=== PATIENT | female | born 1960 | race Caucasian/White ===

== ENCOUNTER 2018-11-14 20:18 | Inpatient (IN) | payer MEDICAID ==
--- NOTE | 2018-11-14 21:06 | ED Physician Chart ---
ED Chief Complaint/HPI - Patient Information Date Seen:: 11/14/18 Time Seen:: 20:45 Chief Complaint:: shortness of breath History of Present Illness:: Patient called paramedics for shortness of breath of one hour duration. She also complains of diffuse myalgias and generalized weakness. She has chest pain along the left inferior sternal border. Patient stated she last had dialysis 1 week ago. Paramedics said she last had dialysis 11 days ago and patient agreed it could have been 11 days. 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) Review:: Nurse's Note Reviewed, Transfer documents Reviewed ED Review of Systems - Review of Systems General/Constitutional: No fever, No chills, Weakness Skin: No skin lesions Head: No headache Eyes: No loss of vision ENT: No earache Neck: No neck pain, No swelling Cardio Vascular: Chest pain Pulmonary: SOB GI: No nausea, No vomiting, No diarrhea G/U: No dysuria Musculoskeletal: Bone or joint pain, Back pain, Muscle pain Hematopoietic: No bruising Allergic/Immuno: No urticaria Neurological: No syncope ED Past Medical History - Past Medical History Past Medical History: HTN, CHF, Asthma/COPD Family History: Diabetes Melitus, HTN Social History: No Alcohol, Care Facility, Other (quit smoking about one year ago) Psychiatricy History: None Family Medical History - Family Member Mother History Unknown: Yes ED Physical Exam - Physical Examination General/Constitutional: Alert Other Gen/Cons comments:: Mildly chronically ill-appearing; mild respiratory distress Head: Atraumatic Eyes: Lids, conjuctiva normal, PERRL Skin: Nl inspection, No rash, No skin lesions, No ecchymosis, Well hydrated, No lymphadenopathy ENMT: External ears, nose nl, TM canals nl, Nasal exam nl Other ENMT comments:: 2.5 out of 4 periodontal disease Neck: No nuchal rigidity Respiratory: Nl effort/Exclusion, Clear to Auscultation, No Wheeze/Rhonchi/Rales Cardio Vascular: RRR, No murmur, gallop, rubs GI: No tenderness/rebounding/guarding, No organomegaly, No hernia, Normal BS's Extremities: Normal digits & nails Neuro/Psych: No focal deficits ED Labs/Radiology/EKG Results - Lab Results Results: Laboratory Results WBC 5.4 Th/cmm (4.8-10.8) 11/14/18 21:10 RBC 3.32 Mil/cmm (3.80-5.10) L 11/14/18 21:10 Hgb 9.6 gm/dL (12-16) L 11/14/18 21:10 Hct 29.2 % (41.0-60) L 11/14/18 21:10 MCV 87.8 fl (81-100) 11/14/18 21:10 MCH 28.9 pg (27.0-31.0) 11/14/18 21:10 MCHC Differential 33.0 pg (28.0-36.0) 11/14/18 21:10 RDW 15.2 % (11.5-20.0) 11/14/18 21:10 Plt Count 213 Th/cmm (150-400) 11/14/18 21:10 MPV 8.6 fl 11/14/18 21:10 Neutrophils % 70.9 % (40.0-80.0) 11/14/18 21:10 Lymphocytes % 14.1 % (20.0-50.0) L 11/14/18 21:10 Monocytes % 11.0 % (2.0-10.0) H 11/14/18 21:10 Eosinophils % 3.6 % (0.0-5.0) 11/14/18 21:10 Basophils % 0.4 % (0.0-2.0) 11/14/18 21:10 PT 11.0 SECONDS (9.5-11.5) 11/14/18 21:10 INR 1.06 (0.5-1.4) 11/14/18 21:10 PTT (Actin FS) 32.2 SECONDS (26.0-38.0) 11/14/18 21:10 Sodium 135 mEq/L (136-145) L 11/14/18 21:10 Potassium 3.3 mEq/L (3.5-5.1) L 11/14/18 21:10 Chloride 96 mEq/L (98-107) L 11/14/18 21:10 Carbon Dioxide 28.9 mEq/L (21.0-31.0) 11/14/18 21:10 Anion Gap 13.4 (7.0-16.0) 11/14/18 21:10 BUN 135 mg/dL (7-25) H* 11/14/18 21:10 Creatinine 1.5 mg/dL (0.6-1.2) H 11/14/18 21:10 Est GFR ( Amer) 45.9 ml/min (>90) 11/14/18 21:10 Est GFR (Non-Af Amer) 37.9 ml/min 11/14/18 21:10 BUN/Creatinine Ratio 90.0 11/14/18 21:10 Glucose 164 mg/dL (70-105) H 11/14/18 21:10 Calcium 8.9 mg/dL (8.6-10.3) 11/14/18 21:10 Magnesium 1.8 mg/dL (1.9-2.7) L 11/14/18 21:10 B-Natriuretic Peptide 76.2 pg/mL (5.0-100.0) 11/14/18 21:10 - EKG Interpretations Rate & Rhythm: normal sinus rhythm with a rate of 59 [place]: normal Comments:: Q waves in V1 and V2 suggesting old septal myocardial infarction ED Assessment - Assessment General Assessment: She has a urinary tract infection and is extremely dehydrated. Patient be admitted to telemetry. I spoke to Vicki. Patient cannot have a CAT scan of her abdomen/pelvis because she is too wide for the table ED Septic Shock - . Is Septic Shock (SBP<90, OR Lactate>4 mmol\L) present?: No - <6hrs of presentation: Vital Signs: Vital Signs - 8 hr 11/14/18 20:20 Temp 97.1 F HR 66 RR 14 BP 96/45 O2 Sat % 96 ED Reassessment (Disposition) - Reassessment Reassessment Condition:: Unchanged - Diagnosis Diagnosis:: Urinary tract infection; severe dehydration; hypokalemia; hyperglycemia - Patient Disposition Admitted to:: Telemetry Admitting Medical Physician:: Norberto Manuel Condition at Disposition:: Stable, Unchanged
[2018-11-14 21:16] LABS: % BASOPHILS 0.4 % (0.0-2.0); % EOSINOPHILS 3.6 % (0.0-5.0); % LYMPHOCYTES 14.1 % (20.0-50.0); % NEUTROPHILS 70.9 % (40.0-80.0); EOSINOPHILE ABSOLUTE 0.2 Th/cmm (0.1-0.4); HEMATOCRIT 29.2 % (41.0-60); HEMOGLOBIN 9.6 gm/dL (12-16); LYMPHOCYTE ABSOLUTE 0.8 Th/cmm (1.5-3.0); MEAN CELL VOLUME 87.8 fl (81-100); MEAN CORPUSCULAR HEMOGLOBIN 28.9 pg (27.0-31.0); MEAN PLATELET VOLUME 8.6 fl; MONOCYTE ABSOLUTE 0.6 Th/cmm (0.3-1.0); NEUTROPHILE ABSOLUTE 3.8 Th/cmm (1.8-8.0); PLATELET COUNT 213 Th/cmm (150-400); RED BLOOD COUNT 3.32 Mil/cmm (3.80-5.10); RED CELL DISTRIBUTION WIDTH 15.2 % (11.5-20.0); WHITE BLOOD COUNT 5.4 Th/cmm (4.8-10.8)
[2018-11-14 21:34] LABS: ANION GAP 13.4 (7.0-16.0); CALCIUM SERUM 8.9 mg/dL (8.6-10.3); CARBON DIOXIDE 28.9 mEq/L (21.0-31.0); CREATININE - SERUM 1.5 mg/dL (0.6-1.2); GFR AFRICAN-AMERICAN 45.9 ml/min (>90); GFR NON AFRICAN-AMERICAN 37.9 ml/min; MAGNESIUM 1.8 mg/dL (1.9-2.7); POTASSIUM SERUM 3.3 mEq/L (3.5-5.1)
[2018-11-14 21:37] LABS: INR 1.06 (0.5-1.4)
[2018-11-14 21:45] LABS: URINE SOURCE FOLEY PORT
[2018-11-14 21:58] LABS: URINE BILIRUBIN NEGATIVE (NEGATIVE); URINE BLOOD LARGE (NEGATIVE); URINE GLUCOSE (UA) NEGATIVE (NEGATIVE); URINE KETONE NEGATIVE (NEGATIVE); URINE LEUKOCYTE ESTERASE MODERATE (NEGATIVE); URINE MICROSCOPIC INDICATED? YES; URINE NITRATE NEGATIVE (NEGATIVE); URINE PROTEIN 100 mg/dL (NEGATIVE); URINE UROBILINOGEN 0.2 E.U./dL (0.2 - 1.0)
[2018-11-14 22:05] LABS: URINE CLARITY CLOUDY (CLEAR); URINE COLOR YELLOW
[2018-11-14 22:08] LABS: URINE BACTERIA MANY /hpf (NONE SEEN); URINE EPITHELIAL CELLS FEW /lpf (FEW); URINE WBC 25-50 /hpf (0-5)
[2018-11-14] MEDS ORDERED: Sodium Chloride 0.9% 1,000 ML IV ONE (22:16)
[2018-11-14] MEDS ORDERED: cefTRIAXone 1 GM in Sodium Chloride 0.9% 50 ML IV ONE (22:16)
[2018-11-15] MEDS ORDERED: Potassium Chloride 20 mEq ER Tab PO ONE ×2 (00:15→00:18)
[2018-11-15] MEDS ORDERED: Sodium Chloride 0.9% 1,000 ML IV ONE (00:15)
[2018-11-15] MEDS ORDERED: Albuterol Nebulizer 2.5mg/3mL HHN PRN ×2 (01:41→02:32)
[2018-11-15] MEDS ORDERED: Ipratropium Neb 0.5 mg/2.5 mL UD HHN PRN (01:41)
[2018-11-15] MEDS ORDERED: Sodium Chloride 0.9% 1,000 ML IV SCH ×2 (01:41→01:58)
[2018-11-15] MEDS ORDERED: Hydrocodone/APAP 5mg/325mg Tab PO PRN (02:11)
[2018-11-15 04:06] VITALS: BP 102/60
[2018-11-15] MEDS ORDERED: INSULIN HUMAN REGULAR 100 UNITS/ML UNIT SUBQ SCH (07:30)
[2018-11-15] MEDS ORDERED: Insulin Glargine 100 units/ml 10ml Vial SUBQ SCH ×3 (07:30→21:00)
[2018-11-15] MEDS: Insulin Glargine 100 units/ml 10ml Vial SUBQ SCH ×3 (08:33→20:25)
[2018-11-15] MEDS: Vitamin B Complex w/Vitamin C Tab PO SCH (08:35)
[2018-11-15] MEDS: Ferrous Sulfate 325 MG TAB PO SCH ×2 (08:38→16:25)
[2018-11-15] MEDS: Diltiazem CD 120 mg 24H PO SCH (08:39)
[2018-11-15] MEDS: buPROPion XL 150 mg T 24 H PO SCH (08:41)
[2018-11-15] MEDS ORDERED: Non-Formulary Item 1 EA (Zinc Sulfate [Zinc Sulfate] 220 MG) PO SCH (09:00)
[2018-11-15] MEDS ORDERED: Non-Formulary Item 1 EA (Gabapentin [Neurontin] 600 MG) PO SCH (09:00)
[2018-11-15] MEDS ORDERED: buPROPion XL 150 mg T 24 H PO SCH (09:00)
[2018-11-15] MEDS ORDERED: Diltiazem CD 120 mg 24H PO SCH (09:00)
[2018-11-15] MEDS ORDERED: Ferrous Sulfate 325 MG TAB PO SCH (09:00)
[2018-11-15] MEDS ORDERED: Vitamin B Complex w/Vitamin C Tab PO SCH (09:00)
[2018-11-15] MEDS ORDERED: Non-Formulary Item 1 EA (Ascorbate Calcium [Vitamin C] 500 MG) PO SCH (09:00)
[2018-11-15] MEDS ORDERED: Non-Formulary Item 1 EA (Losartan Potassium [Cozaar] 100 MG) PO SCH (09:00)
[2018-11-15] MEDS ORDERED: Non-Formulary Item 1 EA (Vitamin B Complex [Vitamin B Complex] 1 TAB) PO SCH (09:00)
[2018-11-15] MEDS ORDERED: DILTIAZEM HCL 120 MG PO SCH (09:00)
--- NOTE | 2018-11-15 09:12 | Diagnostic Imaging Report ---
Portable chest x-ray Time: 2208 History: Congestive fat failure Allowing for portable technique the heart size is normal. No focal pulmonary parenchymal processes. No hilar or mediastinal abnormalities. Impression: No acute abnormalities.
--- NOTE | 2018-11-15 10:27 | History & Physical ---
ADMIT DATE: 11/15/2018 CHIEF COMPLAINT: Shortness of breath and increasing weakness. HISTORY OF PRESENT ILLNESS: This is a 58-year-old female who is a [place] [facility] resident of [facility], who has a 1-day history of shortness of breath, associated with increased generalized weakness. The patient also complained of having pain upon urination, no reports of any fevers at the [place] [facility]. The patient also stated that the last time she had dialysis was a week ago. For further management, the patient is admitted. PAST MEDICAL HISTORY: Hypertension, CHF, COPD, acute renal failure and type 2 diabetes. FAMILY HISTORY: Noncontributory. SOCIAL HISTORY: The patient is a [place] [facility] resident, requiring 24-hour nursing care. The patient recently quit smoking. FAMILY HISTORY: Noncontributory. ALLERGIES: FLUOXETINE. MEDICATIONS: Please see medication list. REVIEW OF SYSTEMS: GENERAL: Complains of weakness. CARDIOVASCULAR: Denies any chest pain. RESPIRATORY: Denies any shortness of breath. GASTROINTESTINAL: Denies nausea, vomiting, abdominal pain. GENITOURINARY: Complains of dysuria and hematuria. MUSCULOSKELETAL: Denies any bone or joint pain. All other systems are reviewed. PHYSICAL EXAMINATION: GENERAL: The patient is morbidly obese, awake, alert, in no apparent distress. VITAL SIGNS: Temperature 97.1, heart rate 61, blood pressure 97/44, respirations of 19, O2 at 95%. HEENT: Head is normocephalic, atraumatic. NECK: Supple. No mass. LUNGS: Clear bilaterally. HEART: Regular rhythm. ABDOMEN: Soft, nontender, nondistended. EXTREMITIES: +1 pitting edema bilateral lower extremity. LABORATORY DATA: WBC 5.4, H and H 9.6 and 29.2, platelet of 213. Sodium 135, potassium 3.3, chloride of 96, BUN 136, creatinine of 1.5, glucose of 164, magnesium of 1.8. DIAGNOSTICS: The patient had a chest x-ray done and impression is no acute abnormalities. ASSESSMENT: Acute urinary tract infection, acute renal failure, morbidly obese, anemia, hypomagnesemia, morbid obesity, hypertension, congestive heart failure, asthma, chronic obstructive pulmonary disease, type 2 diabetes. PLAN: The patient to be admitted to the telemetry unit. We will get Nephrology consultation. We will treat the patient with gentle IV fluids for hydration, IV antibiotics of Rocephin. We will get PT evaluation. We will send urine for culture. We will also get wound care consult as well. We will hold the patient's blood pressure medications for now due to patient's systolic pressure in the 90s. We will get followup labs for tomorrow morning. Accu-Chek a.c. and at bedtime with sliding scale. I will continue to monitor this patient. JOB# [id number]
[2018-11-15] MEDS: cefTRIAXone 1 GM in Sodium Chloride 0.9% 50 ML IV SCH (11:49)
[2018-11-15] MEDS: INSULIN LISPRO SLIDING SCALE 100 UNITS/ML UNIT SUBQ SCH ×3 (12:03→20:25)
[2018-11-15] MEDS ORDERED: Mag Sulfate 2gm/50mL Premix 2 GM/50 ML BAG IV ONE (15:37)
[2018-11-15] MEDS: Sodium Chloride 0.9% 1,000 ML IV SCH (16:19)
[2018-11-15] MEDS: Atorvastatin Calcium 10 MG TAB PO SCH (20:24)
[2018-11-15] MEDS ORDERED: Atorvastatin Calcium 10 MG TAB PO SCH (21:00)
[2018-11-15] MEDS: Hydrocodone/APAP 5mg/325mg Tab PO PRN (21:57)
[2018-11-15 23:40] LABS: EOSINOPHIL SMEAR SOURCE URINE
[2018-11-15 23:41] LABS: EOSINOPHILS SMEAR COUNT NONE SEEN (NONE SEEN)
--- NOTE | 2018-11-16 05:11 | Consultation ---
DATE OF CONSULTATION: 11/15/2018 REASON FOR CONSULTATION: Worsening kidney function, electrolyte imbalance, and fluid management. HISTORY OF PRESENT ILLNESS: This is a 58-year-old female with past medical history of chronic kidney disease, who came in because of lower abdominal pain. Two years prior to admission, the patient was diagnosed to have uterine cancer and had a total abdominal hysterectomy. She was also scheduled at that time to have radiation treatment, but developed arrhythmia. Thus, she never had a radiation treatment. However, since then, she has had intermittent abdominal discomfort. Three days prior to admission, she developed lower abdominal pain, worse than usual. She stated that she had not had any bowel movement for several days. She noted that she had dark stools (on oral iron). She also noted gross hematuria. She has been on Xarelto, which was discontinued. A few hours prior to admission, she had labs done, which were abnormal. Since she also has ongoing lower abdominal pain, she was brought to the Emergency Room. Her chest x-ray revealed no acute disease; however, her BUN/creatinine were 136/1.5. She denied any nausea and vomiting, no diarrhea. She is currently on Lasix and metolazone. PAST MEDICAL HISTORY: 1. Chronic kidney disease. 2. Type 2 diabetes mellitus. 3. Essential hypertension. 4. Right lower extremity cellulitis. 5. Chronic atrial fibrillation. 6. Coronary artery disease. 7. Morbid obesity. 8. Recurrent UTI. 9. Iron deficiency anemia. 10. Dyslipidemia. 11. Depression. 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 13. History of uterine cancer. PAST SURGICAL HISTORY: 1. Status post total abdominal hysterectomy. 2. Status post repair of horseshoe shaped kidney. CURRENT MEDICATIONS: Currently on albuterol, ascorbic acid, atorvastatin, buspirone, carvedilol, ceftriaxone, clonidine, diltiazem, duloxetine, ferrous sulfate, gabapentin, glargine, ipratropium, losartan, pantoprazole, pioglitazone, trazodone, and zinc sulfate. ALLERGIES: Allergic to FLUOXETINE. SOCIAL HISTORY: She did have a history of smoking, but quit several years ago. She drinks alcoholic beverages on special events. 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 FAMILY HISTORY: Noncontributory to present illness. REVIEW OF SYSTEMS: CONSTITUTIONAL: She did complain of intermittent weakness. No fever or chills. Appetite had been fair. HEENT: No headaches, no dizziness. CARDIORESPIRATORY: No chest pain, palpitations, diaphoresis. She has occasional dyspnea on exertion, as well as cough. GASTROINTESTINAL: No nausea and vomiting and has a chronic lower abdominal discomfort. No nausea, vomiting, hematochezia, melena, nor diarrhea. She has constipation and also reported some dark stools. MUSCULOSKELETAL: Multiple joint arthralgias. GENITOURINARY: History of kidney failure. No dysuria, no hematuria. HEMATOLOGIC: Anemia of chronic disease. NEUROPSYCHIATRIC: No syncopal episode nor seizure activity. PHYSICAL EXAMINATION: GENERAL: The patient is morbidly obese, in some distress due to her lower abdominal pain. VITAL SIGNS: Blood pressure is 107/37, pulse 64, and temperature 97.4 degrees. SKIN: Poor turgor, warm, no rash, no jaundice appreciated. HEENT: Head normocephalic, atraumatic. Eyes: Extraocular muscles intact. Pupils equal, round, reactive to light and accommodates. Anicteric sclerae. Pale conjunctivae. Nose, midline nasal septum. Mouth: Dry mucosa. Poor dentition. NECK: Supple, no adenopathy, no thyromegaly, no bruits. Trachea palpated in the midline. CHEST AND CARDIOVASCULAR: S1, S2, distant heart sounds, but no rub nor murmur appreciated. LUNGS: Equal expansion. No use of accessory muscles. No supraclavicular retractions. Decreased breath sounds, few rhonchi, but no rales nor wheezes appreciated. BREASTS: Pendulous symmetrical, without any discharge. ABDOMEN: Obese, soft, positive for bowel sounds. No bruits either diastolic or systolic. RECTAL: The patient refused. GENITOURINARY: Normal appearing female genitalia. MUSCULOSKELETAL: No effusions present in her joints, but unable to assess her range of motion. EXTREMITIES: No evidence of any edema, cyanosis, nor clubbing with a dressing on her left lower leg. She has a palpable femoral, but unable to fully appreciate popliteal and dorsalis pedis pulses. NEUROLOGIC: The patient is alert, verbal, motor is 5/5. Cranial nerves III through XII intact. Sensory intact. LABORATORY DATA: Did reveal white count 5.4, hemoglobin 9.6, hematocrit 29.2, and platelets is 213. Sodium 135, potassium 3.3, chloride 96, CO2 28, BUN 136, creatinine 1.5, glucose 164, magnesium is 1.8. BNP is 76.2. IMPRESSION: 1. Acute kidney injury on chronic kidney disease, MDRD GFR 37.9 mL per minute, stage III. Chronic kidney disease is secondary to longstanding history of diabetes, giving rise to diabetic nephropathy with some underlying hypertensive nephrosclerosis. Acute kidney injury is initially from prerenal azotemia. The patient currently on 2 diuretics. Physical exam revealed poor skin turgor with dry oral mucosa. She is also taking high dose of angiotensin receptor keo. These medications can eventually give rise to a decrease in effective circulating volume and prerenal azotemia could have progressed to acute tubular injury. She also has recurring urinary tract infection, which may also lead to development of acute interstitial nephritis. A markedly elevated BUN to creatinine ratio should also cause us to take the possibility of a gastrointestinal bleed. 2. Lower abdominal pain secondary to constipation, possible colitis. 3. Dark stools secondary to iron tablets, possible lower as well as upper gastrointestinal bleed. 4. Recurrent urinary tract infection. 5. Type 2 diabetes mellitus with chronic kidney disease. 6. Essential hypertension with chronic kidney disease. 7. Right lower extremity cellulitis. 8. Chronic atrial fibrillation. 9. Coronary artery disease. 10. Morbid obesity. 11. Iron-deficiency anemia. 12. Dyslipidemia. 13. Depression. 14. Congenital horseshoe shaped kidney, status post surgical repair. 15. History of uterine carcinoma, status post total abdominal hysterectomy. PLAN: 1. IV fluids. 2. CT scan of the abdomen and pelvis. 3. Urine C and S. 4. Urine sodium, eosinophils, and creatinine. 5. Urine microalbumin to creatinine ratio. 6. Stool for occult blood. 7. Follow up electrolytes, hemoglobin A1c, TSH, and CBC. 8. Replace magnesium. 9. Start Epogen. Thank you, Dr. Manuel, for this consult. We will follow the patient closely with you. JOB# [id number]
[2018-11-16] MEDS: Hydrocodone/APAP 5mg/325mg Tab PO PRN ×2 (06:36→23:53)
[2018-11-16] MEDS: Sodium Chloride 0.9% 1,000 ML IV SCH ×2 (06:37→17:21)
[2018-11-16 06:44] LABS: % BASOPHILS 0.6 % (0.0-2.0); % EOSINOPHILS 3.9 % (0.0-5.0); % LYMPHOCYTES 17.8 % (20.0-50.0); % MONOCYTES 12.9 % (2.0-10.0); % NEUTROPHILS 64.8 % (40.0-80.0); EOSINOPHILE ABSOLUTE 0.2 Th/cmm (0.1-0.4); HEMATOCRIT 29.4 % (41.0-60); HEMOGLOBIN 9.8 gm/dL (12-16); MEAN CELL VOLUME 88.2 fl (81-100); MEAN CORPUSCULAR HEMOGLOBIN 29.4 pg (27.0-31.0); MEAN CORPUSCULAR HGB CONC 33.4 pg (28.0-36.0); MONOCYTE ABSOLUTE 0.7 Th/cmm (0.3-1.0); NEUTROPHILE ABSOLUTE 3.5 Th/cmm (1.8-8.0); PLATELET COUNT 217 Th/cmm (150-400); RED BLOOD COUNT 3.33 Mil/cmm (3.80-5.10); WHITE BLOOD COUNT 5.4 Th/cmm (4.8-10.8)
[2018-11-16 06:58] LABS: MAGNESIUM 2.2 mg/dL (1.9-2.7); PHOSPHOROUS 2.9 mg/dL (2.5-5.0)
[2018-11-16 06:59] LABS: ANION GAP 12.4 (7.0-16.0); CALCIUM SERUM 8.9 mg/dL (8.6-10.3); CREATININE - SERUM 1.2 mg/dL (0.6-1.2); GFR AFRICAN-AMERICAN 59.3 ml/min (>90); POTASSIUM SERUM 3.4 mEq/L (3.5-5.1); URIC ACID 8.8 mg/dL (2.3-6.6)
[2018-11-16] MEDS: INSULIN LISPRO SLIDING SCALE 100 UNITS/ML UNIT SUBQ SCH ×4 (08:30→20:56)
[2018-11-16] MEDS ORDERED: Potassium Chloride 20 mEq ER Tab PO SCH (09:00)
[2018-11-16] MEDS: Ferrous Sulfate 325 MG TAB PO SCH ×2 (09:52→17:29)
[2018-11-16] MEDS: Vitamin B Complex w/Vitamin C Tab PO SCH (09:52)
[2018-11-16] MEDS: Diltiazem CD 120 mg 24H PO SCH (09:53)
[2018-11-16] MEDS: buPROPion XL 150 mg T 24 H PO SCH (09:54)
[2018-11-16] MEDS: Epoetin Alfa 20000 Units/mL Vial SUBQ SCH (10:03)
[2018-11-16] MEDS: cefTRIAXone 1 GM in Sodium Chloride 0.9% 50 ML IV SCH (12:51)
--- NOTE | 2018-11-16 16:07 | Internal Medicine Prog Note ---
Internal Medicine Subjective - Subjective Service Date: 11/16/18 Patient seen and examined:: with staff Patient is:: awake, verbal Per staff patient has:: tolerating meds Internal Medicine Objective - Results Result Diagrams: 11/16/18 06:20 11/16/18 06:20 Recent Labs: Laboratory Last Values WBC 5.4 Th/cmm (4.8-10.8) 11/16/18 06:20 RBC 3.33 Mil/cmm (3.80-5.10) L 11/16/18 06:20 Hgb 9.8 gm/dL (12-16) L 11/16/18 06:20 Hct 29.4 % (41.0-60) L 11/16/18 06:20 MCV 88.2 fl (81-100) 11/16/18 06:20 MCH 29.4 pg (27.0-31.0) 11/16/18 06:20 MCHC Differential 33.4 pg (28.0-36.0) 11/16/18 06:20 RDW 15.0 % (11.5-20.0) 11/16/18 06:20 Plt Count 217 Th/cmm (150-400) 11/16/18 06:20 MPV 9.0 fl 11/16/18 06:20 Neutrophils % 64.8 % (40.0-80.0) 11/16/18 06:20 Lymphocytes % 17.8 % (20.0-50.0) L 11/16/18 06:20 Monocytes % 12.9 % (2.0-10.0) H 11/16/18 06:20 Eosinophils % 3.9 % (0.0-5.0) 11/16/18 06:20 Basophils % 0.6 % (0.0-2.0) 11/16/18 06:20 Eos Smear Source URINE 11/15/18 21:30 Eos Smear Total Cells NONE SEEN (NONE SEEN) 11/15/18 21:30 PT 11.0 SECONDS (9.5-11.5) 11/14/18 21:10 INR 1.06 (0.5-1.4) 11/14/18 21:10 PTT (Actin FS) 32.2 SECONDS (26.0-38.0) 11/14/18 21:10 Sodium 139 mEq/L (136-145) 11/16/18 06:20 Potassium 3.4 mEq/L (3.5-5.1) L 11/16/18 06:20 Chloride 102 mEq/L (98-107) 11/16/18 06:20 Carbon Dioxide 28.0 mEq/L (21.0-31.0) 11/16/18 06:20 Anion Gap 12.4 (7.0-16.0) 11/16/18 06:20 BUN 107 mg/dL (7-25) H* 11/16/18 06:20 Creatinine 1.2 mg/dL (0.6-1.2) 11/16/18 06:20 Est GFR ( Amer) 59.3 ml/min (>90) 11/16/18 06:20 Est GFR (Non-Af Amer) 49.0 ml/min 11/16/18 06:20 BUN/Creatinine Ratio 89.2 11/16/18 06:20 Glucose 177 mg/dL (70-105) H 11/16/18 06:20 POC Glucose 191 MG/DL (70 - 105) H 11/16/18 11:55 Uric Acid 8.8 mg/dL (2.3-6.6) H 11/16/18 06:20 Calcium 8.9 mg/dL (8.6-10.3) 11/16/18 06:20 Phosphorus 2.9 mg/dL (2.5-5.0) 11/16/18 06:20 Magnesium 2.2 mg/dL (1.9-2.7) 11/16/18 06:20 B-Natriuretic Peptide 76.2 pg/mL (5.0-100.0) 11/14/18 21:10 TSH 2.40 uIU/ml (0.34-5.60) 11/14/18 21:10 Urine Source [place] 11/14/18 21:40 Urine Color YELLOW 11/14/18 21:40 Urine Clarity CLOUDY (CLEAR) H 11/14/18 21:40 Urine pH 6.0 (4.6 - 8.0) 11/14/18 21:40 Ur Specific [place] 1.015 (1.005-1.030) 11/14/18 21:40 Urine Protein 100 mg/dL (NEGATIVE) H 11/14/18 21:40 Urine Glucose (UA) NEGATIVE mg/dL (NEGATIVE) 11/14/18 21:40 Urine Ketones NEGATIVE mg/dL (NEGATIVE) 11/14/18 21:40 Urine Blood LARGE (NEGATIVE) H 11/14/18 21:40 Urine Nitrate NEGATIVE (NEGATIVE) 11/14/18 21:40 Urine Bilirubin NEGATIVE (NEGATIVE) 11/14/18 21:40 Urine Urobilinogen 0.2 E.U./dL (0.2 - 1.0) 11/14/18 21:40 Ur Leukocyte Esterase MODERATE (NEGATIVE) H 11/14/18 21:40 Urine RBC 5-10 /hpf (0-5) H 11/14/18 21:40 Urine WBC 25-50 /hpf (0-5) H 11/14/18 21:40 Ur Epithelial Cells FEW /lpf (FEW) 11/14/18 21:40 Urine Bacteria MANY /hpf (NONE SEEN) H 11/14/18 21:40 Urine Creatinine 35.0 mg/dl (28.0-217.0) 11/15/18 21:30 Stool Occult Blood POSITIVE (NEGATIVE) H 11/15/18 21:25 - Physical Exam Vitals and I&O: Vital Signs Temp 97.7 F 11/16/18 09:02 Pulse 63 11/16/18 09:53 Resp 19 11/16/18 09:02 BP 112/37 11/16/18 09:02 Pulse Ox 95 11/16/18 09:02 Intake & Output 11/15/18 11/16/18 11/16/18 18:59 06:59 18:59 Intake Total 790 1360 240 Balance 790 1360 240 Weight (lbs) 362 lb 362 lb 362 lb Intake: Intake, IV Amount 50 1000 Sodium Chloride 0.9% 1, 1000 000 ml @ 100 mls/hr IV . Q10H [facility] Rx#:[id number] cefTRIAXone 1 gm In 50 Sodium Chloride 0.9% 50 ml @ 100 mls/hr IV Q24HR [facility] Rx#:[id number] Oral 740 360 240 Other: # Voids 3 1 # Bowel Movements 1 1 Stool Characteristics Soft Soft Soft Weight Source Bedscale Bedscale Bedscale Active Medications: Current Medications Acetaminophen/Hydrocodone Bitart ([place] 5mg/325mg) 1 tab PO Q8H PRN PRN Reason: Pain (Severe) Stop: 01/14/19 21:40 Last Admin: 11/16/18 06:36 Dose: 1 tab Albuterol Sulfate (Albuterol 2.5mg/3ml Neb Ud) 2.5 mg HHN Q2H PRN PRN Reason: Shortness of Breath or Wheeze Stop: 01/14/19 01:40 Ascorbic Acid (Vitamin C) 500 mg PO BID [facility] Stop: 01/14/19 08:59 Last Admin: 11/16/18 09:53 Dose: 500 mg Atorvastatin Calcium (Lipitor) 10 mg PO HS [facility]; Protocol Stop: 01/14/19 20:59 Last Admin: 11/15/18 20:24 Dose: 10 mg Bupropion HCl (Wellbutrin Xl) 150 mg PO DAILY [facility]; Protocol Stop: 01/14/19 08:59 Last Admin: 11/16/18 09:54 Dose: 150 mg Buspirone HCl (Buspar) 20 mg PO BID [facility]; Protocol Stop: 01/14/19 08:59 Last Admin: 11/16/18 09:52 Dose: 20 mg Carvedilol (Coreg) 12.5 mg PO BIDWM [facility] Stop: 01/14/19 08:59 Last Admin: 11/16/18 08:00 Dose: Not Given Diltiazem HCl (Cardizem Cd) 120 mg PO DAILY [facility] Stop: 01/14/19 08:59 Last Admin: 11/16/18 09:53 Dose: 120 mg Duloxetine HCl (Cymbalta) 30 mg PO DAILY [facility]; Protocol Stop: 01/14/19 08:59 Last Admin: 11/16/18 09:52 Dose: 30 mg Epoetin Amaury (Epogen) 10,000 units SUBQ TuThSa [facility] Stop: 01/14/19 15:44 Last Admin: 11/16/18 10:03 Dose: 10,000 units Ferrous Sulfate (Iron) 325 mg PO BID [facility] Stop: 01/14/19 08:59 Last Admin: 11/16/18 09:52 Dose: 325 mg Gabapentin (Neurontin) 600 mg PO BID [facility] Stop: 01/14/19 08:59 Last Admin: 11/16/18 09:52 Dose: 600 mg Ceftriaxone Sodium 1 gm/ (Sodium Chloride) 50 mls @ 100 mls/hr IV Q24HR [facility] Stop: 01/14/19 10:14 Last Admin: 11/16/18 12:51 Dose: 100 mls/hr Sodium Chloride (Nacl 0.9%) 1,000 mls @ 100 mls/hr IV .Q10H [facility] Stop: 01/14/19 15:14 Last Admin: 11/16/18 06:37 Dose: 100 mls/hr Insulin Glargine (Lantus Insulin) 54 units SUBQ HS [facility] Stop: 01/14/19 20:59 Last Admin: 11/15/18 20:25 Dose: 54 units Insulin Human Lispro (Humalog Insulin Sliding Scale) 0 units SUBQ ACHS [facility]; Protocol Stop: 01/14/19 07:29 Last Admin: 11/16/18 12:50 Dose: 3 units Ipratropium [place] (Atrovent Neb 0.5mg/2.5ml) 0.5 mg HHN Q2HR PRN PRN Reason: Shortness of Breath or Wheeze Stop: 01/14/19 01:40 Lorazepam (Ativan) 1 mg PO Q6HR PRN; Protocol PRN Reason: Agitation Stop: 01/14/19 21:42 Last Admin: 11/16/18 13:33 Dose: 1 mg Pantoprazole Sodium (Protonix) 40 mg IVP DAILY [facility] Stop: 01/14/19 08:59 Last Admin: 11/16/18 09:54 Dose: 40 mg Pioglitazone HCl (Actos) 30 mg PO QDAC [facility] Stop: 01/14/19 07:29 Last Admin: 11/16/18 06:36 Dose: 30 mg Trazodone HCl (Desyrel) 50 mg PO HS [facility]; Protocol Stop: 01/14/19 20:59 Last Admin: 11/15/18 20:24 Dose: 50 mg Vitamin B Complex/Vit C/Folic Acid (Vitamin B Complex W/Vitamin C) 1 tab PO DAILY [facility] Stop: 01/14/19 08:59 Last Admin: 11/16/18 09:52 Dose: 1 tab Zinc Sulfate (Zinc Sulfate) 220 mg PO DAILY [facility] Stop: 01/14/19 08:59 Last Admin: 11/16/18 09:52 Dose: 220 mg General: weak, alert HEENT: NC/AT, PERRLA Neck: Supple Lungs: CTAB Cardiovascular: RRR, Normal S1, Normal S2 Abdomen: soft, non-tender, non-distended Extremities: excoriation Neurological: alert, unable to follow command Internal Medicine Assmt/Plan - Assessment Assessment: Acute urinary tract infection, acute renal failure, morbidly obese, anemia, hypomagnesemia, morbid obesity, hypertension, congestive heart failure, asthma, chronic obstructive pulmonary disease, type 2 diabetes. - Plan Plan: continue iv rocephin am labs urine culture pending continue current plan of care Nutritional Asmnt/Malnutr-PDOC - Dietary Evaluation Malnutrition Findings (Please click <Entered> for more info): Nutritional Asmnt/Malnutrition Start: 11/15/18 12: 21 Text: Status: Complete Freq: Protocol: Document 11/15/18 12:21 MERCEDES (Rec: 11/15/18 12:35 MERCEDES BRUSH- [id number]) Nutritional Asmnt/Malnutrition Patient General Information Nutritional Screening High Risk Diagnosis UTI & Dehydration Pertinent Medical Hx/Surgical Hx HTN, CHF, COPD, acute renal failure, type 2 diabetes Subjective Information Patient was admitted from [facility]; on dialysis at time of visit. Patient crying. Current Diet Order/ Nutrition Support Cardiac Patient / S.O Not Indicated Pertinent Medications vitmain C, Lipitor, Iron, Lantus, Humalog, protonix, Vitamin B complex with C, zinc sulfate Pertinent Labs (11/14) Na 135, K 3.3, BUN 136, Cr 1.5, Mg 1.8, glucose 141- 200 Nutritional Hx/Data Height 5 ft 7 in Height (Calculated Centimeters) 170.2 Current Weight (lbs) 362 lb Weight (Calculated Kilograms) 164.2 Weight (Calculated Grams) 439800.4 [place] Body Weight 148 % [place] Body Weight 244 Body Mass Index (BMI) 56.7 Recent Weight Change No Weight Status Morbidly Obese GI Symptoms GI Symptoms None Last BM none noted since admission Difficult in: None Food Allergies No Cultural/Ethnic/Voodoo Belief none indicated Usual diet at home unknown Skin Integrity/Comment: [place] 14, skin tear Current %PO Good (75-100%) Estimated Nutritional Goals BEE in Kcals: Adj wt of IBW Calories/Kcals/Kg using Adj BW 91.5kg Kcals Calculated ~5674-2220 kcal/day Protein: Adj wt of IBW Protein g/k-1.2 gm/kg Protein Calculated 90-110 gm/day Fluid: ml ~2332-5231 ml/day (1 ml/kcal) Nutritional Problem 1. Problem Problem Altered nutrition related lab values related to Etiology electrolyte imbalance and hyperglycemia aeb Signs/Symptoms: Na 135, K 3.3, mg 1.8, glucose 141-200 Intervention/Recommendation Comments 1. Consider modifying diet to 60 gm CCHO. No need for renal diet at this time due to hypokalemia, no need for low potassium diet. Check phosphorus level to determine need for dietary phosphorus restriction. Current diet is low in sodium. Expected Outcomes/Goals Expected Outcomes/Goals Oral itnake >75% of meals, weight stable, nutrition related labs WNL F/U MR 11/18-
--- NOTE | 2018-11-16 17:37 | General Progress Note ---
Subjective - Review of Systems Service Date: 11/16/18 Subjective: alert, still w/ lower abd pain Objective - Results Result Diagrams: 11/16/18 06:20 11/16/18 06:20 Recent Labs: Laboratory Last Values WBC 5.4 Th/cmm (4.8-10.8) 11/16/18 06:20 RBC 3.33 Mil/cmm (3.80-5.10) L 11/16/18 06:20 Hgb 9.8 gm/dL (12-16) L 11/16/18 06:20 Hct 29.4 % (41.0-60) L 11/16/18 06:20 MCV 88.2 fl (81-100) 11/16/18 06:20 MCH 29.4 pg (27.0-31.0) 11/16/18 06:20 MCHC Differential 33.4 pg (28.0-36.0) 11/16/18 06:20 RDW 15.0 % (11.5-20.0) 11/16/18 06:20 Plt Count 217 Th/cmm (150-400) 11/16/18 06:20 MPV 9.0 fl 11/16/18 06:20 Neutrophils % 64.8 % (40.0-80.0) 11/16/18 06:20 Lymphocytes % 17.8 % (20.0-50.0) L 11/16/18 06:20 Monocytes % 12.9 % (2.0-10.0) H 11/16/18 06:20 Eosinophils % 3.9 % (0.0-5.0) 11/16/18 06:20 Basophils % 0.6 % (0.0-2.0) 11/16/18 06:20 Eos Smear Source URINE 11/15/18 21:30 Eos Smear Total Cells NONE SEEN (NONE SEEN) 11/15/18 21:30 PT 11.0 SECONDS (9.5-11.5) 11/14/18 21:10 INR 1.06 (0.5-1.4) 11/14/18 21:10 PTT (Actin FS) 32.2 SECONDS (26.0-38.0) 11/14/18 21:10 Sodium 139 mEq/L (136-145) 11/16/18 06:20 Potassium 3.4 mEq/L (3.5-5.1) L 11/16/18 06:20 Chloride 102 mEq/L (98-107) 11/16/18 06:20 Carbon Dioxide 28.0 mEq/L (21.0-31.0) 11/16/18 06:20 Anion Gap 12.4 (7.0-16.0) 11/16/18 06:20 BUN 107 mg/dL (7-25) H* 11/16/18 06:20 Creatinine 1.2 mg/dL (0.6-1.2) 11/16/18 06:20 Est GFR ( Amer) 59.3 ml/min (>90) 11/16/18 06:20 Est GFR (Non-Af Amer) 49.0 ml/min 11/16/18 06:20 BUN/Creatinine Ratio 89.2 11/16/18 06:20 Glucose 177 mg/dL (70-105) H 11/16/18 06:20 POC Glucose 191 MG/DL (70 - 105) H 11/16/18 11:55 Uric Acid 8.8 mg/dL (2.3-6.6) H 11/16/18 06:20 Calcium 8.9 mg/dL (8.6-10.3) 11/16/18 06:20 Phosphorus 2.9 mg/dL (2.5-5.0) 11/16/18 06:20 Magnesium 2.2 mg/dL (1.9-2.7) 11/16/18 06:20 B-Natriuretic Peptide 76.2 pg/mL (5.0-100.0) 11/14/18 21:10 TSH 2.40 uIU/ml (0.34-5.60) 11/14/18 21:10 Urine Source [place] 11/14/18 21:40 Urine Color YELLOW 11/14/18 21:40 Urine Clarity CLOUDY (CLEAR) H 11/14/18 21:40 Urine pH 6.0 (4.6 - 8.0) 11/14/18 21:40 Ur Specific [place] 1.015 (1.005-1.030) 11/14/18 21:40 Urine Protein 100 mg/dL (NEGATIVE) H 11/14/18 21:40 Urine Glucose (UA) NEGATIVE mg/dL (NEGATIVE) 11/14/18 21:40 Urine Ketones NEGATIVE mg/dL (NEGATIVE) 11/14/18 21:40 Urine Blood LARGE (NEGATIVE) H 11/14/18 21:40 Urine Nitrate NEGATIVE (NEGATIVE) 11/14/18 21:40 Urine Bilirubin NEGATIVE (NEGATIVE) 11/14/18 21:40 Urine Urobilinogen 0.2 E.U./dL (0.2 - 1.0) 11/14/18 21:40 Ur Leukocyte Esterase MODERATE (NEGATIVE) H 11/14/18 21:40 Urine RBC 5-10 /hpf (0-5) H 11/14/18 21:40 Urine WBC 25-50 /hpf (0-5) H 11/14/18 21:40 Ur Epithelial Cells FEW /lpf (FEW) 11/14/18 21:40 Urine Bacteria MANY /hpf (NONE SEEN) H 11/14/18 21:40 Urine Creatinine 35.0 mg/dl (28.0-217.0) 11/15/18 21:30 Stool Occult Blood POSITIVE (NEGATIVE) H 11/15/18 21:25 - Physical Exam Vitals and I&O: Vital Signs Temp 97.7 F 11/16/18 09:02 Pulse 63 11/16/18 09:53 Resp 19 11/16/18 09:02 BP 112/37 11/16/18 09:02 Pulse Ox 95 11/16/18 09:02 Intake & Output 11/15/18 11/16/18 11/16/18 18:59 06:59 18:59 Intake Total 790 1360 1240 Balance 790 1360 1240 Weight (lbs) 164.2 kg 164.2 kg 164.2 kg Intake: Intake, IV Amount 50 1000 1000 Sodium Chloride 0.9% 1, 1000 1000 000 ml @ 100 mls/hr IV . Q10H [facility] Rx#:[id number] cefTRIAXone 1 gm In 50 Sodium Chloride 0.9% 50 ml @ 100 mls/hr IV Q24HR [facility] Rx#:[id number] Oral 740 360 240 Other: # Voids 3 1 # Bowel Movements 1 1 Stool Characteristics Soft Soft Soft Weight Source Bedscale Bedscale Bedscale Active Medications: Current Medications Acetaminophen/Hydrocodone Bitart ([place] 5mg/325mg) 1 tab PO Q8H PRN PRN Reason: Pain (Severe) Stop: 01/14/19 21:40 Last Admin: 11/16/18 06:36 Dose: 1 tab Albuterol Sulfate (Albuterol 2.5mg/3ml Neb Ud) 2.5 mg HHN Q2H PRN PRN Reason: Shortness of Breath or Wheeze Stop: 01/14/19 01:40 Ascorbic Acid (Vitamin C) 500 mg PO BID [facility] Stop: 01/14/19 08:59 Last Admin: 11/16/18 17:29 Dose: 500 mg Atorvastatin Calcium (Lipitor) 10 mg PO HS [facility]; Protocol Stop: 01/14/19 20:59 Last Admin: 11/15/18 20:24 Dose: 10 mg Bupropion HCl (Wellbutrin Xl) 150 mg PO DAILY [facility]; Protocol Stop: 01/14/19 08:59 Last Admin: 11/16/18 09:54 Dose: 150 mg Buspirone HCl (Buspar) 20 mg PO BID [facility]; Protocol Stop: 01/14/19 08:59 Last Admin: 11/16/18 17:29 Dose: 20 mg Carvedilol (Coreg) 12.5 mg PO BIDWM [facility] Stop: 01/14/19 08:59 Last Admin: 11/16/18 08:00 Dose: Not Given Diltiazem HCl (Cardizem Cd) 120 mg PO DAILY [facility] Stop: 01/14/19 08:59 Last Admin: 11/16/18 09:53 Dose: 120 mg Duloxetine HCl (Cymbalta) 30 mg PO DAILY [facility]; Protocol Stop: 01/14/19 08:59 Last Admin: 11/16/18 09:52 Dose: 30 mg Epoetin Amaury (Epogen) 10,000 units SUBQ TuThSa [facility] Stop: 01/14/19 15:44 Last Admin: 11/16/18 10:03 Dose: 10,000 units Ferrous Sulfate (Iron) 325 mg PO BID [facility] Stop: 01/14/19 08:59 Last Admin: 11/16/18 17:29 Dose: 325 mg Gabapentin (Neurontin) 600 mg PO BID [facility] Stop: 01/14/19 08:59 Last Admin: 11/16/18 17:29 Dose: 600 mg Ceftriaxone Sodium 1 gm/ (Sodium Chloride) 50 mls @ 100 mls/hr IV Q24HR [facility] Stop: 01/14/19 10:14 Last Admin: 11/16/18 12:51 Dose: 100 mls/hr Sodium Chloride (Nacl 0.9%) 1,000 mls @ 100 mls/hr IV .Q10H [facility] Stop: 01/14/19 15:14 Last Admin: 11/16/18 17:21 Dose: 100 mls/hr Insulin Glargine (Lantus Insulin) 54 units SUBQ HS [facility] Stop: 01/14/19 20:59 Last Admin: 11/15/18 20:25 Dose: 54 units Insulin Human Lispro (Humalog Insulin Sliding Scale) 0 units SUBQ ACHS [facility]; Protocol Stop: 01/14/19 07:29 Last Admin: 11/16/18 17:28 Dose: 6 units Ipratropium [place] (Atrovent Neb 0.5mg/2.5ml) 0.5 mg HHN Q2HR PRN PRN Reason: Shortness of Breath or Wheeze Stop: 01/14/19 01:40 Lorazepam (Ativan) 1 mg PO Q6HR PRN; Protocol PRN Reason: Agitation Stop: 01/14/19 21:42 Last Admin: 11/16/18 13:33 Dose: 1 mg Pantoprazole Sodium (Protonix) 40 mg IVP DAILY [facility] Stop: 01/14/19 08:59 Last Admin: 11/16/18 09:54 Dose: 40 mg Pioglitazone HCl (Actos) 30 mg PO QDAC [facility] Stop: 01/14/19 07:29 Last Admin: 11/16/18 06:36 Dose: 30 mg Trazodone HCl (Desyrel) 50 mg PO HS [facility]; Protocol Stop: 01/14/19 20:59 Last Admin: 11/15/18 20:24 Dose: 50 mg Vitamin B Complex/Vit C/Folic Acid (Vitamin B Complex W/Vitamin C) 1 tab PO DAILY [facility] Stop: 01/14/19 08:59 Last Admin: 11/16/18 09:52 Dose: 1 tab Zinc Sulfate (Zinc Sulfate) 220 mg PO DAILY [facility] Stop: 01/14/19 08:59 Last Admin: 11/16/18 09:52 Dose: 220 mg General: Alert, Moderate distress HEENT: Atraumatic, Mucous membr. moist/pink Neck: Supple, +2 carotid pulse wo bruit Cardiovascular: Regular rate, Normal S1, Normal S2 Lungs: Clear to auscultation Abdomen: Bowel sounds, Soft Extremities: no Edema Neurological: Sensation intact Skin: no Rash Psych/Mental Status: Mood NL Assessment/Plan - Assessment Assessment: BARRY on CKD Lower abd pain Stool OB (+) Recurrent UTI T2DM w/ CKD Ess Htn W/ CKD Right LE Cellulitis Hx Uterinne CA S/P SABIHA Morbid Obese - Plan Plan: Lab - Result Diagrams 11/16/18 06:20 11/16/18 06:20 Current Medications Acetaminophen/Hydrocodone Bitart ([place] 5mg/325mg) 1 tab PO Q8H PRN PRN Reason: Pain (Severe) Stop: 01/14/19 21:40 Last Admin: 11/16/18 06:36 Dose: 1 tab Albuterol Sulfate (Albuterol 2.5mg/3ml Neb Ud) 2.5 mg HHN Q2H PRN PRN Reason: Shortness of Breath or Wheeze Stop: 01/14/19 01:40 Ascorbic Acid (Vitamin C) 500 mg PO BID [facility] Stop: 01/14/19 08:59 Last Admin: 11/16/18 17:29 Dose: 500 mg Atorvastatin Calcium (Lipitor) 10 mg PO HS [facility]; Protocol Stop: 01/14/19 20:59 Last Admin: 11/15/18 20:24 Dose: 10 mg Bupropion HCl (Wellbutrin Xl) 150 mg PO DAILY [facility]; Protocol Stop: 01/14/19 08:59 Last Admin: 11/16/18 09:54 Dose: 150 mg Buspirone HCl (Buspar) 20 mg PO BID [facility]; Protocol Stop: 01/14/19 08:59 Last Admin: 11/16/18 17:29 Dose: 20 mg Carvedilol (Coreg) 12.5 mg PO BIDWM [facility] Stop: 01/14/19 08:59 Last Admin: 11/16/18 08:00 Dose: Not Given Diltiazem HCl (Cardizem Cd) 120 mg PO DAILY [facility] Stop: 01/14/19 08:59 Last Admin: 11/16/18 09:53 Dose: 120 mg Duloxetine HCl (Cymbalta) 30 mg PO DAILY [facility]; Protocol Stop: 01/14/19 08:59 Last Admin: 11/16/18 09:52 Dose: 30 mg Epoetin Amaury (Epogen) 10,000 units SUBQ TuThSa [facility] Stop: 01/14/19 15:44 Last Admin: 11/16/18 10:03 Dose: 10,000 units Ferrous Sulfate (Iron) 325 mg PO BID [facility] Stop: 01/14/19 08:59 Last Admin: 11/16/18 17:29 Dose: 325 mg Gabapentin (Neurontin) 600 mg PO BID [facility] Stop: 01/14/19 08:59 Last Admin: 11/16/18 17:29 Dose: 600 mg Ceftriaxone Sodium 1 gm/ (Sodium Chloride) 50 mls @ 100 mls/hr IV Q24HR [facility] Stop: 01/14/19 10:14 Last Admin: 11/16/18 12:51 Dose: 100 mls/hr Sodium Chloride (Nacl 0.9%) 1,000 mls @ 100 mls/hr IV .Q10H [facility] Stop: 01/14/19 15:14 Last Admin: 11/16/18 17:21 Dose: 100 mls/hr Insulin Glargine (Lantus Insulin) 54 units SUBQ HS [facility] Stop: 01/14/19 20:59 Last Admin: 11/15/18 20:25 Dose: 54 units Insulin Human Lispro (Humalog Insulin Sliding Scale) 0 units SUBQ ACHS [facility]; Protocol Stop: 01/14/19 07:29 Last Admin: 11/16/18 17:28 Dose: 6 units Ipratropium [place] (Atrovent Neb 0.5mg/2.5ml) 0.5 mg HHN Q2HR PRN PRN Reason: Shortness of Breath or Wheeze Stop: 01/14/19 01:40 Lorazepam (Ativan) 1 mg PO Q6HR PRN; Protocol PRN Reason: Agitation Stop: 01/14/19 21:42 Last Admin: 11/16/18 13:33 Dose: 1 mg Pantoprazole Sodium (Protonix) 40 mg IVP DAILY [facility] Stop: 01/14/19 08:59 Last Admin: 11/16/18 09:54 Dose: 40 mg Pioglitazone HCl (Actos) 30 mg PO QDAC [facility] Stop: 01/14/19 07:29 Last Admin: 11/16/18 06:36 Dose: 30 mg Trazodone HCl (Desyrel) 50 mg PO HS [facility]; Protocol Stop: 01/14/19 20:59 Last Admin: 11/15/18 20:24 Dose: 50 mg Vitamin B Complex/Vit C/Folic Acid (Vitamin B Complex W/Vitamin C) 1 tab PO DAILY [facility] Stop: 01/14/19 08:59 Last Admin: 11/16/18 09:52 Dose: 1 tab Zinc Sulfate (Zinc Sulfate) 220 mg PO DAILY [facility] Stop: 01/14/19 08:59 Last Admin: 11/16/18 09:52 Dose: 220 mg Lab - Result Diagrams 11/16/18 06:20 11/16/18 06:20 Kidney fnc better w/ BUN/CR 107/1.2 replace K Stool for OB (+) f/u electrolytes, cbc Nutritional Asmnt/Malnutr-PDOC - Dietary Evaluation Malnutrition Findings (Please click <Entered> for more info): Nutritional Asmnt/Malnutrition Start: 11/15/18 12: 21 Text: Status: Complete Freq: Protocol: Document 11/15/18 12:21 MERCEDES (Rec: 11/15/18 12:35 MERCEDES BRUSH- [email or web address]) Nutritional Asmnt/Malnutrition Patient General Information Nutritional Screening High Risk Diagnosis UTI & Dehydration Pertinent Medical Hx/Surgical Hx HTN, CHF, COPD, acute renal failure, type 2 diabetes Subjective Information Patient was admitted from care home; on dialysis at time of visit. Patient crying. Current Diet Order/ Nutrition Support Cardiac Patient / S.O Not Indicated Pertinent Medications vitmain C, Lipitor, Iron, Lantus, Humalog, protonix, Vitamin B complex with C, zinc sulfate Pertinent Labs (11/14) Na 135, K 3.3, BUN 136, Cr 1.5, Mg 1.8, glucose 141- 200 Nutritional Hx/Data Height 1.7 m Height (Calculated Centimeters) 170.2 Current Weight (lbs) 164.2 kg Weight (Calculated Kilograms) 164.2 Weight (Calculated Grams) 473839.4 [place] Body Weight 148 % [place] Body Weight 244 Body Mass Index (BMI) 56.7 Recent Weight Change No Weight Status Morbidly Obese GI Symptoms GI Symptoms None Last BM none noted since admission Difficult in: None Food Allergies No Cultural/Ethnic/Faith Belief none indicated Usual diet at home unknown Skin Integrity/Comment: Harshal 14, skin tear Current %PO Good (75-100%) Estimated Nutritional Goals BEE in Kcals: Adj wt of IBW Calories/Kcals/Kg using Adj BW 91.5kg Kcals Calculated ~2401-7840 kcal/day Protein: Adj wt of IBW Protein g/k-1.2 gm/kg Protein Calculated 90-110 gm/day Fluid: ml ~1023-9439 ml/day (1 ml/kcal) Nutritional Problem 1. Problem Problem Altered nutrition related lab values related to Etiology electrolyte imbalance and hyperglycemia aeb Signs/Symptoms: Na 135, K 3.3, mg 1.8, glucose 141-200 Intervention/Recommendation Comments 1. Consider modifying diet to 60 gm CCHO. No need for renal diet at this time due to hypokalemia, no need for low potassium diet. Check phosphorus level to determine need for dietary phosphorus restriction. Current diet is low in sodium. Expected Outcomes/Goals Expected Outcomes/Goals Oral itnake >75% of meals, weight stable, nutrition related labs WNL F/U MR
[2018-11-16] MEDS: Potassium Chloride 20 mEq ER Tab PO SCH (18:38)
[2018-11-16] MEDS: Atorvastatin Calcium 10 MG TAB PO SCH (20:55)
[2018-11-16] MEDS: Insulin Glargine 100 units/ml 10ml Vial SUBQ SCH (21:05)
--- NOTE | 2018-11-17 01:36 | Consultation ---
DATE OF CONSULTATION: 11/16/[address] Manuel. HISTORY AND PHYSICAL: This is a 58-year-old female patient, who was brought to the hospital with abdominal pain. The patient had recent hysterectomy for uterine cancer. The patient also have radiation and chemotherapy, which the patient has not received yet. The patient has elevated BUN and hence the patient was brought to the hospital. PAST MEDICAL HISTORY: Uterine cancer, CKD stage 3 secondary to diabetes, diabetic mellitus type 2, hypertension, right leg cellulitis, angina, obesity, iron deficiency anemia, major depression, congenital horseshoe kidney. FAMILY HISTORY: Unremarkable. SOCIAL HISTORY: No history of smoking or alcohol abuse. ALLERGIES: None. PHYSICAL EXAMINATION: VITAL SIGNS: Blood pressure 120/80; pulse 80, regular; respirations 28. HEAD: Normocephalic. No lumps or bumps. EYES: Pupils equal, reactive to light. Fundi show AV nicking, sclerae white, conjunctivae pink. NECK: Carotid 2+. Normal upstroke. JVD flat. Thyroid not palpable. Lymph nodes not palpable. CHEST: Shows increased AP diameter. No kyphosis or scoliosis. LUNGS: Bilateral bronchovesicular breath sounds. HEART: PMI fifth intercostal space with lateral to midclavicular line. S1, S2, S3, S4, soft systolic murmur. ABDOMEN: Soft. There is mild tenderness. No rebound tenderness. Bowel sounds active. NEUROLOGIC: No focal neurological deficit. EXTREMITIES: Peripheral pulses 2+. No pedal edema. CLINICAL IMPRESSION: Right leg cellulitis, uterine cancer, diabetes mellitus type 2, diabetic chronic kidney disease stage 3, hypertension, angina, obesity, iron deficiency anemia, major depression, congenital horseshoe kidney bilateral, gastrointestinal bleed with stool for occult blood positive, iron deficiency anemia. PLAN: The patient to continue present care. Have renal consult. Monitor the patient closely. JOB# [id number]
[2018-11-17 06:36] LABS: % BASOPHILS 0.7 % (0.0-2.0); % EOSINOPHILS 3.8 % (0.0-5.0); % LYMPHOCYTES 18.1 % (20.0-50.0); % NEUTROPHILS 66.4 % (40.0-80.0); EOSINOPHILE ABSOLUTE 0.2 Th/cmm (0.1-0.4); HEMATOCRIT 28.8 % (41.0-60); HEMOGLOBIN 9.7 gm/dL (12-16); LYMPHOCYTE ABSOLUTE 0.9 Th/cmm (1.5-3.0); MEAN CELL VOLUME 88.2 fl (81-100); MEAN CORPUSCULAR HEMOGLOBIN 29.6 pg (27.0-31.0); MEAN CORPUSCULAR HGB CONC 33.6 pg (28.0-36.0); MEAN PLATELET VOLUME 8.8 fl; MONOCYTE ABSOLUTE 0.5 Th/cmm (0.3-1.0); NEUTROPHILE ABSOLUTE 3.2 Th/cmm (1.8-8.0); PLATELET COUNT 234 Th/cmm (150-400); RED BLOOD COUNT 3.26 Mil/cmm (3.80-5.10); RED CELL DISTRIBUTION WIDTH 15.2 % (11.5-20.0); WHITE BLOOD COUNT 4.8 Th/cmm (4.8-10.8)
[2018-11-17 06:48] LABS: ANION GAP 10.2 (7.0-16.0); CALCIUM SERUM 8.8 mg/dL (8.6-10.3); CARBON DIOXIDE 28.3 mEq/L (21.0-31.0); CHLORIDE 101 mEq/L (98-107); GFR AFRICAN-AMERICAN > 60.0 ml/min (>90); GFR NON AFRICAN-AMERICAN > 60.0 ml/min; GLUCOSE 196 mg/dL (70-105); POTASSIUM SERUM 3.5 mEq/L (3.5-5.1); SODIUM SERUM 136 mEq/L (136-145)
[2018-11-17 07:06] LABS: BUN - UREA NITROGEN 82 mg/dL (7-25)
[2018-11-17] MEDS: INSULIN LISPRO SLIDING SCALE 100 UNITS/ML UNIT SUBQ SCH ×4 (07:32→20:14)
--- NOTE | 2018-11-17 08:59 | Diagnostic Imaging Report ---
KUB single view HISTORY: Constipation COMPARISON: None FINDINGS: Exam is in the body habitus. Moderate stool is seen with mild distal fecal impaction. General gas-filled bowel are noted. 3 mm metallic density seen projecting along the rectal region. An IVC filter is seen at the L1/L2 level. No gross free air. IMPRESSION: Moderate generalized stool with mild distal fecal impaction. 3 mm metallic density projecting along the rectal region, nonspecific. IVC filter.
--- NOTE | 2018-11-17 09:05 | Diagnostic Imaging Report ---
Ultrasound pelvis, limited History: Acute renal failure. Provided history of complete hysterectomy. Technique: Sonography of the pelvis is performed in multiple planes. The uterus and ovaries are not visualized compatible with previous total hysterectomy. The urinary bladder is underdistended measuring 92 mL's. The urinary bladder wall measures 5 mm. IMPRESSION: Underdistended urinary bladder measuring 92 mL, correlate clinically. Mild prominence of the urinary bladder wall which may be accentuated by underdistention. Please correlate clinically. The uterus and ovaries are not visualized compatible with provided history of total hysterectomy.
[2018-11-17] MEDS: buPROPion XL 150 mg T 24 H PO SCH (09:38)
[2018-11-17] MEDS: cefTRIAXone 1 GM in Sodium Chloride 0.9% 50 ML IV SCH (09:38)
[2018-11-17] MEDS: Ferrous Sulfate 325 MG TAB PO SCH ×2 (09:39→17:44)
[2018-11-17] MEDS: Diltiazem CD 120 mg 24H PO SCH (09:39)
[2018-11-17] MEDS: Vitamin B Complex w/Vitamin C Tab PO SCH (09:40)
[2018-11-17] MEDS: Potassium Chloride 20 mEq ER Tab PO SCH (09:40)
--- NOTE | 2018-11-17 09:59 | Diagnostic Imaging Report ---
Ultrasound abdomen HISTORY: Abdominal pain COMPARISON: None Technique: Sonography of the abdomen was performed in multiple planes. FINDINGS: Exam is markedly limited due to bowel gas and body habitus. The liver demonstrates normal echogenicity. The liver margins are not well visualized limiting assessment for focal lesions. The liver measures 21.5 cm. The IVC measures 2.8 cm. There is suboptimal assessment of the gallbladder. No patient refused left lateral decubitus views. The common bile duct measures 3 mm. Evaluation of the pancreas is limited due to bowel gas. The right kidney measures 9.4 x 4.9 cm.The left kidney measures 12.0 x 6.7 cm. No evidence of hydronephrosis. Note assessment for focal lesions is limited due to body habitus. The spleen 10.6 cm. The visualized portions of the abdominal aorta within normal limits in size. IMPRESSION: Limited exam due to bowel gas and body habitus. Hepatomegaly. Mild prominence of the IVC measuring 2.8 cm. The significance of this finding should be correlated clinically. Suboptimal assessment of the gallbladder. No patient refused left lateral decubitus views. No gross gallstones however, consider additional short-term follow-up assessment if indicated No hydronephrosis.
[2018-11-17] MEDS: Hydrocodone/APAP 5mg/325mg Tab PO PRN ×2 (10:01→18:39)
--- NOTE | 2018-11-17 13:05 | General Progress Note ---
Subjective - Review of Systems Service Date: 11/17/18 Subjective: Patient has no complaint of chest pain shortness of breath abdominal pain Objective - Results Result Diagrams: 11/17/18 05:50 11/17/18 05:50 Recent Labs: Laboratory Last Values WBC 4.8 Th/cmm (4.8-10.8) 11/17/18 05:50 RBC 3.26 Mil/cmm (3.80-5.10) L 11/17/18 05:50 Hgb 9.7 gm/dL (12-16) L 11/17/18 05:50 Hct 28.8 % (41.0-60) L 11/17/18 05:50 MCV 88.2 fl (81-100) 11/17/18 05:50 MCH 29.6 pg (27.0-31.0) 11/17/18 05:50 MCHC Differential 33.6 pg (28.0-36.0) 11/17/18 05:50 RDW 15.2 % (11.5-20.0) 11/17/18 05:50 Plt Count 234 Th/cmm (150-400) 11/17/18 05:50 MPV 8.8 fl 11/17/18 05:50 Neutrophils % 66.4 % (40.0-80.0) 11/17/18 05:50 Lymphocytes % 18.1 % (20.0-50.0) L 11/17/18 05:50 Monocytes % 11.0 % (2.0-10.0) H 11/17/18 05:50 Eosinophils % 3.8 % (0.0-5.0) 11/17/18 05:50 Basophils % 0.7 % (0.0-2.0) 11/17/18 05:50 Eos Smear Source URINE 11/15/18 21:30 Eos Smear Total Cells NONE SEEN (NONE SEEN) 11/15/18 21:30 PT 11.0 SECONDS (9.5-11.5) 11/14/18 21:10 INR 1.06 (0.5-1.4) 11/14/18 21:10 PTT (Actin FS) 32.2 SECONDS (26.0-38.0) 11/14/18 21:10 Sodium 136 mEq/L (136-145) 11/17/18 05:50 Potassium 3.5 mEq/L (3.5-5.1) 11/17/18 05:50 Chloride 101 mEq/L (98-107) 11/17/18 05:50 Carbon Dioxide 28.3 mEq/L (21.0-31.0) 11/17/18 05:50 Anion Gap 10.2 (7.0-16.0) 11/17/18 05:50 BUN 82 mg/dL (7-25) H* 11/17/18 05:50 Creatinine 1.0 mg/dL (0.6-1.2) 11/17/18 05:50 Est GFR ( Amer) > 60.0 ml/min (>90) 11/17/18 05:50 Est GFR (Non-Af Amer) > 60.0 ml/min 11/17/18 05:50 BUN/Creatinine Ratio 82.0 11/17/18 05:50 Glucose 196 mg/dL (70-105) H 11/17/18 05:50 POC Glucose 199 MG/DL (70 - 105) H 11/17/18 12:44 Uric Acid 8.8 mg/dL (2.3-6.6) H 11/16/18 06:20 Calcium 8.8 mg/dL (8.6-10.3) 11/17/18 05:50 Phosphorus 2.9 mg/dL (2.5-5.0) 11/16/18 06:20 Magnesium 2.2 mg/dL (1.9-2.7) 11/16/18 06:20 B-Natriuretic Peptide 76.2 pg/mL (5.0-100.0) 11/14/18 21:10 TSH 2.40 uIU/ml (0.34-5.60) 11/14/18 21:10 Urine Source [place] 11/14/18 21:40 Urine Color YELLOW 11/14/18 21:40 Urine Clarity CLOUDY (CLEAR) H 11/14/18 21:40 Urine pH 6.0 (4.6 - 8.0) 11/14/18 21:40 Ur Specific [place] 1.015 (1.005-1.030) 11/14/18 21:40 Urine Protein 100 mg/dL (NEGATIVE) H 11/14/18 21:40 Urine Glucose (UA) NEGATIVE mg/dL (NEGATIVE) 11/14/18 21:40 Urine Ketones NEGATIVE mg/dL (NEGATIVE) 11/14/18 21:40 Urine Blood LARGE (NEGATIVE) H 11/14/18 21:40 Urine Nitrate NEGATIVE (NEGATIVE) 11/14/18 21:40 Urine Bilirubin NEGATIVE (NEGATIVE) 11/14/18 21:40 Urine Urobilinogen 0.2 E.U./dL (0.2 - 1.0) 11/14/18 21:40 Ur Leukocyte Esterase MODERATE (NEGATIVE) H 11/14/18 21:40 Urine RBC 5-10 /hpf (0-5) H 11/14/18 21:40 Urine WBC 25-50 /hpf (0-5) H 11/14/18 21:40 Ur Epithelial Cells FEW /lpf (FEW) 11/14/18 21:40 Urine Bacteria MANY /hpf (NONE SEEN) H 11/14/18 21:40 Urine Creatinine 35.0 mg/dl (28.0-217.0) 11/15/18 21:30 Microalb/Creat Ratio 305.9 mg/g creat (0.0-30.0) H 11/15/18 21:30 Stool Occult Blood POSITIVE (NEGATIVE) H 11/16/18 19:00 - Physical Exam Vitals and I&O: Vital Signs Temp 97.9 F 11/17/18 11:25 Pulse 66 11/17/18 11:25 Resp 18 11/17/18 11:25 BP 124/48 11/17/18 11:25 Pulse Ox 96 11/17/18 11:25 Intake & Output 11/16/18 11/17/18 11/17/18 18:59 06:59 18:59 Intake Total 1290 Balance 1290 Weight (lbs) 164.2 kg Intake: Intake, IV Amount 1050 Sodium Chloride 0.9% 1, 1000 000 ml @ 100 mls/hr IV . Q10H [facility] Rx#:[id number] cefTRIAXone 1 gm In 50 Sodium Chloride 0.9% 50 ml @ 100 mls/hr IV Q24HR [facility] Rx#:[id number] Oral 240 Other: Stool Characteristics Soft Soft Weight Source Bedscale Active Medications: Current Medications Acetaminophen/Hydrocodone Bitart ([place] 5mg/325mg) 1 tab PO Q8H PRN PRN Reason: Pain (Severe) Stop: 01/14/19 21:40 Last Admin: 11/17/18 10:01 Dose: 1 tab Albuterol Sulfate (Albuterol 2.5mg/3ml Neb Ud) 2.5 mg HHN Q2H PRN PRN Reason: Shortness of Breath or Wheeze Stop: 01/14/19 01:40 Ascorbic Acid (Vitamin C) 500 mg PO BID COUNTS INCLUDE 234 BEDS AT THE [facility] Stop: 01/14/19 08:59 Last Admin: 11/17/18 09:39 Dose: 500 mg Atorvastatin Calcium (Lipitor) 10 mg PO HS COUNTS INCLUDE 234 BEDS AT THE [facility]; Protocol Stop: 01/14/19 20:59 Last Admin: 11/16/18 20:55 Dose: 10 mg Bupropion HCl (Wellbutrin Xl) 150 mg PO DAILY COUNTS INCLUDE 234 BEDS AT THE [facility]; Protocol Stop: 01/14/19 08:59 Last Admin: 11/17/18 09:38 Dose: 150 mg Buspirone HCl (Buspar) 20 mg PO BID COUNTS INCLUDE 234 BEDS AT THE [facility]; Protocol Stop: 01/14/19 08:59 Last Admin: 11/17/18 09:39 Dose: 20 mg Carvedilol (Coreg) 12.5 mg PO BIDWM COUNTS INCLUDE 234 BEDS AT THE [facility] Stop: 01/14/19 08:59 Last Admin: 11/17/18 08:09 Dose: Not Given Diltiazem HCl (Cardizem Cd) 120 mg PO DAILY COUNTS INCLUDE 234 BEDS AT THE [facility] Stop: 01/14/19 08:59 Last Admin: 11/17/18 09:39 Dose: 120 mg Duloxetine HCl (Cymbalta) 30 mg PO DAILY COUNTS INCLUDE 234 BEDS AT THE [facility]; Protocol Stop: 01/14/19 08:59 Last Admin: 11/17/18 09:39 Dose: 30 mg Epoetin Amaury (Epogen) 10,000 units SUBQ TuThSa COUNTS INCLUDE 234 BEDS AT THE [facility] Stop: 01/14/19 15:44 Last Admin: 11/16/18 10:03 Dose: 10,000 units Ferrous Sulfate (Iron) 325 mg PO BID COUNTS INCLUDE 234 BEDS AT THE [facility] Stop: 01/14/19 08:59 Last Admin: 11/17/18 09:39 Dose: 325 mg Gabapentin (Neurontin) 600 mg PO BID COUNTS INCLUDE 234 BEDS AT THE [facility] Stop: 01/14/19 08:59 Last Admin: 11/17/18 09:39 Dose: 600 mg Ceftriaxone Sodium 1 gm/ (Sodium Chloride) 50 mls @ 100 mls/hr IV Q24HR COUNTS INCLUDE 234 BEDS AT THE [facility] Stop: 01/14/19 10:14 Last Admin: 11/17/18 09:38 Dose: 100 mls/hr Sodium Chloride (Nacl 0.9%) 1,000 mls @ 100 mls/hr IV .Q10H COUNTS INCLUDE 234 BEDS AT THE [facility] Stop: 01/14/19 15:14 Last Admin: 11/16/18 17:21 Dose: 100 mls/hr Insulin Glargine (Lantus Insulin) 54 units SUBQ HS [facility] Stop: 01/14/19 20:59 Last Admin: 11/16/18 21:05 Dose: Not Given Insulin Human Lispro (Humalog Insulin Sliding Scale) 0 units SUBQ ACHS COUNTS INCLUDE 234 BEDS AT THE [facility]; Protocol Stop: 01/14/19 07:29 Last Admin: 11/17/18 12:47 Dose: 3 units Ipratropium [place] (Atrovent Neb 0.5mg/2.5ml) 0.5 mg HHN Q2HR PRN PRN Reason: Shortness of Breath or Wheeze Stop: 01/14/19 01:40 Lorazepam (Ativan) 1 mg PO Q6HR PRN; Protocol PRN Reason: Agitation Stop: 01/14/19 21:42 Last Admin: 11/17/18 10:00 Dose: 1 mg Pantoprazole Sodium (Protonix) 40 mg IVP DAILY [facility] Stop: 01/14/19 08:59 Last Admin: 11/17/18 09:39 Dose: 40 mg Pioglitazone HCl (Actos) 30 mg PO QDAC COUNTS INCLUDE 234 BEDS AT THE [facility] Stop: 01/14/19 07:29 Last Admin: 11/17/18 06:35 Dose: Not Given Potassium Chloride (Klor-Con) 20 meq PO DAILY COUNTS INCLUDE 234 BEDS AT THE [facility] Stop: 01/15/19 17:59 Last Admin: 11/17/18 09:40 Dose: 20 meq Trazodone HCl (Desyrel) 50 mg PO HS COUNTS INCLUDE 234 BEDS AT THE [facility]; Protocol Stop: 01/14/19 20:59 Last Admin: 11/16/18 20:55 Dose: 50 mg Vitamin B Complex/Vit C/Folic Acid (Vitamin B Complex W/Vitamin C) 1 tab PO DAILY COUNTS INCLUDE 234 BEDS AT THE [facility] Stop: 01/14/19 08:59 Last Admin: 11/17/18 09:40 Dose: 1 tab Zinc Sulfate (Zinc Sulfate) 220 mg PO DAILY [facility] Stop: 01/14/19 08:59 Last Admin: 11/17/18 09:40 Dose: 220 mg General: Alert, Moderate distress HEENT: Atraumatic, Mucous membr. moist/pink Neck: Supple, +2 carotid pulse wo bruit Cardiovascular: Regular rate, Normal S1, Normal S2 Lungs: Clear to auscultation Abdomen: Bowel sounds, Soft Extremities: no Edema Neurological: Sensation intact Skin: no Rash Psych/Mental Status: Mood NL Assessment/Plan - Assessment Assessment: Uterine cancer Right leg cellulitis Diabetes mellitus type 2 Diabetic security stage III Major depression GI bleed with anemia stool for occult blood positive Angina stable Obesity iron deficiency anemia Congenital horseshoe kidney bilateral - Plan Plan: Patient to continue present management and awaiting GI evaluation Nutritional Asmnt/Malnutr-PDOC - Dietary Evaluation Malnutrition Findings (Please click <Entered> for more info): Nutritional Asmnt/Malnutrition Start: 11/15/18 12: 21 Text: Status: Complete Freq: Protocol: Document 11/15/18 12:21 [email or web address] (Rec: 11/15/18 12:35 [email or web address] TRUDI- [id number]) Nutritional Asmnt/Malnutrition Patient General Information Nutritional Screening High Risk Diagnosis UTI & Dehydration Pertinent Medical Hx/Surgical Hx HTN, CHF, COPD, acute renal failure, type 2 diabetes Subjective Information Patient was admitted from group home; on dialysis at time of visit. Patient crying. Current Diet Order/ Nutrition Support Cardiac Patient / S.O Not Indicated Pertinent Medications vitmain C, Lipitor, Iron, Lantus, Humalog, protonix, Vitamin B complex with C, zinc sulfate Pertinent Labs (11/14) Na 135, K 3.3, BUN 136, Cr 1.5, Mg 1.8, glucose 141- 200 Nutritional Hx/Data Height 1.7 m Height (Calculated Centimeters) 170.2 Current Weight (lbs) 164.2 kg Weight (Calculated Kilograms) 164.2 Weight (Calculated Grams) 211706.4 [place] Body Weight 148 % [place] Body Weight 244 Body Mass Index (BMI) 56.7 Recent Weight Change No Weight Status Morbidly Obese GI Symptoms GI Symptoms None Last BM none noted since admission Difficult in: None Food Allergies No Cultural/Ethnic/Jain Belief none indicated Usual diet at home unknown Skin Integrity/Comment: [place] 14, skin tear Current %PO Good (75-100%) Estimated Nutritional Goals BEE in Kcals: Adj wt of IBW Calories/Kcals/Kg using Adj BW 91.5kg Kcals Calculated ~8725-9803 kcal/day Protein: Adj wt of IBW Protein g/k-1.2 gm/kg Protein Calculated 90-110 gm/day Fluid: ml ~5408-4149 ml/day (1 ml/kcal) Nutritional Problem 1. Problem Problem Altered nutrition related lab values related to Etiology electrolyte imbalance and hyperglycemia aeb Signs/Symptoms: Na 135, K 3.3, mg 1.8, glucose 141-200 Intervention/Recommendation Comments 1. Consider modifying diet to 60 gm CCHO. No need for renal diet at this time due to hypokalemia, no need for low potassium diet. Check phosphorus level to determine need for dietary phosphorus restriction. Current diet is low in sodium. Expected Outcomes/Goals Expected Outcomes/Goals Oral itnake >75% of meals, weight stable, nutrition related labs WNL F/U MR 11/18-
--- NOTE | 2018-11-17 14:18 | General Progress Note ---
Subjective - Review of Systems Service Date: 11/17/18 Subjective: alert, less lower abd pain Objective - Results Result Diagrams: 11/17/18 05:50 11/17/18 05:50 Recent Labs: Laboratory Last Values WBC 4.8 Th/cmm (4.8-10.8) 11/17/18 05:50 RBC 3.26 Mil/cmm (3.80-5.10) L 11/17/18 05:50 Hgb 9.7 gm/dL (12-16) L 11/17/18 05:50 Hct 28.8 % (41.0-60) L 11/17/18 05:50 MCV 88.2 fl (81-100) 11/17/18 05:50 MCH 29.6 pg (27.0-31.0) 11/17/18 05:50 MCHC Differential 33.6 pg (28.0-36.0) 11/17/18 05:50 RDW 15.2 % (11.5-20.0) 11/17/18 05:50 Plt Count 234 Th/cmm (150-400) 11/17/18 05:50 MPV 8.8 fl 11/17/18 05:50 Neutrophils % 66.4 % (40.0-80.0) 11/17/18 05:50 Lymphocytes % 18.1 % (20.0-50.0) L 11/17/18 05:50 Monocytes % 11.0 % (2.0-10.0) H 11/17/18 05:50 Eosinophils % 3.8 % (0.0-5.0) 11/17/18 05:50 Basophils % 0.7 % (0.0-2.0) 11/17/18 05:50 Eos Smear Source URINE 11/15/18 21:30 Eos Smear Total Cells NONE SEEN (NONE SEEN) 11/15/18 21:30 PT 11.0 SECONDS (9.5-11.5) 11/14/18 21:10 INR 1.06 (0.5-1.4) 11/14/18 21:10 PTT (Actin FS) 32.2 SECONDS (26.0-38.0) 11/14/18 21:10 Sodium 136 mEq/L (136-145) 11/17/18 05:50 Potassium 3.5 mEq/L (3.5-5.1) 11/17/18 05:50 Chloride 101 mEq/L (98-107) 11/17/18 05:50 Carbon Dioxide 28.3 mEq/L (21.0-31.0) 11/17/18 05:50 Anion Gap 10.2 (7.0-16.0) 11/17/18 05:50 BUN 82 mg/dL (7-25) H* 11/17/18 05:50 Creatinine 1.0 mg/dL (0.6-1.2) 11/17/18 05:50 Est GFR ( Amer) > 60.0 ml/min (>90) 11/17/18 05:50 Est GFR (Non-Af Amer) > 60.0 ml/min 11/17/18 05:50 BUN/Creatinine Ratio 82.0 11/17/18 05:50 Glucose 196 mg/dL (70-105) H 11/17/18 05:50 POC Glucose 199 MG/DL (70 - 105) H 11/17/18 12:44 Uric Acid 8.8 mg/dL (2.3-6.6) H 11/16/18 06:20 Calcium 8.8 mg/dL (8.6-10.3) 11/17/18 05:50 Phosphorus 2.9 mg/dL (2.5-5.0) 11/16/18 06:20 Magnesium 2.2 mg/dL (1.9-2.7) 11/16/18 06:20 B-Natriuretic Peptide 76.2 pg/mL (5.0-100.0) 11/14/18 21:10 TSH 2.40 uIU/ml (0.34-5.60) 11/14/18 21:10 Urine Source [place] 11/14/18 21:40 Urine Color YELLOW 11/14/18 21:40 Urine Clarity CLOUDY (CLEAR) H 11/14/18 21:40 Urine pH 6.0 (4.6 - 8.0) 11/14/18 21:40 Ur Specific [place] 1.015 (1.005-1.030) 11/14/18 21:40 Urine Protein 100 mg/dL (NEGATIVE) H 11/14/18 21:40 Urine Glucose (UA) NEGATIVE mg/dL (NEGATIVE) 11/14/18 21:40 Urine Ketones NEGATIVE mg/dL (NEGATIVE) 11/14/18 21:40 Urine Blood LARGE (NEGATIVE) H 11/14/18 21:40 Urine Nitrate NEGATIVE (NEGATIVE) 11/14/18 21:40 Urine Bilirubin NEGATIVE (NEGATIVE) 11/14/18 21:40 Urine Urobilinogen 0.2 E.U./dL (0.2 - 1.0) 11/14/18 21:40 Ur Leukocyte Esterase MODERATE (NEGATIVE) H 11/14/18 21:40 Urine RBC 5-10 /hpf (0-5) H 11/14/18 21:40 Urine WBC 25-50 /hpf (0-5) H 11/14/18 21:40 Ur Epithelial Cells FEW /lpf (FEW) 11/14/18 21:40 Urine Bacteria MANY /hpf (NONE SEEN) H 11/14/18 21:40 Urine Creatinine 35.0 mg/dl (28.0-217.0) 11/15/18 21:30 Microalb/Creat Ratio 305.9 mg/g creat (0.0-30.0) H 11/15/18 21:30 Stool Occult Blood POSITIVE (NEGATIVE) H 11/16/18 19:00 - Physical Exam Vitals and I&O: Vital Signs Temp 97.9 F 11/17/18 11:25 Pulse 66 11/17/18 11:25 Resp 18 11/17/18 11:25 BP 124/48 11/17/18 11:25 Pulse Ox 96 11/17/18 11:25 Intake & Output 11/16/18 11/17/18 11/17/18 18:59 06:59 18:59 Intake Total 1290 Balance 1290 Weight (lbs) 164.2 kg Intake: Intake, IV Amount 1050 Sodium Chloride 0.9% 1, 1000 000 ml @ 100 mls/hr IV . Q10H [facility] Rx#:[id number] cefTRIAXone 1 gm In 50 Sodium Chloride 0.9% 50 ml @ 100 mls/hr IV Q24HR [facility] Rx#:[id number] Oral 240 Other: Stool Characteristics Soft Soft Soft Weight Source Bedscale Active Medications: Current Medications Acetaminophen/Hydrocodone Bitart ([place] 5mg/325mg) 1 tab PO Q8H PRN PRN Reason: Pain (Severe) Stop: 01/14/19 21:40 Last Admin: 04/22/19 10:01 Dose: 1 tab Albuterol Sulfate (Albuterol 2.5mg/3ml Neb Ud) 2.5 mg HHN Q2H PRN PRN Reason: Shortness of Breath or Wheeze Stop: 01/14/19 01:40 Ascorbic Acid (Vitamin C) 500 mg PO BID [facility] Stop: 01/14/19 08:59 Last Admin: 11/17/18 09:39 Dose: 500 mg Atorvastatin Calcium (Lipitor) 10 mg PO HS [facility]; Protocol Stop: 01/14/19 20:59 Last Admin: 11/16/18 20:55 Dose: 10 mg Bupropion HCl (Wellbutrin Xl) 150 mg PO DAILY [facility]; Protocol Stop: 01/14/19 08:59 Last Admin: 11/17/18 09:38 Dose: 150 mg Buspirone HCl (Buspar) 20 mg PO BID [facility]; Protocol Stop: 01/14/19 08:59 Last Admin: 11/17/18 09:39 Dose: 20 mg Carvedilol (Coreg) 12.5 mg PO BIDWM [facility] Stop: 01/14/19 08:59 Last Admin: 11/17/18 08:09 Dose: Not Given Diltiazem HCl (Cardizem Cd) 120 mg PO DAILY [facility] Stop: 01/14/19 08:59 Last Admin: 11/17/18 09:39 Dose: 120 mg Duloxetine HCl (Cymbalta) 30 mg PO DAILY [facility]; Protocol Stop: 01/14/19 08:59 Last Admin: 11/17/18 09:39 Dose: 30 mg Epoetin Amaury (Epogen) 10,000 units SUBQ TuThSa [facility] Stop: 01/14/19 15:44 Last Admin: 11/16/18 10:03 Dose: 10,000 units Ferrous Sulfate (Iron) 325 mg PO BID [facility] Stop: 01/14/19 08:59 Last Admin: 11/17/18 09:39 Dose: 325 mg Gabapentin (Neurontin) 600 mg PO BID [facility] Stop: 01/14/19 08:59 Last Admin: 11/17/18 09:39 Dose: 600 mg Ceftriaxone Sodium 1 gm/ (Sodium Chloride) 50 mls @ 100 mls/hr IV Q24HR [facility] Stop: 01/14/19 10:14 Last Admin: 11/17/18 09:38 Dose: 100 mls/hr Sodium Chloride (Nacl 0.9%) 1,000 mls @ 100 mls/hr IV .Q10H [facility] Stop: 01/14/19 15:14 Last Admin: 11/16/18 17:21 Dose: 100 mls/hr Insulin Glargine (Lantus Insulin) 54 units SUBQ HS [facility] Stop: 01/14/19 20:59 Last Admin: 11/16/18 21:05 Dose: Not Given Insulin Human Lispro (Humalog Insulin Sliding Scale) 0 units SUBQ ACHS [facility]; Protocol Stop: 01/14/19 07:29 Last Admin: 11/17/18 12:47 Dose: 3 units Ipratropium [place] (Atrovent Neb 0.5mg/2.5ml) 0.5 mg HHN Q2HR PRN PRN Reason: Shortness of Breath or Wheeze Stop: 01/14/19 01:40 Lorazepam (Ativan) 1 mg PO Q6HR PRN; Protocol PRN Reason: Agitation Stop: 01/14/19 21:42 Last Admin: 11/17/18 10:00 Dose: 1 mg Pantoprazole Sodium (Protonix) 40 mg IVP DAILY [facility] Stop: 01/14/19 08:59 Last Admin: 11/17/18 09:39 Dose: 40 mg Pioglitazone HCl (Actos) 30 mg PO QDAC [facility] Stop: 01/14/19 07:29 Last Admin: 11/17/18 06:35 Dose: Not Given Potassium Chloride (Klor-Con) 20 meq PO DAILY [facility] Stop: 01/15/19 17:59 Last Admin: 11/17/18 09:40 Dose: 20 meq Trazodone HCl (Desyrel) 50 mg PO HS [facility]; Protocol Stop: 01/14/19 20:59 Last Admin: 11/16/18 20:55 Dose: 50 mg Vitamin B Complex/Vit C/Folic Acid (Vitamin B Complex W/Vitamin C) 1 tab PO DAILY [facility] Stop: 01/14/19 08:59 Last Admin: 11/17/18 09:40 Dose: 1 tab Zinc Sulfate (Zinc Sulfate) 220 mg PO DAILY [facility] Stop: 01/14/19 08:59 Last Admin: 11/17/18 09:40 Dose: 220 mg General: Alert, Moderate distress HEENT: Atraumatic, Mucous membr. moist/pink Neck: Supple, +2 carotid pulse wo bruit Cardiovascular: Regular rate, Normal S1, Normal S2 Lungs: Clear to auscultation Abdomen: Bowel sounds, Soft Extremities: no Edema Neurological: Sensation intact Skin: no Rash Psych/Mental Status: Mood NL Assessment/Plan - Assessment Assessment: BARRY on CKD Lower abd pain Stool OB (+) Recurrent UTI T2DM w/ CKD Ess Htn W/ CKD Right LE Cellulitis Hx Uterinne CA S/P SABIHA Morbid Obese Fecal Impaction - Plan Plan: Lab - Result Diagrams 11/16/18 06:20 11/16/18 06:20 Current Medications Acetaminophen/Hydrocodone Bitart ([place] 5mg/325mg) 1 tab PO Q8H PRN PRN Reason: Pain (Severe) Stop: 01/14/19 21:40 Last Admin: 11/16/18 06:36 Dose: 1 tab Albuterol Sulfate (Albuterol 2.5mg/3ml Neb Ud) 2.5 mg HHN Q2H PRN PRN Reason: Shortness of Breath or Wheeze Stop: 01/14/19 01:40 Ascorbic Acid (Vitamin C) 500 mg PO BID [facility] Stop: 01/14/19 08:59 Last Admin: 11/16/18 17:29 Dose: 500 mg Atorvastatin Calcium (Lipitor) 10 mg PO HS [facility]; Protocol Stop: 01/14/19 20:59 Last Admin: 11/15/18 20:24 Dose: 10 mg Bupropion HCl (Wellbutrin Xl) 150 mg PO DAILY [facility]; Protocol Stop: 01/14/19 08:59 Last Admin: 11/16/18 09:54 Dose: 150 mg Buspirone HCl (Buspar) 20 mg PO BID [facility]; Protocol Stop: 01/14/19 08:59 Last Admin: 11/16/18 17:29 Dose: 20 mg Carvedilol (Coreg) 12.5 mg PO BIDWM [facility] Stop: 01/14/19 08:59 Last Admin: 11/16/18 08:00 Dose: Not Given Diltiazem HCl (Cardizem Cd) 120 mg PO DAILY [facility] Stop: 01/14/19 08:59 Last Admin: 11/16/18 09:53 Dose: 120 mg Duloxetine HCl (Cymbalta) 30 mg PO DAILY [facility]; Protocol Stop: 01/14/19 08:59 Last Admin: 11/16/18 09:52 Dose: 30 mg Epoetin Amaury (Epogen) 10,000 units SUBQ TuThSa [facility] Stop: 01/14/19 15:44 Last Admin: 11/16/18 10:03 Dose: 10,000 units Ferrous Sulfate (Iron) 325 mg PO BID [facility] Stop: 01/14/19 08:59 Last Admin: 11/16/18 17:29 Dose: 325 mg Gabapentin (Neurontin) 600 mg PO BID [facility] Stop: 01/14/19 08:59 Last Admin: 11/16/18 17:29 Dose: 600 mg Ceftriaxone Sodium 1 gm/ (Sodium Chloride) 50 mls @ 100 mls/hr IV Q24HR [facility] Stop: 01/14/19 10:14 Last Admin: 11/16/18 12:51 Dose: 100 mls/hr Sodium Chloride (Nacl 0.9%) 1,000 mls @ 100 mls/hr IV .Q10H [facility] Stop: 01/14/19 15:14 Last Admin: 11/16/18 17:21 Dose: 100 mls/hr Insulin Glargine (Lantus Insulin) 54 units SUBQ HS [facility] Stop: 01/14/19 20:59 Last Admin: 11/15/18 20:25 Dose: 54 units Insulin Human Lispro (Humalog Insulin Sliding Scale) 0 units SUBQ ACHS [facility]; Protocol Stop: 01/14/19 07:29 Last Admin: 11/16/18 17:28 Dose: 6 units Ipratropium [place] (Atrovent Neb 0.5mg/2.5ml) 0.5 mg HHN Q2HR PRN PRN Reason: Shortness of Breath or Wheeze Stop: 01/14/19 01:40 Lorazepam (Ativan) 1 mg PO Q6HR PRN; Protocol PRN Reason: Agitation Stop: 01/14/19 21:42 Last Admin: 11/16/18 13:33 Dose: 1 mg Pantoprazole Sodium (Protonix) 40 mg IVP DAILY [facility] Stop: 01/14/19 08:59 Last Admin: 11/16/18 09:54 Dose: 40 mg Pioglitazone HCl (Actos) 30 mg PO QDAC [facility] Stop: 01/14/19 07:29 Last Admin: 11/16/18 06:36 Dose: 30 mg Trazodone HCl (Desyrel) 50 mg PO HS [facility]; Protocol Stop: 01/14/19 20:59 Last Admin: 11/15/18 20:24 Dose: 50 mg Vitamin B Complex/Vit C/Folic Acid (Vitamin B Complex W/Vitamin C) 1 tab PO DAILY [facility] Stop: 01/14/19 08:59 Last Admin: 11/16/18 09:52 Dose: 1 tab Zinc Sulfate (Zinc Sulfate) 220 mg PO DAILY [facility] Stop: 01/14/19 08:59 Last Admin: 11/16/18 09:52 Dose: 220 mg Lab - Result Diagrams 11/17/18 05:50 11/17/18 05:50 Kidney fnc better w/ BUN/CR 82/1 replace K Stool for OB (+) f/u electrolytes Nutritional Asmnt/Malnutr-PDOC - Dietary Evaluation Malnutrition Findings (Please click <Entered> for more info): Nutritional Asmnt/Malnutrition Start: 11/15/18 12: 21 Text: Status: Complete Freq: Protocol: Document 11/15/18 12:21 MERCEDES (Rec: 11/15/18 12:35 [id number] [id number]) Nutritional Asmnt/Malnutrition Patient General Information Nutritional Screening High Risk Diagnosis UTI & Dehydration Pertinent Medical Hx/Surgical Hx HTN, CHF, COPD, acute renal failure, type 2 diabetes Subjective Information Patient was admitted from residential; on dialysis at time of visit. Patient crying. Current Diet Order/ Nutrition Support Cardiac Patient / S.O Not Indicated Pertinent Medications vitmain C, Lipitor, Iron, Lantus, Humalog, protonix, Vitamin B complex with C, zinc sulfate Pertinent Labs (11/14) Na 135, K 3.3, BUN 136, Cr 1.5, Mg 1.8, glucose 141- 200 Nutritional Hx/Data Height 1.7 m Height (Calculated Centimeters) 170.2 Current Weight (lbs) 164.2 kg Weight (Calculated Kilograms) 164.2 Weight (Calculated Grams) 659432.4 [place] Body Weight 148 % [place] Body Weight 244 Body Mass Index (BMI) 56.7 Recent Weight Change No Weight Status Morbidly Obese GI Symptoms GI Symptoms None Last BM none noted since admission Difficult in: None Food Allergies No Cultural/Ethnic/Mandaeism Belief none indicated Usual diet at home unknown Skin Integrity/Comment: [place] 14, skin tear Current %PO Good (75-100%) Estimated Nutritional Goals BEE in Kcals: Adj wt of IBW Calories/Kcals/Kg using Adj BW 91.5kg Kcals Calculated ~3711-2825 kcal/day Protein: Adj wt of IBW Protein g/k-1.2 gm/kg Protein Calculated 90-110 gm/day Fluid: ml ~4401-3211 ml/day (1 ml/kcal) Nutritional Problem 1. Problem Problem Altered nutrition related lab values related to Etiology electrolyte imbalance and hyperglycemia aeb Signs/Symptoms: Na 135, K 3.3, mg 1.8, glucose 141-200 Intervention/Recommendation Comments 1. Consider modifying diet to 60 gm CCHO. No need for renal diet at this time due to hypokalemia, no need for low potassium diet. Check phosphorus level to determine need for dietary phosphorus restriction. Current diet is low in sodium. Expected Outcomes/Goals Expected Outcomes/Goals Oral itnake >75% of meals, weight stable, nutrition related labs WNL F/U MR
--- NOTE | 2018-11-17 16:50 | Internal Medicine Prog Note ---
Internal Medicine Subjective - Subjective Service Date: 11/17/18 Patient is:: awake, verbal Per staff patient has:: tolerating meds Internal Medicine Objective - Results Result Diagrams: 11/17/18 05:50 11/17/18 05:50 Recent Labs: Laboratory Last Values WBC 4.8 Th/cmm (4.8-10.8) 11/17/18 05:50 RBC 3.26 Mil/cmm (3.80-5.10) L 11/17/18 05:50 Hgb 9.7 gm/dL (12-16) L 11/17/18 05:50 Hct 28.8 % (41.0-60) L 11/17/18 05:50 MCV 88.2 fl (81-100) 11/17/18 05:50 MCH 29.6 pg (27.0-31.0) 11/17/18 05:50 MCHC Differential 33.6 pg (28.0-36.0) 11/17/18 05:50 RDW 15.2 % (11.5-20.0) 11/17/18 05:50 Plt Count 234 Th/cmm (150-400) 11/17/18 05:50 MPV 8.8 fl 11/17/18 05:50 Neutrophils % 66.4 % (40.0-80.0) 11/17/18 05:50 Lymphocytes % 18.1 % (20.0-50.0) L 11/17/18 05:50 Monocytes % 11.0 % (2.0-10.0) H 11/17/18 05:50 Eosinophils % 3.8 % (0.0-5.0) 11/17/18 05:50 Basophils % 0.7 % (0.0-2.0) 11/17/18 05:50 Eos Smear Source URINE 11/15/18 21:30 Eos Smear Total Cells NONE SEEN (NONE SEEN) 11/15/18 21:30 PT 11.0 SECONDS (9.5-11.5) 11/14/18 21:10 INR 1.06 (0.5-1.4) 11/14/18 21:10 PTT (Actin FS) 32.2 SECONDS (26.0-38.0) 11/14/18 21:10 Sodium 136 mEq/L (136-145) 11/17/18 05:50 Potassium 3.5 mEq/L (3.5-5.1) 11/17/18 05:50 Chloride 101 mEq/L (98-107) 11/17/18 05:50 Carbon Dioxide 28.3 mEq/L (21.0-31.0) 11/17/18 05:50 Anion Gap 10.2 (7.0-16.0) 11/17/18 05:50 BUN 82 mg/dL (7-25) H* 11/17/18 05:50 Creatinine 1.0 mg/dL (0.6-1.2) 11/17/18 05:50 Est GFR ( Amer) > 60.0 ml/min (>90) 11/17/18 05:50 Est GFR (Non-Af Amer) > 60.0 ml/min 11/17/18 05:50 BUN/Creatinine Ratio 82.0 11/17/18 05:50 Glucose 196 mg/dL (70-105) H 11/17/18 05:50 POC Glucose 264 MG/DL (70 - 105) H 11/17/18 16:08 Uric Acid 8.8 mg/dL (2.3-6.6) H 11/16/18 06:20 Calcium 8.8 mg/dL (8.6-10.3) 11/17/18 05:50 Phosphorus 2.9 mg/dL (2.5-5.0) 11/16/18 06:20 Magnesium 2.2 mg/dL (1.9-2.7) 11/16/18 06:20 B-Natriuretic Peptide 76.2 pg/mL (5.0-100.0) 11/14/18 21:10 TSH 2.40 uIU/ml (0.34-5.60) 11/14/18 21:10 Urine Source [place] 11/14/18 21:40 Urine Color YELLOW 11/14/18 21:40 Urine Clarity CLOUDY (CLEAR) H 11/14/18 21:40 Urine pH 6.0 (4.6 - 8.0) 11/14/18 21:40 Ur Specific [place] 1.015 (1.005-1.030) 11/14/18 21:40 Urine Protein 100 mg/dL (NEGATIVE) H 11/14/18 21:40 Urine Glucose (UA) NEGATIVE mg/dL (NEGATIVE) 11/14/18 21:40 Urine Ketones NEGATIVE mg/dL (NEGATIVE) 11/14/18 21:40 Urine Blood LARGE (NEGATIVE) H 11/14/18 21:40 Urine Nitrate NEGATIVE (NEGATIVE) 11/14/18 21:40 Urine Bilirubin NEGATIVE (NEGATIVE) 11/14/18 21:40 Urine Urobilinogen 0.2 E.U./dL (0.2 - 1.0) 11/14/18 21:40 Ur Leukocyte Esterase MODERATE (NEGATIVE) H 11/14/18 21:40 Urine RBC 5-10 /hpf (0-5) H 11/14/18 21:40 Urine WBC 25-50 /hpf (0-5) H 11/14/18 21:40 Ur Epithelial Cells FEW /lpf (FEW) 11/14/18 21:40 Urine Bacteria MANY /hpf (NONE SEEN) H 11/14/18 21:40 Urine Creatinine 35.0 mg/dl (28.0-217.0) 11/15/18 21:30 Microalb/Creat Ratio 305.9 mg/g creat (0.0-30.0) H 11/15/18 21:30 Stool Occult Blood POSITIVE (NEGATIVE) H 11/16/18 19:00 - Physical Exam Vitals and I&O: Vital Signs Temp 98.1 F 11/17/18 15:30 Pulse 65 11/17/18 15:30 Resp 18 11/17/18 15:30 BP 105/47 11/17/18 15:30 Pulse Ox 96 11/17/18 15:30 Intake & Output 11/16/18 11/17/18 11/17/18 18:59 06:59 18:59 Intake Total 1290 Balance 1290 Weight (lbs) 362 lb Intake: Intake, IV Amount 1050 Sodium Chloride 0.9% 1, 1000 000 ml @ 100 mls/hr IV . Q10H [facility] Rx#:[id number] cefTRIAXone 1 gm In 50 Sodium Chloride 0.9% 50 ml @ 100 mls/hr IV Q24HR [facility] Rx#:[id number] Oral 240 Other: Stool Characteristics Soft Soft Soft Weight Source Bedscale Active Medications: Current Medications Acetaminophen/Hydrocodone Bitart ([place] 5mg/325mg) 1 tab PO Q8H PRN PRN Reason: Pain (Severe) Stop: 01/14/19 21:40 Last Admin: 11/17/18 10:01 Dose: 1 tab Albuterol Sulfate (Albuterol 2.5mg/3ml Neb Ud) 2.5 mg HHN Q2H PRN PRN Reason: Shortness of Breath or Wheeze Stop: 01/14/19 01:40 Ascorbic Acid (Vitamin C) 500 mg PO BID [facility] Stop: 01/14/19 08:59 Last Admin: 11/17/18 09:39 Dose: 500 mg Atorvastatin Calcium (Lipitor) 10 mg PO HS [facility]; Protocol Stop: 01/14/19 20:59 Last Admin: 11/16/18 20:55 Dose: 10 mg Bisacodyl (Dulcolax 5 Mg Ec Tab) 10 mg PO DAILY [facility] Stop: 01/16/19 14:29 Last Admin: 11/17/18 15:23 Dose: 10 mg Bupropion HCl (Wellbutrin Xl) 150 mg PO DAILY [facility]; Protocol Stop: 01/14/19 08:59 Last Admin: 11/17/18 09:38 Dose: 150 mg Buspirone HCl (Buspar) 20 mg PO BID [facility]; Protocol Stop: 01/14/19 08:59 Last Admin: 11/17/18 09:39 Dose: 20 mg Carvedilol (Coreg) 12.5 mg PO BIDWM [facility] Stop: 01/14/19 08:59 Last Admin: 11/17/18 08:09 Dose: Not Given Diltiazem HCl (Cardizem Cd) 120 mg PO DAILY [facility] Stop: 01/14/19 08:59 Last Admin: 11/17/18 09:39 Dose: 120 mg Duloxetine HCl (Cymbalta) 30 mg PO DAILY [facility]; Protocol Stop: 01/14/19 08:59 Last Admin: 11/17/18 09:39 Dose: 30 mg Epoetin Amaury (Epogen) 10,000 units SUBQ TuThSa [facility] Stop: 01/14/19 15:44 Last Admin: 11/16/18 10:03 Dose: 10,000 units Ferrous Sulfate (Iron) 325 mg PO BID [facility] Stop: 01/14/19 08:59 Last Admin: 11/17/18 09:39 Dose: 325 mg Gabapentin (Neurontin) 600 mg PO BID [facility] Stop: 01/14/19 08:59 Last Admin: 11/17/18 09:39 Dose: 600 mg Ceftriaxone Sodium 1 gm/ (Sodium Chloride) 50 mls @ 100 mls/hr IV Q24HR [facility] Stop: 01/14/19 10:14 Last Admin: 11/17/18 09:38 Dose: 100 mls/hr Sodium Chloride (Nacl 0.9%) 1,000 mls @ 100 mls/hr IV .Q10H [facility] Stop: 01/14/19 15:14 Last Admin: 11/16/18 17:21 Dose: 100 mls/hr Insulin Glargine (Lantus Insulin) 54 units SUBQ HS [facility] Stop: 01/14/19 20:59 Last Admin: 11/16/18 21:05 Dose: Not Given Insulin Human Lispro (Humalog Insulin Sliding Scale) 0 units SUBQ ACHS [facility]; Protocol Stop: 01/14/19 07:29 Last Admin: 11/17/18 16:17 Dose: 9 units Ipratropium [place] (Atrovent Neb 0.5mg/2.5ml) 0.5 mg HHN Q2HR PRN PRN Reason: Shortness of Breath or Wheeze Stop: 01/14/19 01:40 Lorazepam (Ativan) 1 mg PO Q6HR PRN; Protocol PRN Reason: Agitation Stop: 01/14/19 21:42 Last Admin: 11/17/18 10:00 Dose: 1 mg Pantoprazole Sodium (Protonix) 40 mg IVP DAILY [facility] Stop: 01/14/19 08:59 Last Admin: 11/17/18 09:39 Dose: 40 mg Pioglitazone HCl (Actos) 30 mg PO QDAC [facility] Stop: 01/14/19 07:29 Last Admin: 11/17/18 06:35 Dose: Not Given Potassium Chloride (Klor-Con) 20 meq PO DAILY [facility] Stop: 01/15/19 17:59 Last Admin: 11/17/18 09:40 Dose: 20 meq Trazodone HCl (Desyrel) 50 mg PO HS [facility]; Protocol Stop: 01/14/19 20:59 Last Admin: 11/16/18 20:55 Dose: 50 mg Vitamin B Complex/Vit C/Folic Acid (Vitamin B Complex W/Vitamin C) 1 tab PO DAILY [facility] Stop: 01/14/19 08:59 Last Admin: 11/17/18 09:40 Dose: 1 tab Zinc Sulfate (Zinc Sulfate) 220 mg PO DAILY [facility] Stop: 01/14/19 08:59 Last Admin: 11/17/18 09:40 Dose: 220 mg General: weak, alert HEENT: NC/AT, PERRLA Neck: Supple Lungs: CTAB Cardiovascular: RRR, Normal S1, Normal S2 Abdomen: soft, non-tender, non-distended Extremities: excoriation Neurological: alert, unable to follow command Internal Medicine Assmt/Plan - Assessment Assessment: Acute urinary tract infection, acute renal failure, morbidly obese, anemia, hypomagnesemia, morbid obesity, hypertension, congestive heart failure, asthma, chronic obstructive pulmonary disease, type 2 diabetes. - Plan Plan: continue iv rocephin am labs urine culture pending continue current plan of care Nutritional Asmnt/Malnutr-PDOC - Dietary Evaluation Malnutrition Findings (Please click <Entered> for more info): Nutritional Asmnt/Malnutrition Start: 11/15/18 12: 21 Text: Status: Complete Freq: Protocol: Document 11/15/18 12:21 MERCEDES (Rec: 11/15/18 12:35 [id number]) Nutritional Asmnt/Malnutrition Patient General Information Nutritional Screening High Risk Diagnosis UTI & Dehydration Pertinent Medical Hx/Surgical Hx HTN, CHF, COPD, acute renal failure, type 2 diabetes Subjective Information Patient was admitted from skilled nursing; on dialysis at time of visit. Patient crying. Current Diet Order/ Nutrition Support Cardiac Patient / S.O Not Indicated Pertinent Medications vitmain C, Lipitor, Iron, Lantus, Humalog, protonix, Vitamin B complex with C, zinc sulfate Pertinent Labs (11/14) Na 135, K 3.3, BUN 136, Cr 1.5, Mg 1.8, glucose 141- 200 Nutritional Hx/Data Height 5 ft 7 in Height (Calculated Centimeters) 170.2 Current Weight (lbs) 362 lb Weight (Calculated Kilograms) 164.2 Weight (Calculated Grams) 715476.4 [place] Body Weight 148 % [place] Body Weight 244 Body Mass Index (BMI) 56.7 Recent Weight Change No Weight Status Morbidly Obese GI Symptoms GI Symptoms None Last BM none noted since admission Difficult in: None Food Allergies No Cultural/Ethnic/Mosque Belief none indicated Usual diet at home unknown Skin Integrity/Comment: Harshal 14, skin tear Current %PO Good (75-100%) Estimated Nutritional Goals BEE in Kcals: Adj wt of IBW Calories/Kcals/Kg using Adj BW 91.5kg Kcals Calculated ~9586-8316 kcal/day Protein: Adj wt of IBW Protein g/k-1.2 gm/kg Protein Calculated 90-110 gm/day Fluid: ml ~0273-5196 ml/day (1 ml/kcal) Nutritional Problem 1. Problem Problem Altered nutrition related lab values related to Etiology electrolyte imbalance and hyperglycemia aeb Signs/Symptoms: Na 135, K 3.3, mg 1.8, glucose 141-200 Intervention/Recommendation Comments 1. Consider modifying diet to 60 gm CCHO. No need for renal diet at this time due to hypokalemia, no need for low potassium diet. Check phosphorus level to determine need for dietary phosphorus restriction. Current diet is low in sodium. Expected Outcomes/Goals Expected Outcomes/Goals Oral itnake >75% of meals, weight stable, nutrition related labs WNL F/U MR
[2018-11-17] MEDS: Atorvastatin Calcium 10 MG TAB PO SCH (20:13)
[2018-11-17] MEDS: Insulin Glargine 100 units/ml 10ml Vial SUBQ SCH (20:14)
--- NOTE | 2018-11-17 22:01 | Consultation ---
DATE OF CONSULTATION: 11/17/2018 INPATIENT GI CONSULTATION CONSULTING PHYSICIAN: Dr. Manuel. REASON FOR CONSULTATION: Abdominal pain. HISTORY OF PRESENT ILLNESS: The patient is a 58-year-old female with past medical history significant for COPD, CHF, immobility, hypertension, uterine cancer, admitted to the hospital with shortness of breath, abdominal pain, generalized fatigue. The patient normally resides at [facility] and her initial complaint was shortness of breath. However, she has been complaining additionally of bilateral lower pelvic abdominal cramping for 6 months. She notes that the cramping is on and off all day long and that she does feel somewhat better when she has a bowel movement, but her cramping quickly returns. She has been having difficulty going to the bathroom since having uterine surgery in 2017. After this point, she has been largely bedbound. She thinks that she is backed up and she has tried many types of laxatives in the past, but has been unsuccessful at having regular bowel movements. She does report having a colonoscopy in 2017 at [place], but cannot specifically remember what the results were. At the current time, she is still having bilateral lower abdominal cramping pain, although we do not have any imaging done in this admission. PAST MEDICAL HISTORY: COPD, CHF, uterine cancer, hypertension, type 2 diabetes. PAST SURGICAL HISTORY: Kidney surgery in the past, hysterectomy in 2017, eye surgery x 5. FAMILY HISTORY: Noncontributory. SOCIAL HISTORY: The patient lives at a [place] [facility]. She does not use alcohol or illicit drugs. She quit smoking recently. ALLERGIES: THERE IS REPORTED ALLERGY TO FLUOXETINE. REVIEW OF SYSTEMS: A 12-point review of systems was performed. The patient is negative and the pertinent positives mentioned in history of present illness. CURRENT MEDICATIONS: Include Tylenol, albuterol, vitamin C, Lipitor, bupropion, Coreg, ceftriaxone, diltiazem, Cymbalta, Epogen, iron, gabapentin, insulin, lorazepam, Protonix, pioglitazone, trazodone, zinc. PHYSICAL EXAMINATION: VITAL SIGNS: Blood pressure is 115/56, pulse 69 beats per minute, temperature 98.2, oxygenation 97%. GENERAL: The patient is lying on her back. She is alert and oriented x 3. She appears anxious and upset. HEAD, EARS, EYES, NOSE AND THROAT: Normocephalic, atraumatic appearing head. Pupils are equal and reactive. Extraocular muscles are intact. There are moist mucous membranes. NECK: Supple, no JVD, no thyromegaly. LUNGS: There are crackles bilaterally. CARDIOVASCULAR: S1, S2 are present, regular rate and rhythm. ABDOMEN: Morbidly obese, soft. There is tenderness to palpation in the lower quadrants. There is no guarding or rebound. EXTREMITIES: Nonpitting edema bilaterally. Pulses are not present. SKIN: There is no jaundice. LABORATORY DATA: White blood cell count 4.8, hemoglobin 9.7, platelet count is 234. Sodium 136, BUN 82, creatinine 1.0. IMAGING: No abdominal imaging has been performed. IMPRESSION: This is a 58-year-old female with history of end-stage renal disease, hypertension, chronic obstructive pulmonary disease, congestive heart failure, uterine cancer with status post hysterectomy in 2017, admitted to the hospital with shortness of breath, anxiety, and abdominal pain. 1. Bilateral lower abdominal cramping. 2. Immobility problem. 3. History of uterine cancer with hysterectomy. 4. Anxiety and depression. 5. Chronic obstructive pulmonary disease. 6. Congestive heart failure. 7. End-stage renal disease, on hemodialysis. DISCUSSION: This patient's lower abdominal pain is chronic. She reports having this going on for the past 6-7 months each day every day. She notes that she has some relief going to the bathroom, but she thinks that most of her issues that she is not able to empty her bowels very well. She has been confined to the bed since having uterine surgery in 2017 and is very weak in her lower extremities. She has tried some laxative therapy before, but notes that she has been largely unsuccessful with this. She also does have a colonoscopy in 2017, but cannot remember the results as this was done at [place]. I think that this is probably some element of irritable bowel syndrome with constipation and that the patient may have improved symptomology if we are able to evacuate her bowels on a more regular basis. Thus, we will start with imaging using a KUB and we will also follow the abdominal ultrasound. Additionally, we will start the patient on GoLYTELY 4 liters just in order to clear out the colon to see if this may reduce her symptoms and then start a regular bowel regimen with possibly MiraLax and senna or Colace. RECOMMENDATIONS: 1. KUB. 2. A 4 liters of GoLYTELY to be given slowly over the course of 24 hours. The patient requests possibly a rectal tube as she is unable to get out of the bed, which is reasonable. 3. Follow up the abdominal ultrasound to evaluate the gallbladder and pelvic region. 4. Diet can be as tolerated for the time being. 5. Try to obtain the records of her colonoscopy in 2017 from [place]. 6. Dicyclomine can be considered given that I think her pain is mostly irritable bowel syndrome. Thank you for allowing me to participate in her care. We will continue to follow. JOB# [id number]
[2018-11-18 05:05] LABS: % BASOPHILS 0.7 % (0.0-2.0); % EOSINOPHILS 3.8 % (0.0-5.0); % LYMPHOCYTES 14.5 % (20.0-50.0); % MONOCYTES 10.1 % (2.0-10.0); % NEUTROPHILS 70.9 % (40.0-80.0); EOSINOPHILE ABSOLUTE 0.2 Th/cmm (0.1-0.4); HEMATOCRIT 28.1 % (41.0-60); HEMOGLOBIN 9.4 gm/dL (12-16); LYMPHOCYTE ABSOLUTE 0.8 Th/cmm (1.5-3.0); MEAN CELL VOLUME 88.9 fl (81-100); MEAN CORPUSCULAR HEMOGLOBIN 29.6 pg (27.0-31.0); MEAN CORPUSCULAR HGB CONC 33.4 pg (28.0-36.0); MEAN PLATELET VOLUME 8.6 fl; MONOCYTE ABSOLUTE 0.6 Th/cmm (0.3-1.0); NEUTROPHILE ABSOLUTE 3.9 Th/cmm (1.8-8.0); PLATELET COUNT 249 Th/cmm (150-400); RED BLOOD COUNT 3.16 Mil/cmm (3.80-5.10); WHITE BLOOD COUNT 5.5 Th/cmm (4.8-10.8)
[2018-11-18 05:18] LABS: ANION GAP 10.7 (7.0-16.0); BUN - UREA NITROGEN 60 mg/dL (7-25); CALCIUM SERUM 8.6 mg/dL (8.6-10.3); CARBON DIOXIDE 27.1 mEq/L (21.0-31.0); CHLORIDE 106 mEq/L (98-107); CREATININE - SERUM 0.9 mg/dL (0.6-1.2); GFR AFRICAN-AMERICAN > 60.0 ml/min (>90); GFR NON AFRICAN-AMERICAN > 60.0 ml/min; GLUCOSE 286 mg/dL (70-105); POTASSIUM SERUM 3.8 mEq/L (3.5-5.1); SODIUM SERUM 140 mEq/L (136-145)
[2018-11-18] MEDS: INSULIN LISPRO SLIDING SCALE 100 UNITS/ML UNIT SUBQ SCH ×4 (06:43→21:11)
[2018-11-18] MEDS: Hydrocodone/APAP 5mg/325mg Tab PO PRN ×2 (08:48→17:17)
[2018-11-18] MEDS: Ferrous Sulfate 325 MG TAB PO SCH ×2 (08:49→16:39)
[2018-11-18] MEDS: Diltiazem CD 120 mg 24H PO SCH (08:49)
[2018-11-18] MEDS: Potassium Chloride 20 mEq ER Tab PO SCH (08:52)
[2018-11-18] MEDS: Vitamin B Complex w/Vitamin C Tab PO SCH (08:54)
[2018-11-18] MEDS: buPROPion XL 150 mg T 24 H PO SCH (09:02)
[2018-11-18] MEDS: cefTRIAXone 1 GM in Sodium Chloride 0.9% 50 ML IV SCH (10:25)
--- NOTE | 2018-11-18 11:04 | General Progress Note ---
Subjective - Review of Systems Service Date: 11/18/18 Subjective: Patient has no complaint of chest pain shortness of breath abdominal pain Objective - Results Result Diagrams: 11/18/18 04:35 11/18/18 04:35 Recent Labs: Laboratory Last Values WBC 5.5 Th/cmm (4.8-10.8) 11/18/18 04:35 RBC 3.16 Mil/cmm (3.80-5.10) L 11/18/18 04:35 Hgb 9.4 gm/dL (12-16) L 11/18/18 04:35 Hct 28.1 % (41.0-60) L 11/18/18 04:35 MCV 88.9 fl (81-100) 11/18/18 04:35 MCH 29.6 pg (27.0-31.0) 11/18/18 04:35 MCHC Differential 33.4 pg (28.0-36.0) 11/18/18 04:35 RDW 15.0 % (11.5-20.0) 11/18/18 04:35 Plt Count 249 Th/cmm (150-400) 11/18/18 04:35 MPV 8.6 fl 11/18/18 04:35 Neutrophils % 70.9 % (40.0-80.0) 11/18/18 04:35 Lymphocytes % 14.5 % (20.0-50.0) L 11/18/18 04:35 Monocytes % 10.1 % (2.0-10.0) H 11/18/18 04:35 Eosinophils % 3.8 % (0.0-5.0) 11/18/18 04:35 Basophils % 0.7 % (0.0-2.0) 11/18/18 04:35 Eos Smear Source URINE 11/15/18 21:30 Eos Smear Total Cells NONE SEEN (NONE SEEN) 11/15/18 21:30 PT 11.0 SECONDS (9.5-11.5) 11/14/18 21:10 INR 1.06 (0.5-1.4) 11/14/18 21:10 PTT (Actin FS) 32.2 SECONDS (26.0-38.0) 11/14/18 21:10 Sodium 140 mEq/L (136-145) 11/18/18 04:35 Potassium 3.8 mEq/L (3.5-5.1) 11/18/18 04:35 Chloride 106 mEq/L (98-107) 11/18/18 04:35 Carbon Dioxide 27.1 mEq/L (21.0-31.0) 11/18/18 04:35 Anion Gap 10.7 (7.0-16.0) 11/18/18 04:35 BUN 60 mg/dL (7-25) H 11/18/18 04:35 Creatinine 0.9 mg/dL (0.6-1.2) 11/18/18 04:35 Est GFR ( Amer) > 60.0 ml/min (>90) 11/18/18 04:35 Est GFR (Non-Af Amer) > 60.0 ml/min 11/18/18 04:35 BUN/Creatinine Ratio 66.7 11/18/18 04:35 Glucose 286 mg/dL (70-105) H 11/18/18 04:35 POC Glucose 230 MG/DL (70 - 105) H 11/18/18 06:31 Uric Acid 8.8 mg/dL (2.3-6.6) H 11/16/18 06:20 Calcium 8.6 mg/dL (8.6-10.3) 11/18/18 04:35 Phosphorus 2.9 mg/dL (2.5-5.0) 11/16/18 06:20 Magnesium 2.2 mg/dL (1.9-2.7) 11/16/18 06:20 B-Natriuretic Peptide 76.2 pg/mL (5.0-100.0) 11/14/18 21:10 TSH 2.40 uIU/ml (0.34-5.60) 11/14/18 21:10 Urine Source [place] 11/14/18 21:40 Urine Color YELLOW 11/14/18 21:40 Urine Clarity CLOUDY (CLEAR) H 11/14/18 21:40 Urine pH 6.0 (4.6 - 8.0) 11/14/18 21:40 Ur Specific [place] 1.015 (1.005-1.030) 11/14/18 21:40 Urine Protein 100 mg/dL (NEGATIVE) H 11/14/18 21:40 Urine Glucose (UA) NEGATIVE mg/dL (NEGATIVE) 11/14/18 21:40 Urine Ketones NEGATIVE mg/dL (NEGATIVE) 11/14/18 21:40 Urine Blood LARGE (NEGATIVE) H 11/14/18 21:40 Urine Nitrate NEGATIVE (NEGATIVE) 11/14/18 21:40 Urine Bilirubin NEGATIVE (NEGATIVE) 11/14/18 21:40 Urine Urobilinogen 0.2 E.U./dL (0.2 - 1.0) 11/14/18 21:40 Ur Leukocyte Esterase MODERATE (NEGATIVE) H 11/14/18 21:40 Urine RBC 5-10 /hpf (0-5) H 11/14/18 21:40 Urine WBC 25-50 /hpf (0-5) H 11/14/18 21:40 Ur Epithelial Cells FEW /lpf (FEW) 11/14/18 21:40 Urine Bacteria MANY /hpf (NONE SEEN) H 11/14/18 21:40 Urine Creatinine 35.0 mg/dl (28.0-217.0) 11/15/18 21:30 Microalb/Creat Ratio 305.9 mg/g creat (0.0-30.0) H 11/15/18 21:30 Stool Occult Blood POSITIVE (NEGATIVE) H 11/16/18 19:00 - Physical Exam Vitals and I&O: Vital Signs Temp 99.3 F 11/18/18 08:53 Pulse 85 11/18/18 08:53 Resp 18 11/18/18 08:53 BP 135/60 11/18/18 08:53 Pulse Ox 99 11/18/18 08:53 Intake & Output 11/17/18 11/18/18 11/18/18 18:59 06:59 18:59 Intake Total 250 Balance 250 Weight (lbs) 164.2 kg 162.84 kg Intake: Intake, IV Amount 50 cefTRIAXone 1 gm In 50 Sodium Chloride 0.9% 50 ml @ 100 mls/hr IV Q24HR [facility] Rx#:[id number] Oral 200 Other: # Voids 2 2 # Bowel Movements 2 2 Stool Characteristics Soft Soft Soft Weight Source Bedscale Bedscale Active Medications: Current Medications Acetaminophen/Hydrocodone Bitart ([place] 5mg/325mg) 1 tab PO Q8H PRN PRN Reason: Pain (Severe) Stop: 01/14/19 21:40 Last Admin: 11/18/18 08:48 Dose: 1 tab Albuterol Sulfate (Albuterol 2.5mg/3ml Neb Ud) 2.5 mg HHN Q2H PRN PRN Reason: Shortness of Breath or Wheeze Stop: 01/14/19 01:40 Ascorbic Acid (Vitamin C) 500 mg PO BID [facility] Stop: 01/14/19 08:59 Last Admin: 11/18/18 08:54 Dose: 500 mg Atorvastatin Calcium (Lipitor) 10 mg PO HS [facility]; Protocol Stop: 01/14/19 20:59 Last Admin: 11/17/18 20:13 Dose: 10 mg Bisacodyl (Dulcolax 5 Mg Ec Tab) 10 mg PO DAILY [facility] Stop: 01/16/19 14:29 Last Admin: 11/18/18 08:52 Dose: 10 mg Bupropion HCl (Wellbutrin Xl) 150 mg PO DAILY [facility]; Protocol Stop: 01/14/19 08:59 Last Admin: 11/18/18 09:02 Dose: 150 mg Buspirone HCl (Buspar) 20 mg PO BID [facility]; Protocol Stop: 01/14/19 08:59 Last Admin: 11/18/18 08:49 Dose: 20 mg Carvedilol (Coreg) 12.5 mg PO BIDWM [facility] Stop: 01/14/19 08:59 Last Admin: 11/18/18 08:53 Dose: 12.5 mg Diltiazem HCl (Cardizem Cd) 120 mg PO DAILY [facility] Stop: 01/14/19 08:59 Last Admin: 11/18/18 08:49 Dose: 120 mg Duloxetine HCl (Cymbalta) 30 mg PO DAILY [facility]; Protocol Stop: 01/14/19 08:59 Last Admin: 11/18/18 08:53 Dose: 30 mg Epoetin Amaury (Epogen) 10,000 units SUBQ TuThSa [facility] Stop: 01/14/19 15:44 Last Admin: 11/16/18 10:03 Dose: 10,000 units Ferrous Sulfate (Iron) 325 mg PO BID [facility] Stop: 01/14/19 08:59 Last Admin: 11/18/18 08:49 Dose: 325 mg Gabapentin (Neurontin) 600 mg PO BID [facility] Stop: 01/14/19 08:59 Last Admin: 11/18/18 08:49 Dose: 600 mg Ceftriaxone Sodium 1 gm/ (Sodium Chloride) 50 mls @ 100 mls/hr IV Q24HR [facility] Stop: 01/14/19 10:14 Last Admin: 11/18/18 10:25 Dose: 100 mls/hr Sodium Chloride (Nacl 0.9%) 1,000 mls @ 100 mls/hr IV .Q10H [facility] Stop: 01/14/19 15:14 Last Admin: 11/16/18 17:21 Dose: 100 mls/hr Insulin Glargine (Lantus Insulin) 54 units SUBQ HS [facility] Stop: 01/14/19 20:59 Last Admin: 11/17/18 20:14 Dose: 54 units Insulin Human Lispro (Humalog Insulin Sliding Scale) 0 units SUBQ ACHS [facility]; Protocol Stop: 01/14/19 07:29 Last Admin: 11/18/18 06:43 Dose: 6 units Ipratropium [place] (Atrovent Neb 0.5mg/2.5ml) 0.5 mg HHN Q2HR PRN PRN Reason: Shortness of Breath or Wheeze Stop: 01/14/19 01:40 Lorazepam (Ativan) 1 mg PO Q6HR PRN; Protocol PRN Reason: Agitation Stop: 01/14/19 21:42 Last Admin: 11/18/18 08:49 Dose: 1 mg Pantoprazole Sodium (Protonix) 40 mg IVP DAILY [facility] Stop: 01/14/19 08:59 Last Admin: 11/18/18 08:53 Dose: 40 mg Pioglitazone HCl (Actos) 30 mg PO QDAC [facility] Stop: 01/14/19 07:29 Last Admin: 11/18/18 06:43 Dose: 30 mg Potassium Chloride (Klor-Con) 20 meq PO DAILY [facility] Stop: 01/15/19 17:59 Last Admin: 11/18/18 08:52 Dose: 20 meq Trazodone HCl (Desyrel) 50 mg PO HS [facility]; Protocol Stop: 01/14/19 20:59 Last Admin: 11/17/18 20:14 Dose: 50 mg Vitamin B Complex/Vit C/Folic Acid (Vitamin B Complex W/Vitamin C) 1 tab PO DAILY [facility] Stop: 01/14/19 08:59 Last Admin: 11/18/18 08:54 Dose: 1 tab Zinc Sulfate (Zinc Sulfate) 220 mg PO DAILY [facility] Stop: 01/14/19 08:59 Last Admin: 11/18/18 08:53 Dose: 220 mg General: Alert, Moderate distress HEENT: Atraumatic, Mucous membr. moist/pink Neck: Supple, +2 carotid pulse wo bruit Cardiovascular: Regular rate, Normal S1, Normal S2 Lungs: Clear to auscultation Abdomen: Bowel sounds, Soft Extremities: no Edema Neurological: Sensation intact Skin: no Rash Psych/Mental Status: Mood NL Assessment/Plan - Assessment Assessment: Uterine cancer Right leg cellulitis Diabetes mellitus type 2 Diabetic security stage III Major depression GI bleed with anemia stool for occult blood positive Angina stable Obesity iron deficiency anemia Congenital horseshoe kidney bilateral - Plan Plan: Patient to continue present management and awaiting GI evaluation Nutritional Asmnt/Malnutr-PDOC - Dietary Evaluation Malnutrition Findings (Please click <Entered> for more info): Nutritional Asmnt/Malnutrition Start: 11/15/18 12: 21 Text: Status: Complete Freq: Protocol: Document 11/15/18 12:21 MERCEDES (Rec: 11/15/18 12:35 [id number]) Nutritional Asmnt/Malnutrition Patient General Information Nutritional Screening High Risk Diagnosis UTI & Dehydration Pertinent Medical Hx/Surgical Hx HTN, CHF, COPD, acute renal failure, type 2 diabetes Subjective Information Patient was admitted from senior living; on dialysis at time of visit. Patient crying. Current Diet Order/ Nutrition Support Cardiac Patient / S.O Not Indicated Pertinent Medications vitmain C, Lipitor, Iron, Lantus, Humalog, protonix, Vitamin B complex with C, zinc sulfate Pertinent Labs (11/14) Na 135, K 3.3, BUN 136, Cr 1.5, Mg 1.8, glucose 141- 200 Nutritional Hx/Data Height 1.7 m Height (Calculated Centimeters) 170.2 Current Weight (lbs) 164.2 kg Weight (Calculated Kilograms) 164.2 Weight (Calculated Grams) 618367.4 Jena Body Weight 148 % Jena Body Weight 244 Body Mass Index (BMI) 56.7 Recent Weight Change No Weight Status Morbidly Obese GI Symptoms GI Symptoms None Last BM none noted since admission Difficult in: None Food Allergies No Cultural/Ethnic/Jew Belief none indicated Usual diet at home unknown Skin Integrity/Comment: Harshal 14, skin tear Current %PO Good (75-100%) Estimated Nutritional Goals BEE in Kcals: Adj wt of IBW Calories/Kcals/Kg using Adj BW 91.5kg Kcals Calculated ~1692-5513 kcal/day Protein: Adj wt of IBW Protein g/k-1.2 gm/kg Protein Calculated 90-110 gm/day Fluid: ml ~8217-1167 ml/day (1 ml/kcal) Nutritional Problem 1. Problem Problem Altered nutrition related lab values related to Etiology electrolyte imbalance and hyperglycemia aeb Signs/Symptoms: Na 135, K 3.3, mg 1.8, glucose 141-200 Intervention/Recommendation Comments 1. Consider modifying diet to 60 gm CCHO. No need for renal diet at this time due to hypokalemia, no need for low potassium diet. Check phosphorus level to determine need for dietary phosphorus restriction. Current diet is low in sodium. Expected Outcomes/Goals Expected Outcomes/Goals Oral itnake >75% of meals, weight stable, nutrition related labs WNL F/U MR
--- NOTE | 2018-11-18 13:55 | Internal Medicine Prog Note ---
Internal Medicine Subjective - Subjective Service Date: 11/18/18 (patient states over the past years she has been having off and on hematuria. at this time per supervisor public health nursing patient does not have any hematuria. ) Patient is:: awake, verbal Per staff patient has:: tolerating meds Internal Medicine Objective - Results Result Diagrams: 11/18/18 04:35 11/18/18 04:35 Recent Labs: Laboratory Last Values WBC 5.5 Th/cmm (4.8-10.8) 11/18/18 04:35 RBC 3.16 Mil/cmm (3.80-5.10) L 11/18/18 04:35 Hgb 9.4 gm/dL (12-16) L 11/18/18 04:35 Hct 28.1 % (41.0-60) L 11/18/18 04:35 MCV 88.9 fl (81-100) 11/18/18 04:35 MCH 29.6 pg (27.0-31.0) 11/18/18 04:35 MCHC Differential 33.4 pg (28.0-36.0) 11/18/18 04:35 RDW 15.0 % (11.5-20.0) 11/18/18 04:35 Plt Count 249 Th/cmm (150-400) 11/18/18 04:35 MPV 8.6 fl 11/18/18 04:35 Neutrophils % 70.9 % (40.0-80.0) 11/18/18 04:35 Lymphocytes % 14.5 % (20.0-50.0) L 11/18/18 04:35 Monocytes % 10.1 % (2.0-10.0) H 11/18/18 04:35 Eosinophils % 3.8 % (0.0-5.0) 11/18/18 04:35 Basophils % 0.7 % (0.0-2.0) 11/18/18 04:35 Eos Smear Source URINE 11/15/18 21:30 Eos Smear Total Cells NONE SEEN (NONE SEEN) 11/15/18 21:30 PT 11.0 SECONDS (9.5-11.5) 11/14/18 21:10 INR 1.06 (0.5-1.4) 11/14/18 21:10 PTT (Actin FS) 32.2 SECONDS (26.0-38.0) 11/14/18 21:10 Sodium 140 mEq/L (136-145) 11/18/18 04:35 Potassium 3.8 mEq/L (3.5-5.1) 11/18/18 04:35 Chloride 106 mEq/L (98-107) 11/18/18 04:35 Carbon Dioxide 27.1 mEq/L (21.0-31.0) 11/18/18 04:35 Anion Gap 10.7 (7.0-16.0) 11/18/18 04:35 BUN 60 mg/dL (7-25) H 11/18/18 04:35 Creatinine 0.9 mg/dL (0.6-1.2) 11/18/18 04:35 Est GFR ( Amer) > 60.0 ml/min (>90) 11/18/18 04:35 Est GFR (Non-Af Amer) > 60.0 ml/min 11/18/18 04:35 BUN/Creatinine Ratio 66.7 11/18/18 04:35 Glucose 286 mg/dL (70-105) H 11/18/18 04:35 POC Glucose 236 MG/DL (70 - 105) H 11/18/18 11:26 Uric Acid 8.8 mg/dL (2.3-6.6) H 11/16/18 06:20 Calcium 8.6 mg/dL (8.6-10.3) 11/18/18 04:35 Phosphorus 2.9 mg/dL (2.5-5.0) 11/16/18 06:20 Magnesium 2.2 mg/dL (1.9-2.7) 11/16/18 06:20 B-Natriuretic Peptide 76.2 pg/mL (5.0-100.0) 11/14/18 21:10 TSH 2.40 uIU/ml (0.34-5.60) 11/14/18 21:10 Urine Source [place] 11/14/18 21:40 Urine Color YELLOW 11/14/18 21:40 Urine Clarity CLOUDY (CLEAR) H 11/14/18 21:40 Urine pH 6.0 (4.6 - 8.0) 11/14/18 21:40 Ur Specific [place] 1.015 (1.005-1.030) 11/14/18 21:40 Urine Protein 100 mg/dL (NEGATIVE) H 11/14/18 21:40 Urine Glucose (UA) NEGATIVE mg/dL (NEGATIVE) 11/14/18 21:40 Urine Ketones NEGATIVE mg/dL (NEGATIVE) 11/14/18 21:40 Urine Blood LARGE (NEGATIVE) H 11/14/18 21:40 Urine Nitrate NEGATIVE (NEGATIVE) 11/14/18 21:40 Urine Bilirubin NEGATIVE (NEGATIVE) 11/14/18 21:40 Urine Urobilinogen 0.2 E.U./dL (0.2 - 1.0) 11/14/18 21:40 Ur Leukocyte Esterase MODERATE (NEGATIVE) H 11/14/18 21:40 Urine RBC 5-10 /hpf (0-5) H 11/14/18 21:40 Urine WBC 25-50 /hpf (0-5) H 11/14/18 21:40 Ur Epithelial Cells FEW /lpf (FEW) 11/14/18 21:40 Urine Bacteria MANY /hpf (NONE SEEN) H 11/14/18 21:40 Urine Creatinine 35.0 mg/dl (28.0-217.0) 11/15/18 21:30 Microalb/Creat Ratio 305.9 mg/g creat (0.0-30.0) H 11/15/18 21:30 Stool Occult Blood POSITIVE (NEGATIVE) H 11/16/18 19:00 - Physical Exam Vitals and I&O: Vital Signs Temp 99 F 11/18/18 12:02 Pulse 71 11/18/18 12:02 Resp 18 11/18/18 12:02 BP 125/51 11/18/18 12:02 Pulse Ox 96 11/18/18 12:02 Intake & Output 11/17/18 11/18/18 11/18/18 18:59 06:59 18:59 Intake Total 250 Balance 250 Weight (lbs) 362 lb 359 lb Intake: Intake, IV Amount 50 cefTRIAXone 1 gm In 50 Sodium Chloride 0.9% 50 ml @ 100 mls/hr IV Q24HR [facility] Rx#:[id number] Oral 200 Other: # Voids 2 2 # Bowel Movements 2 2 Stool Characteristics Soft Soft Soft Weight Source Bedscale Bedscale Active Medications: Current Medications Acetaminophen/Hydrocodone Bitart ([place] 5mg/325mg) 1 tab PO Q8H PRN PRN Reason: Pain (Severe) Stop: 01/14/19 21:40 Last Admin: 11/18/18 08:48 Dose: 1 tab Albuterol Sulfate (Albuterol 2.5mg/3ml Neb Ud) 2.5 mg HHN Q2H PRN PRN Reason: Shortness of Breath or Wheeze Stop: 01/14/19 01:40 Ascorbic Acid (Vitamin C) 500 mg PO BID [facility] Stop: 01/14/19 08:59 Last Admin: 11/18/18 08:54 Dose: 500 mg Atorvastatin Calcium (Lipitor) 10 mg PO HS [facility]; Protocol Stop: 01/14/19 20:59 Last Admin: 11/17/18 20:13 Dose: 10 mg Bisacodyl (Dulcolax 5 Mg Ec Tab) 10 mg PO DAILY [facility] Stop: 01/16/19 14:29 Last Admin: 11/18/18 08:52 Dose: 10 mg Bupropion HCl (Wellbutrin Xl) 150 mg PO DAILY [facility]; Protocol Stop: 01/14/19 08:59 Last Admin: 11/18/18 09:02 Dose: 150 mg Buspirone HCl (Buspar) 20 mg PO BID [facility]; Protocol Stop: 01/14/19 08:59 Last Admin: 11/18/18 08:49 Dose: 20 mg Carvedilol (Coreg) 12.5 mg PO BIDWM [facility] Stop: 01/14/19 08:59 Last Admin: 11/18/18 08:53 Dose: 12.5 mg Diltiazem HCl (Cardizem Cd) 120 mg PO DAILY [facility] Stop: 01/14/19 08:59 Last Admin: 11/18/18 08:49 Dose: 120 mg Duloxetine HCl (Cymbalta) 30 mg PO DAILY [facility]; Protocol Stop: 01/14/19 08:59 Last Admin: 11/18/18 08:53 Dose: 30 mg Epoetin Amaury (Epogen) 10,000 units SUBQ TuThSa [facility] Stop: 01/14/19 15:44 Last Admin: 11/16/18 10:03 Dose: 10,000 units Ferrous Sulfate (Iron) 325 mg PO BID [facility] Stop: 01/14/19 08:59 Last Admin: 11/18/18 08:49 Dose: 325 mg Gabapentin (Neurontin) 600 mg PO BID [facility] Stop: 01/14/19 08:59 Last Admin: 11/18/18 08:49 Dose: 600 mg Ceftriaxone Sodium 1 gm/ (Sodium Chloride) 50 mls @ 100 mls/hr IV Q24HR [facility] Stop: 01/14/19 10:14 Last Admin: 11/18/18 10:25 Dose: 100 mls/hr Sodium Chloride (Nacl 0.9%) 1,000 mls @ 100 mls/hr IV .Q10H [facility] Stop: 01/14/19 15:14 Last Admin: 11/16/18 17:21 Dose: 100 mls/hr Insulin Glargine (Lantus Insulin) 54 units SUBQ HS [facility] Stop: 01/14/19 20:59 Last Admin: 11/17/18 20:14 Dose: 54 units Insulin Human Lispro (Humalog Insulin Sliding Scale) 0 units SUBQ ACHS [facility]; Protocol Stop: 01/14/19 07:29 Last Admin: 11/18/18 11:30 Dose: 6 units Ipratropium [place] (Atrovent Neb 0.5mg/2.5ml) 0.5 mg HHN Q2HR PRN PRN Reason: Shortness of Breath or Wheeze Stop: 01/14/19 01:40 Lorazepam (Ativan) 1 mg PO Q6HR [facility]; Protocol PRN Reason: Agitation Stop: 01/14/19 21:42 Last Admin: 11/18/18 08:49 Dose: 1 mg Pantoprazole Sodium (Protonix) 40 mg IVP DAILY [facility] Stop: 01/14/19 08:59 Last Admin: 11/18/18 08:53 Dose: 40 mg Pioglitazone HCl (Actos) 30 mg PO QDAC [facility] Stop: 01/14/19 07:29 Last Admin: 11/18/18 06:43 Dose: 30 mg Potassium Chloride (Klor-Con) 20 meq PO DAILY [facility] Stop: 01/15/19 17:59 Last Admin: 11/18/18 08:52 Dose: 20 meq Trazodone HCl (Desyrel) 50 mg PO HS [facility]; Protocol Stop: 01/14/19 20:59 Last Admin: 11/17/18 20:14 Dose: 50 mg Vitamin B Complex/Vit C/Folic Acid (Vitamin B Complex W/Vitamin C) 1 tab PO DAILY [facility] Stop: 01/14/19 08:59 Last Admin: 11/18/18 08:54 Dose: 1 tab Zinc Sulfate (Zinc Sulfate) 220 mg PO DAILY [facility] Stop: 01/14/19 08:59 Last Admin: 11/18/18 08:53 Dose: 220 mg General: weak, alert HEENT: NC/AT, PERRLA Neck: Supple Lungs: CTAB Cardiovascular: RRR, Normal S1, Normal S2 Abdomen: soft, non-tender, non-distended Extremities: excoriation Neurological: alert, unable to follow command Internal Medicine Assmt/Plan - Assessment Assessment: Acute urinary tract infection, acute renal failure, morbidly obese, anemia, hypomagnesemia, morbid obesity, hypertension, congestive heart failure, asthma, chronic obstructive pulmonary disease, type 2 diabetes. - Plan Plan: continue iv rocephin am labs ca-125 continue current plan of care Nutritional Asmnt/Malnutr-PDOC - Dietary Evaluation Malnutrition Findings (Please click <Entered> for more info): Nutritional Asmnt/Malnutrition Start: 11/15/18 12: 21 Text: Status: Complete Freq: Protocol: Document 11/15/18 12:21 MERCEDES (Rec: 11/15/18 12:35 MERCEDES BRUSH- [id number]) Nutritional Asmnt/Malnutrition Patient General Information Nutritional Screening High Risk Diagnosis UTI & Dehydration Pertinent Medical Hx/Surgical Hx HTN, CHF, COPD, acute renal failure, type 2 diabetes Subjective Information Patient was admitted from custodial; on dialysis at time of visit. Patient crying. Current Diet Order/ Nutrition Support Cardiac Patient / S.O Not Indicated Pertinent Medications vitmain C, Lipitor, Iron, Lantus, Humalog, protonix, Vitamin B complex with C, zinc sulfate Pertinent Labs (11/14) Na 135, K 3.3, BUN 136, Cr 1.5, Mg 1.8, glucose 141- 200 Nutritional Hx/Data Height 5 ft 7 in Height (Calculated Centimeters) 170.2 Current Weight (lbs) 362 lb Weight (Calculated Kilograms) 164.2 Weight (Calculated Grams) 831511.4 [place] Body Weight 148 % [place] Body Weight 244 Body Mass Index (BMI) 56.7 Recent Weight Change No Weight Status Morbidly Obese GI Symptoms GI Symptoms None Last BM none noted since admission Difficult in: None Food Allergies No Cultural/Ethnic/Hindu Belief none indicated Usual diet at home unknown Skin Integrity/Comment: Harshal Whatley, skin tear Current %PO Good (75-100%) Estimated Nutritional Goals BEE in Kcals: Adj wt of IBW Calories/Kcals/Kg using Adj BW 91.5kg Kcals Calculated ~8864-4200 kcal/day Protein: Adj wt of IBW Protein g/k-1.2 gm/kg Protein Calculated 90-110 gm/day Fluid: ml ~7915-5395 ml/day (1 ml/kcal) Nutritional Problem 1. Problem Problem Altered nutrition related lab values related to Etiology electrolyte imbalance and hyperglycemia aeb Signs/Symptoms: Na 135, K 3.3, mg 1.8, glucose 141-200 Intervention/Recommendation Comments 1. Consider modifying diet to 60 gm CCHO. No need for renal diet at this time due to hypokalemia, no need for low potassium diet. Check phosphorus level to determine need for dietary phosphorus restriction. Current diet is low in sodium. Expected Outcomes/Goals Expected Outcomes/Goals Oral itnake >75% of meals, weight stable, nutrition related labs WNL F/U MR
--- NOTE | 2018-11-18 14:12 | General Progress Note ---
Subjective - Review of Systems Service Date: 11/18/18 Subjective: alert, less lower abd pain, had BM Objective - Results Result Diagrams: 11/18/18 04:35 11/18/18 04:35 Recent Labs: Laboratory Last Values WBC 5.5 Th/cmm (4.8-10.8) 11/18/18 04:35 RBC 3.16 Mil/cmm (3.80-5.10) L 11/18/18 04:35 Hgb 9.4 gm/dL (12-16) L 11/18/18 04:35 Hct 28.1 % (41.0-60) L 11/18/18 04:35 MCV 88.9 fl (81-100) 11/18/18 04:35 MCH 29.6 pg (27.0-31.0) 11/18/18 04:35 MCHC Differential 33.4 pg (28.0-36.0) 11/18/18 04:35 RDW 15.0 % (11.5-20.0) 11/18/18 04:35 Plt Count 249 Th/cmm (150-400) 11/18/18 04:35 MPV 8.6 fl 11/18/18 04:35 Neutrophils % 70.9 % (40.0-80.0) 11/18/18 04:35 Lymphocytes % 14.5 % (20.0-50.0) L 11/18/18 04:35 Monocytes % 10.1 % (2.0-10.0) H 11/18/18 04:35 Eosinophils % 3.8 % (0.0-5.0) 11/18/18 04:35 Basophils % 0.7 % (0.0-2.0) 11/18/18 04:35 Eos Smear Source URINE 11/15/18 21:30 Eos Smear Total Cells NONE SEEN (NONE SEEN) 11/15/18 21:30 PT 11.0 SECONDS (9.5-11.5) 11/14/18 21:10 INR 1.06 (0.5-1.4) 11/14/18 21:10 PTT (Actin FS) 32.2 SECONDS (26.0-38.0) 11/14/18 21:10 Sodium 140 mEq/L (136-145) 11/18/18 04:35 Potassium 3.8 mEq/L (3.5-5.1) 11/18/18 04:35 Chloride 106 mEq/L (98-107) 11/18/18 04:35 Carbon Dioxide 27.1 mEq/L (21.0-31.0) 11/18/18 04:35 Anion Gap 10.7 (7.0-16.0) 11/18/18 04:35 BUN 60 mg/dL (7-25) H 11/18/18 04:35 Creatinine 0.9 mg/dL (0.6-1.2) 11/18/18 04:35 Est GFR ( Amer) > 60.0 ml/min (>90) 11/18/18 04:35 Est GFR (Non-Af Amer) > 60.0 ml/min 11/18/18 04:35 BUN/Creatinine Ratio 66.7 11/18/18 04:35 Glucose 286 mg/dL (70-105) H 11/18/18 04:35 POC Glucose 236 MG/DL (70 - 105) H 11/18/18 11:26 Uric Acid 8.8 mg/dL (2.3-6.6) H 11/16/18 06:20 Calcium 8.6 mg/dL (8.6-10.3) 11/18/18 04:35 Phosphorus 2.9 mg/dL (2.5-5.0) 11/16/18 06:20 Magnesium 2.2 mg/dL (1.9-2.7) 11/16/18 06:20 B-Natriuretic Peptide 76.2 pg/mL (5.0-100.0) 11/14/18 21:10 TSH 2.40 uIU/ml (0.34-5.60) 11/14/18 21:10 Urine Source [place] 11/14/18 21:40 Urine Color YELLOW 11/14/18 21:40 Urine Clarity CLOUDY (CLEAR) H 11/14/18 21:40 Urine pH 6.0 (4.6 - 8.0) 11/14/18 21:40 Ur Specific [place] 1.015 (1.005-1.030) 11/14/18 21:40 Urine Protein 100 mg/dL (NEGATIVE) H 11/14/18 21:40 Urine Glucose (UA) NEGATIVE mg/dL (NEGATIVE) 11/14/18 21:40 Urine Ketones NEGATIVE mg/dL (NEGATIVE) 11/14/18 21:40 Urine Blood LARGE (NEGATIVE) H 11/14/18 21:40 Urine Nitrate NEGATIVE (NEGATIVE) 11/14/18 21:40 Urine Bilirubin NEGATIVE (NEGATIVE) 11/14/18 21:40 Urine Urobilinogen 0.2 E.U./dL (0.2 - 1.0) 11/14/18 21:40 Ur Leukocyte Esterase MODERATE (NEGATIVE) H 11/14/18 21:40 Urine RBC 5-10 /hpf (0-5) H 11/14/18 21:40 Urine WBC 25-50 /hpf (0-5) H 11/14/18 21:40 Ur Epithelial Cells FEW /lpf (FEW) 11/14/18 21:40 Urine Bacteria MANY /hpf (NONE SEEN) H 11/14/18 21:40 Urine Creatinine 35.0 mg/dl (28.0-217.0) 11/15/18 21:30 Microalb/Creat Ratio 305.9 mg/g creat (0.0-30.0) H 11/15/18 21:30 Stool Occult Blood POSITIVE (NEGATIVE) H 11/16/18 19:00 - Physical Exam Vitals and I&O: Vital Signs Temp 99 F 11/18/18 12:02 Pulse 71 11/18/18 12:02 Resp 18 11/18/18 12:02 BP 125/51 11/18/18 12:02 Pulse Ox 96 11/18/18 12:02 Intake & Output 11/17/18 11/18/18 11/18/18 18:59 06:59 18:59 Intake Total 250 Balance 250 Weight (lbs) 164.2 kg 162.84 kg Intake: Intake, IV Amount 50 cefTRIAXone 1 gm In 50 Sodium Chloride 0.9% 50 ml @ 100 mls/hr IV Q24HR [facility] Rx#:[id number] Oral 200 Other: # Voids 2 2 # Bowel Movements 2 2 Stool Characteristics Soft Soft Soft Weight Source Bedscale Bedscale Active Medications: Current Medications Acetaminophen/Hydrocodone Bitart ([place] 5mg/325mg) 1 tab PO Q8H PRN PRN Reason: Pain (Severe) Stop: 01/14/19 21:40 Last Admin: 11/18/18 08:48 Dose: 1 tab Albuterol Sulfate (Albuterol 2.5mg/3ml Neb Ud) 2.5 mg HHN Q2H PRN PRN Reason: Shortness of Breath or Wheeze Stop: 01/14/19 01:40 Ascorbic Acid (Vitamin C) 500 mg PO BID [facility] Stop: 01/14/19 08:59 Last Admin: 11/18/18 08:54 Dose: 500 mg Atorvastatin Calcium (Lipitor) 10 mg PO HS [facility]; Protocol Stop: 01/14/19 20:59 Last Admin: 11/17/18 20:13 Dose: 10 mg Bisacodyl (Dulcolax 5 Mg Ec Tab) 10 mg PO DAILY [facility] Stop: 01/16/19 14:29 Last Admin: 11/18/18 08:52 Dose: 10 mg Bupropion HCl (Wellbutrin Xl) 150 mg PO DAILY [facility]; Protocol Stop: 01/14/19 08:59 Last Admin: 11/18/18 09:02 Dose: 150 mg Buspirone HCl (Buspar) 20 mg PO BID [facility]; Protocol Stop: 01/14/19 08:59 Last Admin: 11/18/18 08:49 Dose: 20 mg Carvedilol (Coreg) 12.5 mg PO BIDWM [facility] Stop: 01/14/19 08:59 Last Admin: 11/18/18 08:53 Dose: 12.5 mg Diltiazem HCl (Cardizem Cd) 120 mg PO DAILY [facility] Stop: 01/14/19 08:59 Last Admin: 11/18/18 08:49 Dose: 120 mg Duloxetine HCl (Cymbalta) 30 mg PO DAILY [facility]; Protocol Stop: 01/14/19 08:59 Last Admin: 11/18/18 08:53 Dose: 30 mg Epoetin Amaury (Epogen) 10,000 units SUBQ TuThSa [facility] Stop: 01/14/19 15:44 Last Admin: 11/16/18 10:03 Dose: 10,000 units Ferrous Sulfate (Iron) 325 mg PO BID [facility] Stop: 01/14/19 08:59 Last Admin: 11/18/18 08:49 Dose: 325 mg Gabapentin (Neurontin) 600 mg PO BID [facility] Stop: 01/14/19 08:59 Last Admin: 11/18/18 08:49 Dose: 600 mg Ceftriaxone Sodium 1 gm/ (Sodium Chloride) 50 mls @ 100 mls/hr IV Q24HR [facility] Stop: 01/14/19 10:14 Last Admin: 11/18/18 10:25 Dose: 100 mls/hr Sodium Chloride (Nacl 0.9%) 1,000 mls @ 100 mls/hr IV .Q10H [facility] Stop: 01/14/19 15:14 Last Admin: 11/16/18 17:21 Dose: 100 mls/hr Insulin Glargine (Lantus Insulin) 54 units SUBQ HS [facility] Stop: 01/14/19 20:59 Last Admin: 11/17/18 20:14 Dose: 54 units Insulin Human Lispro (Humalog Insulin Sliding Scale) 0 units SUBQ ACHS [facility]; Protocol Stop: 01/14/19 07:29 Last Admin: 11/18/18 11:30 Dose: 6 units Ipratropium [place] (Atrovent Neb 0.5mg/2.5ml) 0.5 mg HHN Q2HR PRN PRN Reason: Shortness of Breath or Wheeze Stop: 01/14/19 01:40 Lorazepam (Ativan) 1 mg PO Q6HR PRN; Protocol PRN Reason: Agitation Stop: 01/14/19 21:42 Last Admin: 11/18/18 08:49 Dose: 1 mg Pantoprazole Sodium (Protonix) 40 mg IVP DAILY [facility] Stop: 01/14/19 08:59 Last Admin: 11/18/18 08:53 Dose: 40 mg Pioglitazone HCl (Actos) 30 mg PO QDAC [facility] Stop: 01/14/19 07:29 Last Admin: 11/18/18 06:43 Dose: 30 mg Potassium Chloride (Klor-Con) 20 meq PO DAILY [facility] Stop: 01/15/19 17:59 Last Admin: 11/18/18 08:52 Dose: 20 meq Trazodone HCl (Desyrel) 50 mg PO HS [facility]; Protocol Stop: 01/14/19 20:59 Last Admin: 11/17/18 20:14 Dose: 50 mg Vitamin B Complex/Vit C/Folic Acid (Vitamin B Complex W/Vitamin C) 1 tab PO DAILY [facility] Stop: 01/14/19 08:59 Last Admin: 11/18/18 08:54 Dose: 1 tab Zinc Sulfate (Zinc Sulfate) 220 mg PO DAILY [facility] Stop: 01/14/19 08:59 Last Admin: 11/18/18 08:53 Dose: 220 mg General: Alert, Moderate distress HEENT: Atraumatic, Mucous membr. moist/pink Neck: Supple, +2 carotid pulse wo bruit Cardiovascular: Regular rate, Normal S1, Normal S2 Lungs: Clear to auscultation Abdomen: Bowel sounds, Soft Extremities: no Edema Neurological: Sensation intact Skin: no Rash Psych/Mental Status: Mood NL Assessment/Plan - Assessment Assessment: BARRY on CKD Lower abd pain Stool OB (+) Recurrent UTI T2DM w/ CKD Ess Htn W/ CKD Right LE Cellulitis Hx Uterinne CA S/P SABIHA Morbid Obese Fecal Impaction - Plan Plan: Lab - Result Diagrams 11/16/18 06:20 11/16/18 06:20 Current Medications Acetaminophen/Hydrocodone Bitart ([place] 5mg/325mg) 1 tab PO Q8H PRN PRN Reason: Pain (Severe) Stop: 01/14/19 21:40 Last Admin: 11/16/18 06:36 Dose: 1 tab Albuterol Sulfate (Albuterol 2.5mg/3ml Neb Ud) 2.5 mg HHN Q2H PRN PRN Reason: Shortness of Breath or Wheeze Stop: 01/14/19 01:40 Ascorbic Acid (Vitamin C) 500 mg PO BID [facility] Stop: 01/14/19 08:59 Last Admin: 11/16/18 17:29 Dose: 500 mg Atorvastatin Calcium (Lipitor) 10 mg PO HS [facility]; Protocol Stop: 01/14/19 20:59 Last Admin: 11/15/18 20:24 Dose: 10 mg Bupropion HCl (Wellbutrin Xl) 150 mg PO DAILY [facility]; Protocol Stop: 01/14/19 08:59 Last Admin: 11/16/18 09:54 Dose: 150 mg Buspirone HCl (Buspar) 20 mg PO BID [facility]; Protocol Stop: 01/14/19 08:59 Last Admin: 11/16/18 17:29 Dose: 20 mg Carvedilol (Coreg) 12.5 mg PO BIDWM [facility] Stop: 01/14/19 08:59 Last Admin: 11/16/18 08:00 Dose: Not Given Diltiazem HCl (Cardizem Cd) 120 mg PO DAILY [facility] Stop: 01/14/19 08:59 Last Admin: 11/16/18 09:53 Dose: 120 mg Duloxetine HCl (Cymbalta) 30 mg PO DAILY [facility]; Protocol Stop: 01/14/19 08:59 Last Admin: 11/16/18 09:52 Dose: 30 mg Epoetin Amaury (Epogen) 10,000 units SUBQ TuThSa [facility] Stop: 01/14/19 15:44 Last Admin: 11/16/18 10:03 Dose: 10,000 units Ferrous Sulfate (Iron) 325 mg PO BID [facility] Stop: 01/14/19 08:59 Last Admin: 11/16/18 17:29 Dose: 325 mg Gabapentin (Neurontin) 600 mg PO BID [facility] Stop: 01/14/19 08:59 Last Admin: 11/16/18 17:29 Dose: 600 mg Ceftriaxone Sodium 1 gm/ (Sodium Chloride) 50 mls @ 100 mls/hr IV Q24HR [facility] Stop: 01/14/19 10:14 Last Admin: 11/16/18 12:51 Dose: 100 mls/hr Sodium Chloride (Nacl 0.9%) 1,000 mls @ 100 mls/hr IV .Q10H [facility] Stop: 01/14/19 15:14 Last Admin: 11/16/18 17:21 Dose: 100 mls/hr Insulin Glargine (Lantus Insulin) 54 units SUBQ HS [facility] Stop: 01/14/19 20:59 Last Admin: 11/15/18 20:25 Dose: 54 units Insulin Human Lispro (Humalog Insulin Sliding Scale) 0 units SUBQ ACHS [facility]; Protocol Stop: 01/14/19 07:29 Last Admin: 11/16/18 17:28 Dose: 6 units Ipratropium [place] (Atrovent Neb 0.5mg/2.5ml) 0.5 mg HHN Q2HR PRN PRN Reason: Shortness of Breath or Wheeze Stop: 01/14/19 01:40 Lorazepam (Ativan) 1 mg PO Q6HR [facility]; Protocol PRN Reason: Agitation Stop: 01/14/19 21:42 Last Admin: 11/16/18 13:33 Dose: 1 mg Pantoprazole Sodium (Protonix) 40 mg IVP DAILY [facility] Stop: 01/14/19 08:59 Last Admin: 11/16/18 09:54 Dose: 40 mg Pioglitazone HCl (Actos) 30 mg PO QDAC [facility] Stop: 01/14/19 07:29 Last Admin: 11/16/18 06:36 Dose: 30 mg Trazodone HCl (Desyrel) 50 mg PO HS [facility]; Protocol Stop: 01/14/19 20:59 Last Admin: 11/15/18 20:24 Dose: 50 mg Vitamin B Complex/Vit C/Folic Acid (Vitamin B Complex W/Vitamin C) 1 tab PO DAILY [facility] Stop: 01/14/19 08:59 Last Admin: 11/16/18 09:52 Dose: 1 tab Zinc Sulfate (Zinc Sulfate) 220 mg PO DAILY [facility] Stop: 01/14/19 08:59 Last Admin: 11/16/18 09:52 Dose: 220 mg Lab - Result Diagrams 11/18/18 04:35 11/18/18 04:35 Kidney fnc better w/ BUN/CR 60/0.9 replace K Stool for OB (+) f/u electrolytes Nutritional Asmnt/Malnutr-PDOC - Dietary Evaluation Malnutrition Findings (Please click <Entered> for more info): Nutritional Asmnt/Malnutrition Start: 11/15/18 12: 21 Text: Status: Complete Freq: Protocol: Document 11/15/18 12:21 [email or web address] (Rec: 11/15/18 12:35 MERCEDES [id number]) Nutritional Asmnt/Malnutrition Patient General Information Nutritional Screening High Risk Diagnosis UTI & Dehydration Pertinent Medical Hx/Surgical Hx HTN, CHF, COPD, acute renal failure, type 2 diabetes Subjective Information Patient was admitted from jail; on dialysis at time of visit. Patient crying. Current Diet Order/ Nutrition Support Cardiac Patient / S.O Not Indicated Pertinent Medications vitmain C, Lipitor, Iron, Lantus, Humalog, protonix, Vitamin B complex with C, zinc sulfate Pertinent Labs (11/14) Na 135, K 3.3, BUN 136, Cr 1.5, Mg 1.8, glucose 141- 200 Nutritional Hx/Data Height 1.7 m Height (Calculated Centimeters) 170.2 Current Weight (lbs) 164.2 kg Weight (Calculated Kilograms) 164.2 Weight (Calculated Grams) 228494.4 Ney Body Weight 148 % Ney Body Weight 244 Body Mass Index (BMI) 56.7 Recent Weight Change No Weight Status Morbidly Obese GI Symptoms GI Symptoms None Last BM none noted since admission Difficult in: None Food Allergies No Cultural/Ethnic/Temple Belief none indicated Usual diet at home unknown Skin Integrity/Comment: Harshal 14, skin tear Current %PO Good (75-100%) Estimated Nutritional Goals BEE in Kcals: Adj wt of IBW Calories/Kcals/Kg using Adj BW 91.5kg Kcals Calculated ~3353-7776 kcal/day Protein: Adj wt of IBW Protein g/k-1.2 gm/kg Protein Calculated 90-110 gm/day Fluid: ml ~4988-6295 ml/day (1 ml/kcal) Nutritional Problem 1. Problem Problem Altered nutrition related lab values related to Etiology electrolyte imbalance and hyperglycemia aeb Signs/Symptoms: Na 135, K 3.3, mg 1.8, glucose 141-200 Intervention/Recommendation Comments 1. Consider modifying diet to 60 gm CCHO. No need for renal diet at this time due to hypokalemia, no need for low potassium diet. Check phosphorus level to determine need for dietary phosphorus restriction. Current diet is low in sodium. Expected Outcomes/Goals Expected Outcomes/Goals Oral itnake >75% of meals, weight stable, nutrition related labs WNL F/U MR
[2018-11-18] MEDS ORDERED: Magnesium Citrate 1.75 GM/300 mL Bottle PO ONE (14:37)
--- NOTE | 2018-11-18 15:47 | GI Progress Note ---
Subjective - Review of Systems Service Date: 11/18/18 Events since last encounter: Pt had a large BM today and felt better Objective - Results Result Diagrams: 11/18/18 04:35 11/18/18 04:35 Recent Labs: Laboratory Last Values WBC 5.5 Th/cmm (4.8-10.8) 11/18/18 04:35 RBC 3.16 Mil/cmm (3.80-5.10) L 11/18/18 04:35 Hgb 9.4 gm/dL (12-16) L 11/18/18 04:35 Hct 28.1 % (41.0-60) L 11/18/18 04:35 MCV 88.9 fl (81-100) 11/18/18 04:35 MCH 29.6 pg (27.0-31.0) 11/18/18 04:35 MCHC Differential 33.4 pg (28.0-36.0) 11/18/18 04:35 RDW 15.0 % (11.5-20.0) 11/18/18 04:35 Plt Count 249 Th/cmm (150-400) 11/18/18 04:35 MPV 8.6 fl 11/18/18 04:35 Neutrophils % 70.9 % (40.0-80.0) 11/18/18 04:35 Lymphocytes % 14.5 % (20.0-50.0) L 11/18/18 04:35 Monocytes % 10.1 % (2.0-10.0) H 11/18/18 04:35 Eosinophils % 3.8 % (0.0-5.0) 11/18/18 04:35 Basophils % 0.7 % (0.0-2.0) 11/18/18 04:35 Eos Smear Source URINE 11/15/18 21:30 Eos Smear Total Cells NONE SEEN (NONE SEEN) 11/15/18 21:30 PT 11.0 SECONDS (9.5-11.5) 11/14/18 21:10 INR 1.06 (0.5-1.4) 11/14/18 21:10 PTT (Actin FS) 32.2 SECONDS (26.0-38.0) 11/14/18 21:10 Sodium 140 mEq/L (136-145) 11/18/18 04:35 Potassium 3.8 mEq/L (3.5-5.1) 11/18/18 04:35 Chloride 106 mEq/L (98-107) 11/18/18 04:35 Carbon Dioxide 27.1 mEq/L (21.0-31.0) 11/18/18 04:35 Anion Gap 10.7 (7.0-16.0) 11/18/18 04:35 BUN 60 mg/dL (7-25) H 11/18/18 04:35 Creatinine 0.9 mg/dL (0.6-1.2) 11/18/18 04:35 Est GFR ( Amer) > 60.0 ml/min (>90) 11/18/18 04:35 Est GFR (Non-Af Amer) > 60.0 ml/min 11/18/18 04:35 BUN/Creatinine Ratio 66.7 11/18/18 04:35 Glucose 286 mg/dL (70-105) H 11/18/18 04:35 POC Glucose 236 MG/DL (70 - 105) H 11/18/18 11:26 Uric Acid 8.8 mg/dL (2.3-6.6) H 11/16/18 06:20 Calcium 8.6 mg/dL (8.6-10.3) 11/18/18 04:35 Phosphorus 2.9 mg/dL (2.5-5.0) 11/16/18 06:20 Magnesium 2.2 mg/dL (1.9-2.7) 11/16/18 06:20 B-Natriuretic Peptide 76.2 pg/mL (5.0-100.0) 11/14/18 21:10 TSH 2.40 uIU/ml (0.34-5.60) 11/14/18 21:10 Urine Source [place] 11/14/18 21:40 Urine Color YELLOW 11/14/18 21:40 Urine Clarity CLOUDY (CLEAR) H 11/14/18 21:40 Urine pH 6.0 (4.6 - 8.0) 11/14/18 21:40 Ur Specific [place] 1.015 (1.005-1.030) 11/14/18 21:40 Urine Protein 100 mg/dL (NEGATIVE) H 11/14/18 21:40 Urine Glucose (UA) NEGATIVE mg/dL (NEGATIVE) 11/14/18 21:40 Urine Ketones NEGATIVE mg/dL (NEGATIVE) 11/14/18 21:40 Urine Blood LARGE (NEGATIVE) H 11/14/18 21:40 Urine Nitrate NEGATIVE (NEGATIVE) 11/14/18 21:40 Urine Bilirubin NEGATIVE (NEGATIVE) 11/14/18 21:40 Urine Urobilinogen 0.2 E.U./dL (0.2 - 1.0) 11/14/18 21:40 Ur Leukocyte Esterase MODERATE (NEGATIVE) H 11/14/18 21:40 Urine RBC 5-10 /hpf (0-5) H 11/14/18 21:40 Urine WBC 25-50 /hpf (0-5) H 11/14/18 21:40 Ur Epithelial Cells FEW /lpf (FEW) 11/14/18 21:40 Urine Bacteria MANY /hpf (NONE SEEN) H 11/14/18 21:40 Urine Creatinine 35.0 mg/dl (28.0-217.0) 11/15/18 21:30 Microalb/Creat Ratio 305.9 mg/g creat (0.0-30.0) H 11/15/18 21:30 Stool Occult Blood POSITIVE (NEGATIVE) H 11/16/18 19:00 - Physical Exam Vitals and I&O: Vital Signs Temp 99 F 11/18/18 12:02 Pulse 71 11/18/18 12:02 Resp 18 11/18/18 12:02 BP 125/51 11/18/18 12:02 Pulse Ox 96 11/18/18 12:02 Intake & Output 11/17/18 11/18/18 11/18/18 18:59 06:59 18:59 Intake Total 250 Balance 250 Weight (lbs) 164.2 kg 162.84 kg Intake: Intake, IV Amount 50 cefTRIAXone 1 gm In 50 Sodium Chloride 0.9% 50 ml @ 100 mls/hr IV Q24HR [facility] Rx#:[id number] Oral 200 Other: # Voids 2 2 # Bowel Movements 2 2 Stool Characteristics Soft Soft Soft Weight Source Bedscale Bedscale Active Medications: Current Medications Acetaminophen/Hydrocodone Bitart ([place] 5mg/325mg) 1 tab PO Q8H PRN PRN Reason: Pain (Severe) Stop: 01/14/19 21:40 Last Admin: 11/18/18 08:48 Dose: 1 tab Albuterol Sulfate (Albuterol 2.5mg/3ml Neb Ud) 2.5 mg HHN Q2H PRN PRN Reason: Shortness of Breath or Wheeze Stop: 01/14/19 01:40 Ascorbic Acid (Vitamin C) 500 mg PO BID [facility] Stop: 01/14/19 08:59 Last Admin: 11/18/18 08:54 Dose: 500 mg Atorvastatin Calcium (Lipitor) 10 mg PO HS [facility]; Protocol Stop: 01/14/19 20:59 Last Admin: 11/17/18 20:13 Dose: 10 mg Bisacodyl (Dulcolax 5 Mg Ec Tab) 10 mg PO DAILY [facility] Stop: 01/16/19 14:29 Last Admin: 11/18/18 08:52 Dose: 10 mg Bupropion HCl (Wellbutrin Xl) 150 mg PO DAILY [facility]; Protocol Stop: 01/14/19 08:59 Last Admin: 11/18/18 09:02 Dose: 150 mg Buspirone HCl (Buspar) 20 mg PO BID [facility]; Protocol Stop: 01/14/19 08:59 Last Admin: 11/18/18 08:49 Dose: 20 mg Carvedilol (Coreg) 12.5 mg PO BIDWM [facility] Stop: 01/14/19 08:59 Last Admin: 11/18/18 08:53 Dose: 12.5 mg Diltiazem HCl (Cardizem Cd) 120 mg PO DAILY [facility] Stop: 01/14/19 08:59 Last Admin: 11/18/18 08:49 Dose: 120 mg Duloxetine HCl (Cymbalta) 30 mg PO DAILY [facility]; Protocol Stop: 01/14/19 08:59 Last Admin: 11/18/18 08:53 Dose: 30 mg Epoetin Amaury (Epogen) 10,000 units SUBQ TuThSa [facility] Stop: 01/14/19 15:44 Last Admin: 11/16/18 10:03 Dose: 10,000 units Ferrous Sulfate (Iron) 325 mg PO BID [facility] Stop: 01/14/19 08:59 Last Admin: 11/18/18 08:49 Dose: 325 mg Gabapentin (Neurontin) 600 mg PO BID [facility] Stop: 01/14/19 08:59 Last Admin: 11/18/18 08:49 Dose: 600 mg Ceftriaxone Sodium 1 gm/ (Sodium Chloride) 50 mls @ 100 mls/hr IV Q24HR [facility] Stop: 01/14/19 10:14 Last Admin: 11/18/18 10:25 Dose: 100 mls/hr Sodium Chloride (Nacl 0.9%) 1,000 mls @ 100 mls/hr IV .Q10H [facility] Stop: 01/14/19 15:14 Last Admin: 11/16/18 17:21 Dose: 100 mls/hr Insulin Glargine (Lantus Insulin) 54 units SUBQ HS [facility] Stop: 01/14/19 20:59 Last Admin: 11/17/18 20:14 Dose: 54 units Insulin Human Lispro (Humalog Insulin Sliding Scale) 0 units SUBQ ACHS [facility]; Protocol Stop: 01/14/19 07:29 Last Admin: 11/18/18 11:30 Dose: 6 units Ipratropium [place] (Atrovent Neb 0.5mg/2.5ml) 0.5 mg HHN Q2HR PRN PRN Reason: Shortness of Breath or Wheeze Stop: 01/14/19 01:40 Lorazepam (Ativan) 1 mg PO Q6HR PRN; Protocol PRN Reason: Agitation Stop: 01/14/19 21:42 Last Admin: 11/18/18 08:49 Dose: 1 mg Pantoprazole Sodium (Protonix) 40 mg IVP DAILY [facility] Stop: 01/14/19 08:59 Last Admin: 11/18/18 08:53 Dose: 40 mg Pioglitazone HCl (Actos) 30 mg PO QDAC [facility] Stop: 01/14/19 07:29 Last Admin: 11/18/18 06:43 Dose: 30 mg Potassium Chloride (Klor-Con) 20 meq PO DAILY [facility] Stop: 01/15/19 17:59 Last Admin: 11/18/18 08:52 Dose: 20 meq Trazodone HCl (Desyrel) 50 mg PO HS [facility]; Protocol Stop: 01/14/19 20:59 Last Admin: 11/17/18 20:14 Dose: 50 mg Vitamin B Complex/Vit C/Folic Acid (Vitamin B Complex W/Vitamin C) 1 tab PO DAILY [facility] Stop: 01/14/19 08:59 Last Admin: 11/18/18 08:54 Dose: 1 tab Zinc Sulfate (Zinc Sulfate) 220 mg PO DAILY [facility] Stop: 01/14/19 08:59 Last Admin: 11/18/18 08:53 Dose: 220 mg General: Alert, Moderate distress HEENT: Atraumatic, Mucous membr. moist/pink Neck: Supple, Thyromegaly, +2 carotid pulse wo bruit Cardiovascular: Regular rate, Normal S1, Normal S2 Lungs: Clear to auscultation Abdomen: Bowel sounds, Soft Extremities: no Edema Neurological: Sensation intact Skin: no Rash Psych/Mental Status: Mood NL Assessment/Plan - Assessment Assessment: 1. Abdominal Pain 2, ESRD 3. Probable IBS-C -continue with supportive care and management -bowel regimen miralax daily -stool softeners -will follow
[2018-11-18] MEDS: Epoetin Alfa 20000 Units/mL Vial SUBQ SCH (16:42)
[2018-11-18] MEDS: Meropenem 1 GM in Sodium Chloride 0.9% 100 ML IV SCH (17:09)
[2018-11-18] MEDS: Insulin Glargine 100 units/ml 10ml Vial SUBQ SCH (21:11)
[2018-11-18] MEDS: Atorvastatin Calcium 10 MG TAB PO SCH (21:11)
[2018-11-19] MEDS: Meropenem 1 GM in Sodium Chloride 0.9% 100 ML IV SCH ×2 (06:07→17:25)
[2018-11-19] MEDS: Hydrocodone/APAP 5mg/325mg Tab PO PRN (06:43)
[2018-11-19] MEDS: INSULIN LISPRO SLIDING SCALE 100 UNITS/ML UNIT SUBQ SCH ×4 (06:45→21:02)
[2018-11-19 06:55] LABS: HEMATOCRIT 32.6 % (41.0-60); HEMOGLOBIN 10.7 gm/dL (12-16); MEAN CELL VOLUME 89.6 fl (81-100); MEAN CORPUSCULAR HEMOGLOBIN 29.4 pg (27.0-31.0); MEAN CORPUSCULAR HGB CONC 32.8 pg (28.0-36.0); MEAN PLATELET VOLUME 9.6 fl; PLATELET COUNT 189 Th/cmm (150-400); RED BLOOD COUNT 3.64 Mil/cmm (3.80-5.10); RED CELL DISTRIBUTION WIDTH 15.2 % (11.5-20.0); WHITE BLOOD COUNT 10.6 Th/cmm (4.8-10.8)
[2018-11-19 07:20] LABS: ANION GAP 13.1 (7.0-16.0); BUN - UREA NITROGEN 43 mg/dL (7-25); CALCIUM SERUM 9.1 mg/dL (8.6-10.3); CARBON DIOXIDE 25.9 mEq/L (21.0-31.0); CHLORIDE 106 mEq/L (98-107); GFR AFRICAN-AMERICAN > 60.0 ml/min (>90); GFR NON AFRICAN-AMERICAN > 60.0 ml/min; GLUCOSE 258 mg/dL (70-105); SODIUM SERUM 141 mEq/L (136-145)
[2018-11-19 07:47] LABS: BAND NEUTROPHILE 2 % (0-10); BASOPHIL 0 % (0-3); EOSINOPHIL 1 % (0-5); LYMPHOCYTE 12 % (20-50); MONOCYTE 5 % (2-10); NEUTROPHILS 80 % (40-80)
[2018-11-19] MEDS: Vitamin B Complex w/Vitamin C Tab PO SCH (09:20)
[2018-11-19] MEDS: Potassium Chloride 20 mEq ER Tab PO SCH (09:20)
[2018-11-19] MEDS: buPROPion XL 150 mg T 24 H PO SCH (09:21)
[2018-11-19] MEDS: Ferrous Sulfate 325 MG TAB PO SCH ×2 (09:21→17:25)
[2018-11-19] MEDS: Diltiazem CD 120 mg 24H PO SCH (09:22)
--- NOTE | 2018-11-19 12:29 | Internal Medicine Prog Note ---
Internal Medicine Subjective - Subjective Service Date: 11/19/18 (stool ob positive, urine culture +e.coli, spoke to patients POA Delayne and updates given) Patient seen and examined:: without staff Patient is:: asleep Per staff patient has:: tolerating meds Internal Medicine Objective - Results Result Diagrams: 11/19/18 06:30 11/19/18 06:30 Recent Labs: Laboratory Last Values WBC 10.6 Th/cmm (4.8-10.8) 11/19/18 06:30 RBC 3.64 Mil/cmm (3.80-5.10) L 11/19/18 06:30 Hgb 10.7 gm/dL (12-16) L 11/19/18 06:30 Hct 32.6 % (41.0-60) L 11/19/18 06:30 MCV 89.6 fl (81-100) 11/19/18 06:30 MCH 29.4 pg (27.0-31.0) 11/19/18 06:30 MCHC Differential 32.8 pg (28.0-36.0) 11/19/18 06:30 RDW 15.2 % (11.5-20.0) 11/19/18 06:30 Plt Count 189 Th/cmm (150-400) 11/19/18 06:30 MPV 9.6 fl 11/19/18 06:30 Add Manual Diff YES 11/19/18 06:30 Neutrophils % 70.9 % (40.0-80.0) 11/18/18 04:35 Band Neutrophils % 2 % (0-10) 11/19/18 06:30 Lymphocytes % 14.5 % (20.0-50.0) L 11/18/18 04:35 Monocytes % 10.1 % (2.0-10.0) H 11/18/18 04:35 Eosinophils % 3.8 % (0.0-5.0) 11/18/18 04:35 Basophils % 0.7 % (0.0-2.0) 11/18/18 04:35 Neutrophils (Manual) 80 % (40-80) 11/19/18 06:30 Lymphocytes 12 % (20-50) L 11/19/18 06:30 Monocytes 5 % (2-10) 11/19/18 06:30 Eosinophils 1 % (0-5) 11/19/18 06:30 Basophils 0 % (0-3) 11/19/18 06:30 Platelet Estimate (NORMAL) 11/19/18 06:30 RBC Morph Micro Appear (NORMAL) 11/19/18 06:30 Eos Smear Source URINE 11/15/18 21:30 Eos Smear Total Cells NONE SEEN (NONE SEEN) 11/15/18 21:30 PT 11.0 SECONDS (9.5-11.5) 11/14/18 21:10 INR 1.06 (0.5-1.4) 11/14/18 21:10 PTT (Actin FS) 32.2 SECONDS (26.0-38.0) 11/14/18 21:10 Sodium 141 mEq/L (136-145) 11/19/18 06:30 Potassium 4.0 mEq/L (3.5-5.1) 11/19/18 06:30 Chloride 106 mEq/L (98-107) 11/19/18 06:30 Carbon Dioxide 25.9 mEq/L (21.0-31.0) 11/19/18 06:30 Anion Gap 13.1 (7.0-16.0) 11/19/18 06:30 BUN 43 mg/dL (7-25) H 11/19/18 06:30 Creatinine 1.0 mg/dL (0.6-1.2) 11/19/18 06:30 Est GFR ( Amer) > 60.0 ml/min (>90) 11/19/18 06:30 Est GFR (Non-Af Amer) > 60.0 ml/min 11/19/18 06:30 BUN/Creatinine Ratio 43.0 11/19/18 06:30 Glucose 258 mg/dL (70-105) H 11/19/18 06:30 POC Glucose 258 MG/DL (70 - 105) H 11/19/18 11:42 Uric Acid 8.8 mg/dL (2.3-6.6) H 11/16/18 06:20 Calcium 9.1 mg/dL (8.6-10.3) 11/19/18 06:30 Phosphorus 2.9 mg/dL (2.5-5.0) 11/16/18 06:20 Magnesium 2.2 mg/dL (1.9-2.7) 11/16/18 06:20 B-Natriuretic Peptide 76.2 pg/mL (5.0-100.0) 11/14/18 21:10 TSH 2.40 uIU/ml (0.34-5.60) 11/14/18 21:10 Urine Source [place] 11/14/18 21:40 Urine Color YELLOW 11/14/18 21:40 Urine Clarity CLOUDY (CLEAR) H 11/14/18 21:40 Urine pH 6.0 (4.6 - 8.0) 11/14/18 21:40 Ur Specific [place] 1.015 (1.005-1.030) 11/14/18 21:40 Urine Protein 100 mg/dL (NEGATIVE) H 11/14/18 21:40 Urine Glucose (UA) NEGATIVE mg/dL (NEGATIVE) 11/14/18 21:40 Urine Ketones NEGATIVE mg/dL (NEGATIVE) 11/14/18 21:40 Urine Blood LARGE (NEGATIVE) H 11/14/18 21:40 Urine Nitrate NEGATIVE (NEGATIVE) 11/14/18 21:40 Urine Bilirubin NEGATIVE (NEGATIVE) 11/14/18 21:40 Urine Urobilinogen 0.2 E.U./dL (0.2 - 1.0) 11/14/18 21:40 Ur Leukocyte Esterase MODERATE (NEGATIVE) H 11/14/18 21:40 Urine RBC 5-10 /hpf (0-5) H 11/14/18 21:40 Urine WBC 25-50 /hpf (0-5) H 11/14/18 21:40 Ur Epithelial Cells FEW /lpf (FEW) 11/14/18 21:40 Urine Bacteria MANY /hpf (NONE SEEN) H 11/14/18 21:40 Urine Creatinine 35.0 mg/dl (28.0-217.0) 11/15/18 21:30 Microalb/Creat Ratio 305.9 mg/g creat (0.0-30.0) H 11/15/18 21:30 Stool Occult Blood POSITIVE (NEGATIVE) H 11/16/18 19:00 - Physical Exam Vitals and I&O: Vital Signs Temp 98.4 F 11/19/18 12:00 Pulse 69 11/19/18 12:00 Resp 20 11/19/18 12:00 BP 116/61 11/19/18 12:00 Pulse Ox 95 11/19/18 12:00 Intake & Output 11/18/18 11/19/18 11/19/18 18:59 06:59 18:59 Intake Total 250 Output Total 2 Balance 250 -2 Weight (lbs) 359 lb 359 lb Intake: Intake, IV Amount 100 Meropenem 1 gm In Sodium 100 Chloride 0.9% 100 ml @ 100 mls/hr IV Q12H [facility] Rx #:[id number] Oral 150 Output: Urine 2 Other: # Voids 3 # Bowel Movements 1 0 Stool Characteristics Soft Soft Weight Source Bedscale Bedscale Active Medications: Current Medications Acetaminophen/Hydrocodone Bitart ([place] 5mg/325mg) 1 tab PO Q8H PRN PRN Reason: Pain (Severe) Stop: 01/14/19 21:40 Last Admin: 11/19/18 06:43 Dose: 1 tab Albuterol Sulfate (Albuterol 2.5mg/3ml Neb Ud) 2.5 mg HHN Q2H PRN PRN Reason: Shortness of Breath or Wheeze Stop: 01/14/19 01:40 Ascorbic Acid (Vitamin C) 500 mg PO BID [facility] Stop: 01/14/19 08:59 Last Admin: 11/19/18 09:20 Dose: 500 mg Atorvastatin Calcium (Lipitor) 10 mg PO HS [facility]; Protocol Stop: 01/14/19 20:59 Last Admin: 11/18/18 21:11 Dose: 10 mg Bisacodyl (Dulcolax 5 Mg Ec Tab) 10 mg PO DAILY [facility] Stop: 01/16/19 14:29 Last Admin: 11/19/18 09:20 Dose: 10 mg Bupropion HCl (Wellbutrin Xl) 150 mg PO DAILY [facility]; Protocol Stop: 01/14/19 08:59 Last Admin: 11/19/18 09:21 Dose: 150 mg Carvedilol (Coreg) 12.5 mg PO BIDWM [facility] Stop: 01/14/19 08:59 Last Admin: 11/19/18 09:22 Dose: 12.5 mg Diltiazem HCl (Cardizem Cd) 120 mg PO DAILY [facility] Stop: 01/14/19 08:59 Last Admin: 11/19/18 09:22 Dose: Not Given Duloxetine HCl (Cymbalta) 30 mg PO DAILY [facility]; Protocol Stop: 01/14/19 08:59 Last Admin: 11/19/18 09:20 Dose: 30 mg Epoetin Amaury (Epogen) 10,000 units SUBQ TuThSa [facility] Stop: 01/14/19 15:44 Last Admin: 11/18/18 16:42 Dose: 10,000 units Ferrous Sulfate (Iron) 325 mg PO BID [facility] Stop: 01/14/19 08:59 Last Admin: 11/19/18 09:21 Dose: 325 mg Gabapentin (Neurontin) 600 mg PO BID [facility] Stop: 01/14/19 08:59 Last Admin: 11/19/18 09:20 Dose: 600 mg Sodium Chloride (Nacl 0.9%) 1,000 mls @ 100 mls/hr IV .Q10H [facility] Stop: 01/14/19 15:14 Last Admin: 11/16/18 17:21 Dose: 100 mls/hr Meropenem 1 gm/ Sodium (Chloride) 100 mls @ 100 mls/hr IV Q12H [facility] Stop: 01/17/19 16:59 Last Admin: 11/19/18 06:07 Dose: 100 mls/hr Insulin Glargine (Lantus Insulin) 54 units SUBQ HS [facility] Stop: 01/14/19 20:59 Last Admin: 11/18/18 21:11 Dose: 54 units Insulin Human Lispro (Humalog Insulin Sliding Scale) 0 units SUBQ ACHS [facility]; Protocol Stop: 01/14/19 07:29 Last Admin: 11/19/18 12:04 Dose: 9 units Ipratropium [place] (Atrovent Neb 0.5mg/2.5ml) 0.5 mg HHN Q2HR PRN PRN Reason: Shortness of Breath or Wheeze Stop: 01/14/19 01:40 Lorazepam (Ativan) 1 mg PO Q6HR PRN; Protocol PRN Reason: Agitation Stop: 01/14/19 21:42 Last Admin: 11/19/18 06:42 Dose: 1 mg Miscellaneous (Misc Oral Tab) 2 tab PO BID [facility]; Protocol Stop: 01/14/19 08:59 Last Admin: 11/19/18 09:21 Dose: 2 tab Pantoprazole Sodium (Protonix) 40 mg IVP DAILY [facility] Stop: 01/14/19 08:59 Last Admin: 11/19/18 09:21 Dose: 40 mg Pioglitazone HCl (Actos) 30 mg PO QDAC [facility] Stop: 01/14/19 07:29 Last Admin: 11/19/18 06:42 Dose: 30 mg Potassium Chloride (Klor-Con) 20 meq PO DAILY [facility] Stop: 01/15/19 17:59 Last Admin: 11/19/18 09:20 Dose: 20 meq Trazodone HCl (Desyrel) 50 mg PO HS [facility]; Protocol Stop: 01/14/19 20:59 Last Admin: 11/18/18 21:11 Dose: 50 mg Vitamin B Complex/Vit C/Folic Acid (Vitamin B Complex W/Vitamin C) 1 tab PO DAILY [facility] Stop: 01/14/19 08:59 Last Admin: 11/19/18 09:20 Dose: 1 tab Zinc Sulfate (Zinc Sulfate) 220 mg PO DAILY [facility] Stop: 01/14/19 08:59 Last Admin: 11/19/18 09:20 Dose: 220 mg General: weak, alert HEENT: NC/AT, PERRLA Neck: Supple Lungs: CTAB Cardiovascular: RRR, Normal S1, Normal S2 Abdomen: soft, non-tender, non-distended Extremities: excoriation Neurological: alert, unable to follow command Internal Medicine Assmt/Plan - Assessment Assessment: Acute urinary tract infection with ecoli, stool ob +, acute renal failure, morbidly obese, anemia, hypomagnesemia, morbid obesity, hypertension, congestive heart failure, asthma, chronic obstructive pulmonary disease, type 2 diabetes. - Plan Plan: continue ivabx monitor h/h closely gi consulted dc planning to SNF once cleared by all consultants continue current plan of care Nutritional Asmnt/Malnutr-PDOC - Dietary Evaluation Malnutrition Findings (Please click <Entered> for more info): Nutritional Asmnt/Malnutrition Start: 11/15/18 12: 21 Text: Status: Complete Freq: Protocol: Document 11/15/18 12:21 MERCEDES (Rec: 11/15/18 12:35 MERCEDES [id number]) Nutritional Asmnt/Malnutrition Patient General Information Nutritional Screening High Risk Diagnosis UTI & Dehydration Pertinent Medical Hx/Surgical Hx HTN, CHF, COPD, acute renal failure, type 2 diabetes Subjective Information [facility]; on dialysis at time of visit. Patient crying. Current Diet Order/ Nutrition Support Cardiac Patient / S.O Not Indicated Pertinent Medications vitmain C, Lipitor, Iron, Lantus, Humalog, protonix, Vitamin B complex with C, zinc sulfate Pertinent Labs (11/14) Na 135, K 3.3, BUN 136, Cr 1.5, Mg 1.8, glucose 141- 200 Nutritional Hx/Data Height 5 ft 7 in Height (Calculated Centimeters) 170.2 Current Weight (lbs) 362 lb Weight (Calculated Kilograms) 164.2 Weight (Calculated Grams) 978687.4 [place] Body Weight 148 % [place] Body Weight 244 Body Mass Index (BMI) 56.7 Recent Weight Change No Weight Status Morbidly Obese GI Symptoms GI Symptoms None Last BM none noted since admission Difficult in: None Food Allergies No Cultural/Ethnic/Sabianist Belief none indicated Usual diet at home unknown Skin Integrity/Comment: [place] 14, skin tear Current %PO Good (75-100%) Estimated Nutritional Goals BEE in Kcals: Adj wt of IBW Calories/Kcals/Kg using Adj BW 91.5kg Kcals Calculated ~1323-3727 kcal/day Protein: Adj wt of IBW Protein g/k-1.2 gm/kg Protein Calculated 90-110 gm/day Fluid: ml ~1970-0850 ml/day (1 ml/kcal) Nutritional Problem 1. Problem Problem Altered nutrition related lab values related to Etiology electrolyte imbalance and hyperglycemia aeb Signs/Symptoms: Na 135, K 3.3, mg 1.8, glucose 141-200 Intervention/Recommendation Comments 1. Consider modifying diet to 60 gm CCHO. No need for renal diet at this time due to hypokalemia, no need for low potassium diet. Check phosphorus level to determine need for dietary phosphorus restriction. Current diet is low in sodium. Expected Outcomes/Goals Expected Outcomes/Goals Oral itnake >75% of meals, weight stable, nutrition related labs WNL F/U MR 11/18-
--- NOTE | 2018-11-19 14:02 | General Progress Note ---
Subjective - Review of Systems Service Date: 11/19/18 Subjective: Patient has no complaint of chest pain shortness of breath abdominal pain Objective - Results Result Diagrams: 11/19/18 06:30 11/19/18 06:30 Recent Labs: Laboratory Last Values WBC 10.6 Th/cmm (4.8-10.8) 11/19/18 06:30 RBC 3.64 Mil/cmm (3.80-5.10) L 11/19/18 06:30 Hgb 10.7 gm/dL (12-16) L 11/19/18 06:30 Hct 32.6 % (41.0-60) L 11/19/18 06:30 MCV 89.6 fl (81-100) 11/19/18 06:30 MCH 29.4 pg (27.0-31.0) 11/19/18 06:30 MCHC Differential 32.8 pg (28.0-36.0) 11/19/18 06:30 RDW 15.2 % (11.5-20.0) 11/19/18 06:30 Plt Count 189 Th/cmm (150-400) 11/19/18 06:30 MPV 9.6 fl 11/19/18 06:30 Add Manual Diff YES 11/19/18 06:30 Neutrophils % 70.9 % (40.0-80.0) 11/18/18 04:35 Band Neutrophils % 2 % (0-10) 11/19/18 06:30 Lymphocytes % 14.5 % (20.0-50.0) L 11/18/18 04:35 Monocytes % 10.1 % (2.0-10.0) H 11/18/18 04:35 Eosinophils % 3.8 % (0.0-5.0) 11/18/18 04:35 Basophils % 0.7 % (0.0-2.0) 11/18/18 04:35 Neutrophils (Manual) 80 % (40-80) 11/19/18 06:30 Lymphocytes 12 % (20-50) L 11/19/18 06:30 Monocytes 5 % (2-10) 11/19/18 06:30 Eosinophils 1 % (0-5) 11/19/18 06:30 Basophils 0 % (0-3) 11/19/18 06:30 Platelet Estimate (NORMAL) 11/19/18 06:30 RBC Morph Micro Appear (NORMAL) 11/19/18 06:30 Eos Smear Source URINE 11/15/18 21:30 Eos Smear Total Cells NONE SEEN (NONE SEEN) 11/15/18 21:30 PT 11.0 SECONDS (9.5-11.5) 11/14/18 21:10 INR 1.06 (0.5-1.4) 11/14/18 21:10 PTT (Actin FS) 32.2 SECONDS (26.0-38.0) 11/14/18 21:10 Sodium 141 mEq/L (136-145) 11/19/18 06:30 Potassium 4.0 mEq/L (3.5-5.1) 11/19/18 06:30 Chloride 106 mEq/L (98-107) 11/19/18 06:30 Carbon Dioxide 25.9 mEq/L (21.0-31.0) 11/19/18 06:30 Anion Gap 13.1 (7.0-16.0) 11/19/18 06:30 BUN 43 mg/dL (7-25) H 11/19/18 06:30 Creatinine 1.0 mg/dL (0.6-1.2) 11/19/18 06:30 Est GFR ( Amer) > 60.0 ml/min (>90) 11/19/18 06:30 Est GFR (Non-Af Amer) > 60.0 ml/min 11/19/18 06:30 BUN/Creatinine Ratio 43.0 11/19/18 06:30 Glucose 258 mg/dL (70-105) H 11/19/18 06:30 POC Glucose 258 MG/DL (70 - 105) H 11/19/18 11:42 Uric Acid 8.8 mg/dL (2.3-6.6) H 11/16/18 06:20 Calcium 9.1 mg/dL (8.6-10.3) 11/19/18 06:30 Phosphorus 2.9 mg/dL (2.5-5.0) 11/16/18 06:20 Magnesium 2.2 mg/dL (1.9-2.7) 11/16/18 06:20 B-Natriuretic Peptide 76.2 pg/mL (5.0-100.0) 11/14/18 21:10 TSH 2.40 uIU/ml (0.34-5.60) 11/14/18 21:10 Urine Source [place] 11/14/18 21:40 Urine Color YELLOW 11/14/18 21:40 Urine Clarity CLOUDY (CLEAR) H 11/14/18 21:40 Urine pH 6.0 (4.6 - 8.0) 11/14/18 21:40 Ur Specific [place] 1.015 (1.005-1.030) 11/14/18 21:40 Urine Protein 100 mg/dL (NEGATIVE) H 11/14/18 21:40 Urine Glucose (UA) NEGATIVE mg/dL (NEGATIVE) 11/14/18 21:40 Urine Ketones NEGATIVE mg/dL (NEGATIVE) 11/14/18 21:40 Urine Blood LARGE (NEGATIVE) H 11/14/18 21:40 Urine Nitrate NEGATIVE (NEGATIVE) 11/14/18 21:40 Urine Bilirubin NEGATIVE (NEGATIVE) 11/14/18 21:40 Urine Urobilinogen 0.2 E.U./dL (0.2 - 1.0) 11/14/18 21:40 Ur Leukocyte Esterase MODERATE (NEGATIVE) H 11/14/18 21:40 Urine RBC 5-10 /hpf (0-5) H 11/14/18 21:40 Urine WBC 25-50 /hpf (0-5) H 11/14/18 21:40 Ur Epithelial Cells FEW /lpf (FEW) 11/14/18 21:40 Urine Bacteria MANY /hpf (NONE SEEN) H 11/14/18 21:40 Urine Creatinine 35.0 mg/dl (28.0-217.0) 11/15/18 21:30 Microalb/Creat Ratio 305.9 mg/g creat (0.0-30.0) H 11/15/18 21:30 Stool Occult Blood POSITIVE (NEGATIVE) H 11/16/18 19:00 - Physical Exam Vitals and I&O: Vital Signs Temp 98.4 F 11/19/18 12:00 Pulse 69 11/19/18 12:00 Resp 20 11/19/18 12:00 BP 116/61 11/19/18 12:00 Pulse Ox 95 11/19/18 12:00 Intake & Output 11/18/18 11/19/18 11/19/18 18:59 06:59 18:59 Intake Total 250 Output Total 2 Balance 250 -2 Weight (lbs) 162.84 kg 162.84 kg Intake: Intake, IV Amount 100 Meropenem 1 gm In Sodium 100 Chloride 0.9% 100 ml @ 100 mls/hr IV Q12H [facility] Rx #:[id number] Oral 150 Output: Urine 2 Other: # Voids 3 # Bowel Movements 1 0 Stool Characteristics Soft Soft Weight Source Bedscale Bedscale Active Medications: Current Medications Acetaminophen/Hydrocodone Bitart ([place] 5mg/325mg) 1 tab PO Q8H PRN PRN Reason: Pain (Severe) Stop: 01/14/19 21:40 Last Admin: 11/19/18 06:43 Dose: 1 tab Albuterol Sulfate (Albuterol 2.5mg/3ml Neb Ud) 2.5 mg HHN Q2H PRN PRN Reason: Shortness of Breath or Wheeze Stop: 01/14/19 01:40 Ascorbic Acid (Vitamin C) 500 mg PO BID [facility] Stop: 01/14/19 08:59 Last Admin: 11/19/18 09:20 Dose: 500 mg Atorvastatin Calcium (Lipitor) 10 mg PO HS [facility]; Protocol Stop: 01/14/19 20:59 Last Admin: 11/18/18 21:11 Dose: 10 mg Bisacodyl (Dulcolax 5 Mg Ec Tab) 10 mg PO DAILY [facility] Stop: 01/16/19 14:29 Last Admin: 11/19/18 09:20 Dose: 10 mg Bupropion HCl (Wellbutrin Xl) 150 mg PO DAILY [facility]; Protocol Stop: 01/14/19 08:59 Last Admin: 11/19/18 09:21 Dose: 150 mg Carvedilol (Coreg) 12.5 mg PO BIDWM [facility] Stop: 01/14/19 08:59 Last Admin: 11/19/18 09:22 Dose: 12.5 mg Diltiazem HCl (Cardizem Cd) 120 mg PO DAILY [facility] Stop: 01/14/19 08:59 Last Admin: 11/19/18 09:22 Dose: Not Given Duloxetine HCl (Cymbalta) 30 mg PO DAILY [facility]; Protocol Stop: 01/14/19 08:59 Last Admin: 11/19/18 09:20 Dose: 30 mg Epoetin Amaury (Epogen) 10,000 units SUBQ TuThSa [facility] Stop: 01/14/19 15:44 Last Admin: 11/18/18 16:42 Dose: 10,000 units Ferrous Sulfate (Iron) 325 mg PO BID [facility] Stop: 01/14/19 08:59 Last Admin: 11/19/18 09:21 Dose: 325 mg Gabapentin (Neurontin) 600 mg PO BID [facility] Stop: 01/14/19 08:59 Last Admin: 11/19/18 09:20 Dose: 600 mg Sodium Chloride (Nacl 0.9%) 1,000 mls @ 100 mls/hr IV .Q10H [facility] Stop: 01/14/19 15:14 Last Admin: 11/16/18 17:21 Dose: 100 mls/hr Meropenem 1 gm/ Sodium (Chloride) 100 mls @ 100 mls/hr IV Q12H [facility] Stop: 01/17/19 16:59 Last Admin: 11/19/18 06:07 Dose: 100 mls/hr Insulin Glargine (Lantus Insulin) 54 units SUBQ HS [facility] Stop: 01/14/19 20:59 Last Admin: 11/18/18 21:11 Dose: 54 units Insulin Human Lispro (Humalog Insulin Sliding Scale) 0 units SUBQ ACHS [facility]; Protocol Stop: 01/14/19 07:29 Last Admin: 11/19/18 12:04 Dose: 9 units Ipratropium [place] (Atrovent Neb 0.5mg/2.5ml) 0.5 mg HHN Q2HR PRN PRN Reason: Shortness of Breath or Wheeze Stop: 01/14/19 01:40 Lorazepam (Ativan) 1 mg PO Q6HR PRN; Protocol PRN Reason: Agitation Stop: 01/14/19 21:42 Last Admin: 11/19/18 06:42 Dose: 1 mg Miscellaneous (Misc Oral Tab) 2 tab PO BID [facility]; Protocol Stop: 01/14/19 08:59 Last Admin: 11/19/18 09:21 Dose: 2 tab Pantoprazole Sodium (Protonix) 40 mg IVP DAILY [facility] Stop: 01/14/19 08:59 Last Admin: 11/19/18 09:21 Dose: 40 mg Pioglitazone HCl (Actos) 30 mg PO QDAC [facility] Stop: 01/14/19 07:29 Last Admin: 11/19/18 06:42 Dose: 30 mg Potassium Chloride (Klor-Con) 20 meq PO DAILY [facility] Stop: 01/15/19 17:59 Last Admin: 11/19/18 09:20 Dose: 20 meq Trazodone HCl (Desyrel) 50 mg PO HS [facility]; Protocol Stop: 01/14/19 20:59 Last Admin: 11/18/18 21:11 Dose: 50 mg Vitamin B Complex/Vit C/Folic Acid (Vitamin B Complex W/Vitamin C) 1 tab PO DAILY [facility] Stop: 01/14/19 08:59 Last Admin: 11/19/18 09:20 Dose: 1 tab Zinc Sulfate (Zinc Sulfate) 220 mg PO DAILY [facility] Stop: 01/14/19 08:59 Last Admin: 11/19/18 09:20 Dose: 220 mg General: Alert, Moderate distress HEENT: Atraumatic, Mucous membr. moist/pink Neck: Supple, Thyromegaly, +2 carotid pulse wo bruit Cardiovascular: Regular rate, Normal S1, Normal S2 Lungs: Clear to auscultation Abdomen: Bowel sounds, Soft Extremities: no Edema Neurological: Sensation intact Skin: no Rash Psych/Mental Status: Mood NL Assessment/Plan - Assessment Assessment: Uterine cancer Right leg cellulitis Diabetes mellitus type 2 Diabetic security stage III Major depression GI bleed with anemia stool for occult blood positive Angina stable Obesity iron deficiency anemia Congenital horseshoe kidney bilateral - Plan Plan: Patient to continue present management and awaiting GI evaluation Nutritional Asmnt/Malnutr-PDOC - Dietary Evaluation Malnutrition Findings (Please click <Entered> for more info): Nutritional Asmnt/Malnutrition Start: 11/15/18 12: 21 Text: Status: Complete Freq: Protocol: Document 11/15/18 12:21 MERCEDES (Rec: 11/15/18 12:35 MERCEDES [id number]) Nutritional Asmnt/Malnutrition Patient General Information Nutritional Screening High Risk Diagnosis UTI & Dehydration Pertinent Medical Hx/Surgical Hx HTN, CHF, COPD, acute renal failure, type 2 diabetes Subjective Information Patient was admitted from longterm; on dialysis at time of visit. Patient crying. Current Diet Order/ Nutrition Support Cardiac Patient / S.O Not Indicated Pertinent Medications vitmain C, Lipitor, Iron, Lantus, Humalog, protonix, Vitamin B complex with C, zinc sulfate Pertinent Labs (11/14) Na 135, K 3.3, BUN 136, Cr 1.5, Mg 1.8, glucose 141- 200 Nutritional Hx/Data Height 1.7 m Height (Calculated Centimeters) 170.2 Current Weight (lbs) 164.2 kg Weight (Calculated Kilograms) 164.2 Weight (Calculated Grams) 824818.4 [place] Body Weight 148 % [place] Body Weight 244 Body Mass Index (BMI) 56.7 Recent Weight Change No Weight Status Morbidly Obese GI Symptoms GI Symptoms None Last BM none noted since admission Difficult in: None Food Allergies No Cultural/Ethnic/Orthodoxy Belief none indicated Usual diet at home unknown Skin Integrity/Comment: [place] 14, skin tear Current %PO Good (75-100%) Estimated Nutritional Goals BEE in Kcals: Adj wt of IBW Calories/Kcals/Kg using Adj BW 91.5kg Kcals Calculated ~6334-7299 kcal/day Protein: Adj wt of IBW Protein g/k-1.2 gm/kg Protein Calculated 90-110 gm/day Fluid: ml ~9767-9451 ml/day (1 ml/kcal) Nutritional Problem 1. Problem Problem Altered nutrition related lab values related to Etiology electrolyte imbalance and hyperglycemia aeb Signs/Symptoms: Na 135, K 3.3, mg 1.8, glucose 141-200 Intervention/Recommendation Comments 1. Consider modifying diet to 60 gm CCHO. No need for renal diet at this time due to hypokalemia, no need for low potassium diet. Check phosphorus level to determine need for dietary phosphorus restriction. Current diet is low in sodium. Expected Outcomes/Goals Expected Outcomes/Goals Oral itnake >75% of meals, weight stable, nutrition related labs WNL F/U MR 11/18-
--- NOTE | 2018-11-19 14:36 | GI Progress Note ---
Subjective - Review of Systems Service Date: 11/19/18 Events since last encounter: no major events Objective - Results Result Diagrams: 11/19/18 06:30 11/19/18 06:30 Recent Labs: Laboratory Last Values WBC 10.6 Th/cmm (4.8-10.8) 11/19/18 06:30 RBC 3.64 Mil/cmm (3.80-5.10) L 11/19/18 06:30 Hgb 10.7 gm/dL (12-16) L 11/19/18 06:30 Hct 32.6 % (41.0-60) L 11/19/18 06:30 MCV 89.6 fl (81-100) 11/19/18 06:30 MCH 29.4 pg (27.0-31.0) 11/19/18 06:30 MCHC Differential 32.8 pg (28.0-36.0) 11/19/18 06:30 RDW 15.2 % (11.5-20.0) 11/19/18 06:30 Plt Count 189 Th/cmm (150-400) 11/19/18 06:30 MPV 9.6 fl 11/19/18 06:30 Add Manual Diff YES 11/19/18 06:30 Neutrophils % 70.9 % (40.0-80.0) 11/18/18 04:35 Band Neutrophils % 2 % (0-10) 11/19/18 06:30 Lymphocytes % 14.5 % (20.0-50.0) L 11/18/18 04:35 Monocytes % 10.1 % (2.0-10.0) H 11/18/18 04:35 Eosinophils % 3.8 % (0.0-5.0) 11/18/18 04:35 Basophils % 0.7 % (0.0-2.0) 11/18/18 04:35 Neutrophils (Manual) 80 % (40-80) 11/19/18 06:30 Lymphocytes 12 % (20-50) L 11/19/18 06:30 Monocytes 5 % (2-10) 11/19/18 06:30 Eosinophils 1 % (0-5) 11/19/18 06:30 Basophils 0 % (0-3) 11/19/18 06:30 Platelet Estimate (NORMAL) 11/19/18 06:30 RBC Morph Micro Appear (NORMAL) 11/19/18 06:30 Eos Smear Source URINE 11/15/18 21:30 Eos Smear Total Cells NONE SEEN (NONE SEEN) 11/15/18 21:30 PT 11.0 SECONDS (9.5-11.5) 11/14/18 21:10 INR 1.06 (0.5-1.4) 11/14/18 21:10 PTT (Actin FS) 32.2 SECONDS (26.0-38.0) 11/14/18 21:10 Sodium 141 mEq/L (136-145) 11/19/18 06:30 Potassium 4.0 mEq/L (3.5-5.1) 11/19/18 06:30 Chloride 106 mEq/L (98-107) 11/19/18 06:30 Carbon Dioxide 25.9 mEq/L (21.0-31.0) 11/19/18 06:30 Anion Gap 13.1 (7.0-16.0) 11/19/18 06:30 BUN 43 mg/dL (7-25) H 11/19/18 06:30 Creatinine 1.0 mg/dL (0.6-1.2) 11/19/18 06:30 Est GFR ( Amer) > 60.0 ml/min (>90) 11/19/18 06:30 Est GFR (Non-Af Amer) > 60.0 ml/min 11/19/18 06:30 BUN/Creatinine Ratio 43.0 11/19/18 06:30 Glucose 258 mg/dL (70-105) H 11/19/18 06:30 POC Glucose 258 MG/DL (70 - 105) H 11/19/18 11:42 Uric Acid 8.8 mg/dL (2.3-6.6) H 11/16/18 06:20 Calcium 9.1 mg/dL (8.6-10.3) 11/19/18 06:30 Phosphorus 2.9 mg/dL (2.5-5.0) 11/16/18 06:20 Magnesium 2.2 mg/dL (1.9-2.7) 11/16/18 06:20 B-Natriuretic Peptide 76.2 pg/mL (5.0-100.0) 11/14/18 21:10 TSH 2.40 uIU/ml (0.34-5.60) 11/14/18 21:10 Urine Source [place] 11/14/18 21:40 Urine Color YELLOW 11/14/18 21:40 Urine Clarity CLOUDY (CLEAR) H 11/14/18 21:40 Urine pH 6.0 (4.6 - 8.0) 11/14/18 21:40 Ur Specific [place] 1.015 (1.005-1.030) 11/14/18 21:40 Urine Protein 100 mg/dL (NEGATIVE) H 11/14/18 21:40 Urine Glucose (UA) NEGATIVE mg/dL (NEGATIVE) 11/14/18 21:40 Urine Ketones NEGATIVE mg/dL (NEGATIVE) 11/14/18 21:40 Urine Blood LARGE (NEGATIVE) H 11/14/18 21:40 Urine Nitrate NEGATIVE (NEGATIVE) 11/14/18 21:40 Urine Bilirubin NEGATIVE (NEGATIVE) 11/14/18 21:40 Urine Urobilinogen 0.2 E.U./dL (0.2 - 1.0) 11/14/18 21:40 Ur Leukocyte Esterase MODERATE (NEGATIVE) H 11/14/18 21:40 Urine RBC 5-10 /hpf (0-5) H 11/14/18 21:40 Urine WBC 25-50 /hpf (0-5) H 11/14/18 21:40 Ur Epithelial Cells FEW /lpf (FEW) 11/14/18 21:40 Urine Bacteria MANY /hpf (NONE SEEN) H 11/14/18 21:40 Urine Creatinine 35.0 mg/dl (28.0-217.0) 11/15/18 21:30 Microalb/Creat Ratio 305.9 mg/g creat (0.0-30.0) H 11/15/18 21:30 Stool Occult Blood POSITIVE (NEGATIVE) H 11/16/18 19:00 - Physical Exam Vitals and I&O: Vital Signs Temp 98.4 F 11/19/18 12:00 Pulse 69 11/19/18 12:00 Resp 20 11/19/18 12:00 BP 116/61 11/19/18 12:00 Pulse Ox 95 11/19/18 12:00 Intake & Output 11/18/18 11/19/18 11/19/18 18:59 06:59 18:59 Intake Total 250 Output Total 2 Balance 250 -2 Weight (lbs) 162.84 kg 162.84 kg Intake: Intake, IV Amount 100 Meropenem 1 gm In Sodium 100 Chloride 0.9% 100 ml @ 100 mls/hr IV Q12H [facility] Rx #:[id number] Oral 150 Output: Urine 2 Other: # Voids 3 # Bowel Movements 1 0 Stool Characteristics Soft Soft Weight Source Bedscale Bedscale Active Medications: Current Medications Acetaminophen/Hydrocodone Bitart ([place] 5mg/325mg) 1 tab PO Q8H PRN PRN Reason: Pain (Severe) Stop: 01/14/19 21:40 Last Admin: 11/19/18 06:43 Dose: 1 tab Albuterol Sulfate (Albuterol 2.5mg/3ml Neb Ud) 2.5 mg HHN Q2H PRN PRN Reason: Shortness of Breath or Wheeze Stop: 01/14/19 01:40 Ascorbic Acid (Vitamin C) 500 mg PO BID [facility] Stop: 01/14/19 08:59 Last Admin: 11/19/18 09:20 Dose: 500 mg Atorvastatin Calcium (Lipitor) 10 mg PO HS [facility]; Protocol Stop: 01/14/19 20:59 Last Admin: 11/18/18 21:11 Dose: 10 mg Bisacodyl (Dulcolax 5 Mg Ec Tab) 10 mg PO DAILY [facility] Stop: 01/16/19 14:29 Last Admin: 11/19/18 09:20 Dose: 10 mg Bupropion HCl (Wellbutrin Xl) 150 mg PO DAILY [facility]; Protocol Stop: 01/14/19 08:59 Last Admin: 11/19/18 09:21 Dose: 150 mg Carvedilol (Coreg) 12.5 mg PO BIDWM [facility] Stop: 01/14/19 08:59 Last Admin: 11/19/18 09:22 Dose: 12.5 mg Diltiazem HCl (Cardizem Cd) 120 mg PO DAILY [facility] Stop: 01/14/19 08:59 Last Admin: 11/19/18 09:22 Dose: Not Given Duloxetine HCl (Cymbalta) 30 mg PO DAILY [facility]; Protocol Stop: 01/14/19 08:59 Last Admin: 11/19/18 09:20 Dose: 30 mg Epoetin Amaury (Epogen) 10,000 units SUBQ TuThSa [facility] Stop: 01/14/19 15:44 Last Admin: 11/18/18 16:42 Dose: 10,000 units Ferrous Sulfate (Iron) 325 mg PO BID [facility] Stop: 01/14/19 08:59 Last Admin: 11/19/18 09:21 Dose: 325 mg Gabapentin (Neurontin) 600 mg PO BID [facility] Stop: 01/14/19 08:59 Last Admin: 11/19/18 09:20 Dose: 600 mg Sodium Chloride (Nacl 0.9%) 1,000 mls @ 100 mls/hr IV .Q10H [facility] Stop: 01/14/19 15:14 Last Admin: 11/16/18 17:21 Dose: 100 mls/hr Meropenem 1 gm/ Sodium (Chloride) 100 mls @ 100 mls/hr IV Q12H [facility] Stop: 01/17/19 16:59 Last Admin: 11/19/18 06:07 Dose: 100 mls/hr Insulin Glargine (Lantus Insulin) 54 units SUBQ HS [facility] Stop: 01/14/19 20:59 Last Admin: 11/18/18 21:11 Dose: 54 units Insulin Human Lispro (Humalog Insulin Sliding Scale) 0 units SUBQ ACHS [facility]; Protocol Stop: 01/14/19 07:29 Last Admin: 11/19/18 12:04 Dose: 9 units Ipratropium [place] (Atrovent Neb 0.5mg/2.5ml) 0.5 mg HHN Q2HR PRN PRN Reason: Shortness of Breath or Wheeze Stop: 01/14/19 01:40 Lorazepam (Ativan) 1 mg PO Q6HR [facility]; Protocol PRN Reason: Agitation Stop: 01/14/19 21:42 Last Admin: 11/19/18 06:42 Dose: 1 mg Miscellaneous (Misc Oral Tab) 2 tab PO BID [facility]; Protocol Stop: 01/14/19 08:59 Last Admin: 11/19/18 09:21 Dose: 2 tab Pantoprazole Sodium (Protonix) 40 mg IVP DAILY [facility] Stop: 01/14/19 08:59 Last Admin: 11/19/18 09:21 Dose: 40 mg Pioglitazone HCl (Actos) 30 mg PO QDAC [facility] Stop: 01/14/19 07:29 Last Admin: 11/19/18 06:42 Dose: 30 mg Potassium Chloride (Klor-Con) 20 meq PO DAILY [facility] Stop: 01/15/19 17:59 Last Admin: 11/19/18 09:20 Dose: 20 meq Trazodone HCl (Desyrel) 50 mg PO HS [facility]; Protocol Stop: 01/14/19 20:59 Last Admin: 11/18/18 21:11 Dose: 50 mg Vitamin B Complex/Vit C/Folic Acid (Vitamin B Complex W/Vitamin C) 1 tab PO DAILY [facility] Stop: 01/14/19 08:59 Last Admin: 11/19/18 09:20 Dose: 1 tab Zinc Sulfate (Zinc Sulfate) 220 mg PO DAILY [facility] Stop: 01/14/19 08:59 Last Admin: 11/19/18 09:20 Dose: 220 mg General: Alert, Moderate distress HEENT: Atraumatic, Mucous membr. moist/pink Neck: Supple, Thyromegaly, +2 carotid pulse wo bruit Cardiovascular: Regular rate, Normal S1, Normal S2 Lungs: Clear to auscultation Abdomen: Bowel sounds, Soft Extremities: no Edema Neurological: Sensation intact Skin: no Rash Psych/Mental Status: Mood NL Assessment/Plan - Assessment Assessment: 1. Abdominal Pain 2, ESRD 3. Probable IBS-C -continue with supportive care and management -bowel regimen miralax daily -stool softeners -will follow
--- NOTE | 2018-11-19 14:57 | General Progress Note ---
Subjective - Review of Systems Service Date: 11/19/18 Subjective: alert, less lower abd pain, had BM Objective - Results Result Diagrams: 11/19/18 06:30 11/19/18 06:30 Recent Labs: Laboratory Last Values WBC 10.6 Th/cmm (4.8-10.8) 11/19/18 06:30 RBC 3.64 Mil/cmm (3.80-5.10) L 11/19/18 06:30 Hgb 10.7 gm/dL (12-16) L 11/19/18 06:30 Hct 32.6 % (41.0-60) L 11/19/18 06:30 MCV 89.6 fl (81-100) 11/19/18 06:30 MCH 29.4 pg (27.0-31.0) 11/19/18 06:30 MCHC Differential 32.8 pg (28.0-36.0) 11/19/18 06:30 RDW 15.2 % (11.5-20.0) 11/19/18 06:30 Plt Count 189 Th/cmm (150-400) 11/19/18 06:30 MPV 9.6 fl 11/19/18 06:30 Add Manual Diff YES 11/19/18 06:30 Neutrophils % 70.9 % (40.0-80.0) 11/18/18 04:35 Band Neutrophils % 2 % (0-10) 11/19/18 06:30 Lymphocytes % 14.5 % (20.0-50.0) L 11/18/18 04:35 Monocytes % 10.1 % (2.0-10.0) H 11/18/18 04:35 Eosinophils % 3.8 % (0.0-5.0) 11/18/18 04:35 Basophils % 0.7 % (0.0-2.0) 11/18/18 04:35 Neutrophils (Manual) 80 % (40-80) 11/19/18 06:30 Lymphocytes 12 % (20-50) L 11/19/18 06:30 Monocytes 5 % (2-10) 11/19/18 06:30 Eosinophils 1 % (0-5) 11/19/18 06:30 Basophils 0 % (0-3) 11/19/18 06:30 Platelet Estimate (NORMAL) 11/19/18 06:30 RBC Morph Micro Appear (NORMAL) 11/19/18 06:30 Eos Smear Source URINE 11/15/18 21:30 Eos Smear Total Cells NONE SEEN (NONE SEEN) 11/15/18 21:30 PT 11.0 SECONDS (9.5-11.5) 11/14/18 21:10 INR 1.06 (0.5-1.4) 11/14/18 21:10 PTT (Actin FS) 32.2 SECONDS (26.0-38.0) 11/14/18 21:10 Sodium 141 mEq/L (136-145) 11/19/18 06:30 Potassium 4.0 mEq/L (3.5-5.1) 11/19/18 06:30 Chloride 106 mEq/L (98-107) 11/19/18 06:30 Carbon Dioxide 25.9 mEq/L (21.0-31.0) 11/19/18 06:30 Anion Gap 13.1 (7.0-16.0) 11/19/18 06:30 BUN 43 mg/dL (7-25) H 11/19/18 06:30 Creatinine 1.0 mg/dL (0.6-1.2) 11/19/18 06:30 Est GFR ( Amer) > 60.0 ml/min (>90) 11/19/18 06:30 Est GFR (Non-Af Amer) > 60.0 ml/min 11/19/18 06:30 BUN/Creatinine Ratio 43.0 11/19/18 06:30 Glucose 258 mg/dL (70-105) H 11/19/18 06:30 POC Glucose 258 MG/DL (70 - 105) H 11/19/18 11:42 Uric Acid 8.8 mg/dL (2.3-6.6) H 11/16/18 06:20 Calcium 9.1 mg/dL (8.6-10.3) 11/19/18 06:30 Phosphorus 2.9 mg/dL (2.5-5.0) 11/16/18 06:20 Magnesium 2.2 mg/dL (1.9-2.7) 11/16/18 06:20 B-Natriuretic Peptide 76.2 pg/mL (5.0-100.0) 11/14/18 21:10 TSH 2.40 uIU/ml (0.34-5.60) 11/14/18 21:10 Urine Source [place] 11/14/18 21:40 Urine Color YELLOW 11/14/18 21:40 Urine Clarity CLOUDY (CLEAR) H 11/14/18 21:40 Urine pH 6.0 (4.6 - 8.0) 11/14/18 21:40 Ur Specific [place] 1.015 (1.005-1.030) 11/14/18 21:40 Urine Protein 100 mg/dL (NEGATIVE) H 11/14/18 21:40 Urine Glucose (UA) NEGATIVE mg/dL (NEGATIVE) 11/14/18 21:40 Urine Ketones NEGATIVE mg/dL (NEGATIVE) 11/14/18 21:40 Urine Blood LARGE (NEGATIVE) H 11/14/18 21:40 Urine Nitrate NEGATIVE (NEGATIVE) 11/14/18 21:40 Urine Bilirubin NEGATIVE (NEGATIVE) 11/14/18 21:40 Urine Urobilinogen 0.2 E.U./dL (0.2 - 1.0) 11/14/18 21:40 Ur Leukocyte Esterase MODERATE (NEGATIVE) H 11/14/18 21:40 Urine RBC 5-10 /hpf (0-5) H 11/14/18 21:40 Urine WBC 25-50 /hpf (0-5) H 11/14/18 21:40 Ur Epithelial Cells FEW /lpf (FEW) 11/14/18 21:40 Urine Bacteria MANY /hpf (NONE SEEN) H 11/14/18 21:40 Urine Creatinine 35.0 mg/dl (28.0-217.0) 11/15/18 21:30 Microalb/Creat Ratio 305.9 mg/g creat (0.0-30.0) H 11/15/18 21:30 Stool Occult Blood POSITIVE (NEGATIVE) H 11/16/18 19:00 - Physical Exam Vitals and I&O: Vital Signs Temp 98.4 F 11/19/18 12:00 Pulse 69 11/19/18 12:00 Resp 20 11/19/18 12:00 BP 116/61 11/19/18 12:00 Pulse Ox 95 11/19/18 12:00 Intake & Output 11/18/18 11/19/18 11/19/18 18:59 06:59 18:59 Intake Total 250 Output Total 2 Balance 250 -2 Weight (lbs) 162.84 kg 162.84 kg Intake: Intake, IV Amount 100 Meropenem 1 gm In Sodium 100 Chloride 0.9% 100 ml @ 100 mls/hr IV Q12H [facility] Rx #:[id number] Oral 150 Output: Urine 2 Other: # Voids 3 # Bowel Movements 1 0 Stool Characteristics Soft Soft Weight Source Bedscale Bedscale Active Medications: Current Medications Acetaminophen/Hydrocodone Bitart ([place] 5mg/325mg) 1 tab PO Q8H PRN PRN Reason: Pain (Severe) Stop: 01/14/19 21:40 Last Admin: 11/19/18 06:43 Dose: 1 tab Albuterol Sulfate (Albuterol 2.5mg/3ml Neb Ud) 2.5 mg HHN Q2H PRN PRN Reason: Shortness of Breath or Wheeze Stop: 01/14/19 01:40 Ascorbic Acid (Vitamin C) 500 mg PO BID [facility] Stop: 01/14/19 08:59 Last Admin: 11/19/18 09:20 Dose: 500 mg Atorvastatin Calcium (Lipitor) 10 mg PO HS [facility]; Protocol Stop: 01/14/19 20:59 Last Admin: 11/18/18 21:11 Dose: 10 mg Bisacodyl (Dulcolax 5 Mg Ec Tab) 10 mg PO DAILY [facility] Stop: 01/16/19 14:29 Last Admin: 11/19/18 09:20 Dose: 10 mg Bupropion HCl (Wellbutrin Xl) 150 mg PO DAILY [facility]; Protocol Stop: 01/14/19 08:59 Last Admin: 11/19/18 09:21 Dose: 150 mg Carvedilol (Coreg) 12.5 mg PO BIDWM [facility] Stop: 01/14/19 08:59 Last Admin: 11/19/18 09:22 Dose: 12.5 mg Diltiazem HCl (Cardizem Cd) 120 mg PO DAILY [facility] Stop: 01/14/19 08:59 Last Admin: 11/19/18 09:22 Dose: Not Given Duloxetine HCl (Cymbalta) 30 mg PO DAILY [facility]; Protocol Stop: 01/14/19 08:59 Last Admin: 11/19/18 09:20 Dose: 30 mg Epoetin Amaury (Epogen) 10,000 units SUBQ TuTa [facility] Stop: 01/14/19 15:44 Last Admin: 11/18/18 16:42 Dose: 10,000 units Ferrous Sulfate (Iron) 325 mg PO BID [facility] Stop: 01/14/19 08:59 Last Admin: 11/19/18 09:21 Dose: 325 mg Gabapentin (Neurontin) 600 mg PO BID [facility] Stop: 01/14/19 08:59 Last Admin: 11/19/18 09:20 Dose: 600 mg Sodium Chloride (Nacl 0.9%) 1,000 mls @ 100 mls/hr IV .Q10H [facility] Stop: 01/14/19 15:14 Last Admin: 11/16/18 17:21 Dose: 100 mls/hr Meropenem 1 gm/ Sodium (Chloride) 100 mls @ 100 mls/hr IV Q12H [facility] Stop: 01/17/19 16:59 Last Admin: 11/19/18 06:07 Dose: 100 mls/hr Insulin Glargine (Lantus Insulin) 54 units SUBQ HS [facility] Stop: 01/14/19 20:59 Last Admin: 11/18/18 21:11 Dose: 54 units Insulin Human Lispro (Humalog Insulin Sliding Scale) 0 units SUBQ ACHS [facility]; Protocol Stop: 01/14/19 07:29 Last Admin: 11/19/18 12:04 Dose: 9 units Ipratropium [place] (Atrovent Neb 0.5mg/2.5ml) 0.5 mg HHN Q2HR PRN PRN Reason: Shortness of Breath or Wheeze Stop: 01/14/19 01:40 Lorazepam (Ativan) 1 mg PO Q6HR PRN; Protocol PRN Reason: Agitation Stop: 01/14/19 21:42 Last Admin: 11/19/18 06:42 Dose: 1 mg Miscellaneous (Misc Oral Tab) 2 tab PO BID [facility]; Protocol Stop: 01/14/19 08:59 Last Admin: 11/19/18 09:21 Dose: 2 tab Pantoprazole Sodium (Protonix) 40 mg IVP DAILY [facility] Stop: 01/14/19 08:59 Last Admin: 11/19/18 09:21 Dose: 40 mg Pioglitazone HCl (Actos) 30 mg PO QDAC [facility] Stop: 01/14/19 07:29 Last Admin: 11/19/18 06:42 Dose: 30 mg Potassium Chloride (Klor-Con) 20 meq PO DAILY [facility] Stop: 01/15/19 17:59 Last Admin: 11/19/18 09:20 Dose: 20 meq Trazodone HCl (Desyrel) 50 mg PO HS [facility]; Protocol Stop: 01/14/19 20:59 Last Admin: 11/18/18 21:11 Dose: 50 mg Vitamin B Complex/Vit C/Folic Acid (Vitamin B Complex W/Vitamin C) 1 tab PO DAILY [facility] Stop: 01/14/19 08:59 Last Admin: 11/19/18 09:20 Dose: 1 tab Zinc Sulfate (Zinc Sulfate) 220 mg PO DAILY [facility] Stop: 01/14/19 08:59 Last Admin: 11/19/18 09:20 Dose: 220 mg General: Alert, Moderate distress HEENT: Atraumatic, Mucous membr. moist/pink Neck: Supple, Thyromegaly, +2 carotid pulse wo bruit Cardiovascular: Regular rate, Normal S1, Normal S2 Lungs: Clear to auscultation Abdomen: Bowel sounds, Soft Extremities: no Edema Neurological: Sensation intact Skin: no Rash Psych/Mental Status: Mood NL Assessment/Plan - Assessment Assessment: BARRY on CKD Lower abd pain Stool OB (+) Recurrent UTI T2DM w/ CKD Ess Htn W/ CKD Right LE Cellulitis Hx Uterinne CA S/P SABIHA Morbid Obese Fecal Impaction - Plan Plan: Lab - Result Diagrams 11/16/18 06:20 11/16/18 06:20 Current Medications Acetaminophen/Hydrocodone Bitart ([place] 5mg/325mg) 1 tab PO Q8H PRN PRN Reason: Pain (Severe) Stop: 01/14/19 21:40 Last Admin: 11/16/18 06:36 Dose: 1 tab Albuterol Sulfate (Albuterol 2.5mg/3ml Neb Ud) 2.5 mg HHN Q2H PRN PRN Reason: Shortness of Breath or Wheeze Stop: 01/14/19 01:40 Ascorbic Acid (Vitamin C) 500 mg PO BID [facility] Stop: 01/14/19 08:59 Last Admin: 11/16/18 17:29 Dose: 500 mg Atorvastatin Calcium (Lipitor) 10 mg PO HS [facility]; Protocol Stop: 01/14/19 20:59 Last Admin: 11/15/18 20:24 Dose: 10 mg Bupropion HCl (Wellbutrin Xl) 150 mg PO DAILY [facility]; Protocol Stop: 01/14/19 08:59 Last Admin: 11/16/18 09:54 Dose: 150 mg Buspirone HCl (Buspar) 20 mg PO BID [facility]; Protocol Stop: 01/14/19 08:59 Last Admin: 11/16/18 17:29 Dose: 20 mg Carvedilol (Coreg) 12.5 mg PO BIDWM [facility] Stop: 01/14/19 08:59 Last Admin: 11/16/18 08:00 Dose: Not Given Diltiazem HCl (Cardizem Cd) 120 mg PO DAILY [facility] Stop: 01/14/19 08:59 Last Admin: 11/16/18 09:53 Dose: 120 mg Duloxetine HCl (Cymbalta) 30 mg PO DAILY [facility]; Protocol Stop: 01/14/19 08:59 Last Admin: 11/16/18 09:52 Dose: 30 mg Epoetin Amaury (Epogen) 10,000 units SUBQ TuThSa [facility] Stop: 01/14/19 15:44 Last Admin: 11/16/18 10:03 Dose: 10,000 units Ferrous Sulfate (Iron) 325 mg PO BID [facility] Stop: 01/14/19 08:59 Last Admin: 11/16/18 17:29 Dose: 325 mg Gabapentin (Neurontin) 600 mg PO BID [facility] Stop: 01/14/19 08:59 Last Admin: 11/16/18 17:29 Dose: 600 mg Ceftriaxone Sodium 1 gm/ (Sodium Chloride) 50 mls @ 100 mls/hr IV Q24HR [facility] Stop: 01/14/19 10:14 Last Admin: 11/16/18 12:51 Dose: 100 mls/hr Sodium Chloride (Nacl 0.9%) 1,000 mls @ 100 mls/hr IV .Q10H [facility] Stop: 01/14/19 15:14 Last Admin: 11/16/18 17:21 Dose: 100 mls/hr Insulin Glargine (Lantus Insulin) 54 units SUBQ HS [facility] Stop: 01/14/19 20:59 Last Admin: 11/15/18 20:25 Dose: 54 units Insulin Human Lispro (Humalog Insulin Sliding Scale) 0 units SUBQ ACHS [facility]; Protocol Stop: 01/14/19 07:29 Last Admin: 11/16/18 17:28 Dose: 6 units Ipratropium [place] (Atrovent Neb 0.5mg/2.5ml) 0.5 mg HHN Q2HR PRN PRN Reason: Shortness of Breath or Wheeze Stop: 01/14/19 01:40 Lorazepam (Ativan) 1 mg PO Q6HR PRN; Protocol PRN Reason: Agitation Stop: 01/14/19 21:42 Last Admin: 11/16/18 13:33 Dose: 1 mg Pantoprazole Sodium (Protonix) 40 mg IVP DAILY [facility] Stop: 01/14/19 08:59 Last Admin: 11/16/18 09:54 Dose: 40 mg Pioglitazone HCl (Actos) 30 mg PO QDAC [facility] Stop: 01/14/19 07:29 Last Admin: 11/16/18 06:36 Dose: 30 mg Trazodone HCl (Desyrel) 50 mg PO HS [facility]; Protocol Stop: 01/14/19 20:59 Last Admin: 11/15/18 20:24 Dose: 50 mg Vitamin B Complex/Vit C/Folic Acid (Vitamin B Complex W/Vitamin C) 1 tab PO DAILY [facility] Stop: 01/14/19 08:59 Last Admin: 11/16/18 09:52 Dose: 1 tab Zinc Sulfate (Zinc Sulfate) 220 mg PO DAILY [facility] Stop: 01/14/19 08:59 Last Admin: 11/16/18 09:52 Dose: 220 Lab - Result Diagrams 11/19/18 06:30 11/19/18 06:30 Kidney fnc better w/ BUN/CR 43/1 replace K Stool for OB (+) f/u electrolytes Nutritional Asmnt/Malnutr-PDOC - Dietary Evaluation Malnutrition Findings (Please click <Entered> for more info): Nutritional Asmnt/Malnutrition Start: 11/15/18 12: 21 Text: Status: Complete Freq: Protocol: Document 11/15/18 12:21 MERCEDES (Rec: 11/15/18 12:35 MERCEDES [id number]) Nutritional Asmnt/Malnutrition Patient General Information Nutritional Screening High Risk Diagnosis UTI & Dehydration Pertinent Medical Hx/Surgical Hx HTN, CHF, COPD, acute renal failure, type 2 diabetes Subjective Information Patient was admitted from care home; on dialysis at time of visit. Patient crying. Current Diet Order/ Nutrition Support Cardiac Patient / S.O Not Indicated Pertinent Medications vitmain C, Lipitor, Iron, Lantus, Humalog, protonix, Vitamin B complex with C, zinc sulfate Pertinent Labs (11/14) Na 135, K 3.3, BUN 136, Cr 1.5, Mg 1.8, glucose 141- 200 Nutritional Hx/Data Height 1.7 m Height (Calculated Centimeters) 170.2 Current Weight (lbs) 164.2 kg Weight (Calculated Kilograms) 164.2 Weight (Calculated Grams) 138742.4 [place] Body Weight 148 % [place] Body Weight 244 Body Mass Index (BMI) 56.7 Recent Weight Change No Weight Status Morbidly Obese GI Symptoms GI Symptoms None Last BM none noted since admission Difficult in: None Food Allergies No Cultural/Ethnic/Muslim Belief none indicated Usual diet at home unknown Skin Integrity/Comment: [place] 14, skin tear Current %PO Good (75-100%) Estimated Nutritional Goals BEE in Kcals: Adj wt of IBW Calories/Kcals/Kg using Adj BW 91.5kg Kcals Calculated ~4753-6705 kcal/day Protein: Adj wt of IBW Protein g/k-1.2 gm/kg Protein Calculated 90-110 gm/day Fluid: ml ~7725-3793 ml/day (1 ml/kcal) Nutritional Problem 1. Problem Problem Altered nutrition related lab values related to Etiology electrolyte imbalance and hyperglycemia aeb Signs/Symptoms: Na 135, K 3.3, mg 1.8, glucose 141-200 Intervention/Recommendation Comments 1. Consider modifying diet to 60 gm CCHO. No need for renal diet at this time due to hypokalemia, no need for low potassium diet. Check phosphorus level to determine need for dietary phosphorus restriction. Current diet is low in sodium. Expected Outcomes/Goals Expected Outcomes/Goals Oral itnake >75% of meals, weight stable, nutrition related labs WNL F/U MR 11/18-
[2018-11-19] MEDS: Sodium Chloride 0.9% 1,000 ML IV SCH ×2 (17:28→21:04)
[2018-11-19] MEDS: Insulin Glargine 100 units/ml 10ml Vial SUBQ SCH (21:02)
[2018-11-19] MEDS: Atorvastatin Calcium 10 MG TAB PO SCH (21:03)
[2018-11-20] MEDS: Meropenem 1 GM in Sodium Chloride 0.9% 100 ML IV SCH (04:32)
[2018-11-20] MEDS: Sodium Chloride 0.9% 1,000 ML IV SCH (04:33)
[2018-11-20 06:38] LABS: % BASOPHILS 0.5 % (0.0-2.0); % EOSINOPHILS 4.6 % (0.0-5.0); % LYMPHOCYTES 11.1 % (20.0-50.0); % MONOCYTES 9.3 % (2.0-10.0); % NEUTROPHILS 74.5 % (40.0-80.0); EOSINOPHILE ABSOLUTE 0.3 Th/cmm (0.1-0.4); HEMATOCRIT 29.2 % (41.0-60); HEMOGLOBIN 9.6 gm/dL (12-16); LYMPHOCYTE ABSOLUTE 0.8 Th/cmm (1.5-3.0); MEAN CELL VOLUME 87.9 fl (81-100); MEAN CORPUSCULAR HEMOGLOBIN 28.8 pg (27.0-31.0); MEAN CORPUSCULAR HGB CONC 32.7 pg (28.0-36.0); MEAN PLATELET VOLUME 8.5 fl; MONOCYTE ABSOLUTE 0.7 Th/cmm (0.3-1.0); NEUTROPHILE ABSOLUTE 5.4 Th/cmm (1.8-8.0); PLATELET COUNT 252 Th/cmm (150-400); RED BLOOD COUNT 3.33 Mil/cmm (3.80-5.10); RED CELL DISTRIBUTION WIDTH 15.2 % (11.5-20.0); WHITE BLOOD COUNT 7.2 Th/cmm (4.8-10.8)
[2018-11-20] MEDS: INSULIN LISPRO SLIDING SCALE 100 UNITS/ML UNIT SUBQ SCH ×4 (06:38→20:43)
[2018-11-20 06:55] LABS: ANION GAP 10.4 (7.0-16.0); BUN - UREA NITROGEN 34 mg/dL (7-25); CALCIUM SERUM 8.6 mg/dL (8.6-10.3); CARBON DIOXIDE 25.9 mEq/L (21.0-31.0); CHLORIDE 108 mEq/L (98-107); CREATININE - SERUM 0.8 mg/dL (0.6-1.2); GFR AFRICAN-AMERICAN > 60.0 ml/min (>90); GFR NON AFRICAN-AMERICAN > 60.0 ml/min; GLUCOSE 261 mg/dL (70-105); POTASSIUM SERUM 4.3 mEq/L (3.5-5.1); SODIUM SERUM 140 mEq/L (136-145)
[2018-11-20] MEDS: Vitamin B Complex w/Vitamin C Tab PO SCH (08:22)
[2018-11-20] MEDS: Hydrocodone/APAP 5mg/325mg Tab PO PRN ×2 (08:22→16:37)
[2018-11-20] MEDS: Potassium Chloride 20 mEq ER Tab PO SCH (08:23)
[2018-11-20] MEDS: Diltiazem CD 120 mg 24H PO SCH (08:23)
[2018-11-20] MEDS: Ferrous Sulfate 325 MG TAB PO SCH ×2 (08:23→16:37)
[2018-11-20] MEDS: buPROPion XL 150 mg T 24 H PO SCH (08:34)
--- NOTE | 2018-11-20 12:26 | Discharge Summary ---
DATE OF DISCHARGE: 11/20/2018 ATTENDING PHYSICIAN: Dr. Norberto Manuel. DISCHARGE DIAGNOSES: 1. Acute urinary tract infection with Escherichia coli ESBL. 2. Acute renal insufficiency. 3. Morbidly obese. 4. Anemia. 5. Hypertension. 6. Congestive heart failure. 7. Asthma. 8. Chronic obstructive pulmonary disease. 9. Type 2 diabetes. HISTORY OF PRESENT ILLNESS: A 58-year-old female, [facility] resident of [facility] who has a 1-day history of shortness of breath associated with increased generalized weakness. The patient also complained of having pain upon urination. No reports of any fevers at the [facility]. PHYSICAL EXAMINATION: GENERAL: Obese female, awake, alert, in no apparent distress. VITAL SIGNS: Stable, afebrile. HEAD: Normocephalic, atraumatic. NECK: Supple. No mass. LUNGS: Clear bilaterally. ABDOMEN: Soft, nontender. HOSPITAL COURSE: During the hospitalization, the patient was admitted to the telemetry unit. The patient was initially treated with IV Rocephin. The patient's urine culture was checked and grew E. coli ESBL. The patient's medication was changed to IV Merrem. Frequent updates were given to patient's ____. The patient's blood pressure medications were held due to hypotension. The patient's blood pressure has improved. The patient was also being followed by make ready worker during hospitalization. The patient was receiving gentle IV fluids for hydration. There was a drop in the patient's hemoglobin, therefore, GI was consulted. No further recommendations. The patient was treated with PPIs and laxatives. The patient's stool OB was positive. The patient also had physical therapy evaluation here during hospitalization. CEA and CA-125 will check; however, currently pending. The patient's WBC has been within normal limits. No reports of any fevers during hospitalization. For this reason, the patient is stable for discharge. CONDITION UPON DISCHARGE: Fair. DISPOSITION: [facility] and to continue nitrofurantoin. JOB# [id number]
--- NOTE | 2018-11-20 12:29 | General Progress Note ---
Subjective - Review of Systems Service Date: 11/20/18 Subjective: Patient has no complaint of chest pain shortness of breath abdominal pain Objective - Results Result Diagrams: 11/20/18 06:16 11/20/18 06:16 Recent Labs: Laboratory Last Values WBC 7.2 Th/cmm (4.8-10.8) D 11/20/18 06:16 RBC 3.33 Mil/cmm (3.80-5.10) L 11/20/18 06:16 Hgb 9.6 gm/dL (12-16) L 11/20/18 06:16 Hct 29.2 % (41.0-60) L 11/20/18 06:16 MCV 87.9 fl (81-100) 11/20/18 06:16 MCH 28.8 pg (27.0-31.0) 11/20/18 06:16 MCHC Differential 32.7 pg (28.0-36.0) 11/20/18 06:16 RDW 15.2 % (11.5-20.0) 11/20/18 06:16 Plt Count 252 Th/cmm (150-400) D 11/20/18 06:16 MPV 8.5 fl 11/20/18 06:16 Add Manual Diff YES 11/19/18 06:30 Neutrophils % 74.5 % (40.0-80.0) 11/20/18 06:16 Band Neutrophils % 2 % (0-10) 11/19/18 06:30 Lymphocytes % 11.1 % (20.0-50.0) L 11/20/18 06:16 Monocytes % 9.3 % (2.0-10.0) 11/20/18 06:16 Eosinophils % 4.6 % (0.0-5.0) 11/20/18 06:16 Basophils % 0.5 % (0.0-2.0) 11/20/18 06:16 Neutrophils (Manual) 80 % (40-80) 11/19/18 06:30 Lymphocytes 12 % (20-50) L 11/19/18 06:30 Monocytes 5 % (2-10) 11/19/18 06:30 Eosinophils 1 % (0-5) 11/19/18 06:30 Basophils 0 % (0-3) 11/19/18 06:30 Platelet Estimate (NORMAL) 11/19/18 06:30 RBC Morph Micro Appear (NORMAL) 11/19/18 06:30 Eos Smear Source URINE 11/15/18 21:30 Eos Smear Total Cells NONE SEEN (NONE SEEN) 11/15/18 21:30 PT 11.0 SECONDS (9.5-11.5) 11/14/18 21:10 INR 1.06 (0.5-1.4) 11/14/18 21:10 PTT (Actin FS) 32.2 SECONDS (26.0-38.0) 11/14/18 21:10 Sodium 140 mEq/L (136-145) 11/20/18 06:16 Potassium 4.3 mEq/L (3.5-5.1) 11/20/18 06:16 Chloride 108 mEq/L (98-107) H 11/20/18 06:16 Carbon Dioxide 25.9 mEq/L (21.0-31.0) 11/20/18 06:16 Anion Gap 10.4 (7.0-16.0) 11/20/18 06:16 BUN 34 mg/dL (7-25) H 11/20/18 06:16 Creatinine 0.8 mg/dL (0.6-1.2) 11/20/18 06:16 Est GFR ( Amer) > 60.0 ml/min (>90) 11/20/18 06:16 Est GFR (Non-Af Amer) > 60.0 ml/min 11/20/18 06:16 BUN/Creatinine Ratio 42.5 11/20/18 06:16 Glucose 261 mg/dL (70-105) H 11/20/18 06:16 POC Glucose 214 MG/DL (70 - 105) H 11/20/18 12:06 Uric Acid 8.8 mg/dL (2.3-6.6) H 11/16/18 06:20 Calcium 8.6 mg/dL (8.6-10.3) 11/20/18 06:16 Phosphorus 2.9 mg/dL (2.5-5.0) 11/16/18 06:20 Magnesium 2.2 mg/dL (1.9-2.7) 11/16/18 06:20 B-Natriuretic Peptide 76.2 pg/mL (5.0-100.0) 11/14/18 21:10 TSH 2.40 uIU/ml (0.34-5.60) 11/14/18 21:10 Urine Source [place] 11/14/18 21:40 Urine Color YELLOW 11/14/18 21:40 Urine Clarity CLOUDY (CLEAR) H 11/14/18 21:40 Urine pH 6.0 (4.6 - 8.0) 11/14/18 21:[address] 1.015 (1.005-1.030) 11/14/18 21:40 Urine Protein 100 mg/dL (NEGATIVE) H 11/14/18 21:40 Urine Glucose (UA) NEGATIVE mg/dL (NEGATIVE) 11/14/18 21:40 Urine Ketones NEGATIVE mg/dL (NEGATIVE) 11/14/18 21:40 Urine Blood LARGE (NEGATIVE) H 11/14/18 21:40 Urine Nitrate NEGATIVE (NEGATIVE) 11/14/18 21:40 Urine Bilirubin NEGATIVE (NEGATIVE) 11/14/18 21:40 Urine Urobilinogen 0.2 E.U./dL (0.2 - 1.0) 11/14/18 21:40 Ur Leukocyte Esterase MODERATE (NEGATIVE) H 11/14/18 21:40 Urine RBC 5-10 /hpf (0-5) H 11/14/18 21:40 Urine WBC 25-50 /hpf (0-5) H 11/14/18 21:40 Ur Epithelial Cells FEW /lpf (FEW) 11/14/18 21:40 Urine Bacteria MANY /hpf (NONE SEEN) H 11/14/18 21:40 Urine Creatinine 35.0 mg/dl (28.0-217.0) 11/15/18 21:30 Microalb/Creat Ratio 305.9 mg/g creat (0.0-30.0) H 11/15/18 21:30 Stool Occult Blood POSITIVE (NEGATIVE) H 11/16/18 19:00 - Physical Exam Vitals and I&O: Vital Signs Temp 98.7 F 11/20/18 08:58 Pulse 70 11/20/18 08:58 Resp 18 11/20/18 08:58 BP 108/46 11/20/18 08:58 Pulse Ox 98 11/20/18 08:58 Intake & Output 11/19/18 11/20/18 11/20/18 18:59 06:59 18:59 Intake Total 700 1568.333 Balance 700 1568.333 Weight (lbs) 165.561 kg 185.655 kg Intake: Intake, IV Amount 200 1208.333 Meropenem 1 gm In Sodium 200 100 Chloride 0.9% 100 ml @ 100 mls/hr IV Q12H [facility] Rx #:[id number] Sodium Chloride 0.9% 1, 1108.333 000 ml @ 100 mls/hr IV . Q10H [facility] Rx#:[id number] Oral 500 360 Other: # Voids 4 4 # Bowel Movements 1 Weight Source Bedscale Bedscale Active Medications: Current Medications Acetaminophen/Hydrocodone Bitart ([place] 5mg/325mg) 1 tab PO Q8H PRN PRN Reason: Pain (Severe) Stop: 01/14/19 21:40 Last Admin: 11/20/18 08:22 Dose: 1 tab Ascorbic Acid (Vitamin C) 500 mg PO BID [facility] Stop: 01/14/19 08:59 Last Admin: 11/20/18 08:22 Dose: 500 mg Atorvastatin Calcium (Lipitor) 10 mg PO HS [facility]; Protocol Stop: 01/14/19 20:59 Last Admin: 11/19/18 21:03 Dose: 10 mg Bisacodyl (Dulcolax 5 Mg Ec Tab) 10 mg PO DAILY [facility] Stop: 01/16/19 14:29 Last Admin: 11/20/18 08:22 Dose: 10 mg Bupropion HCl (Wellbutrin Xl) 150 mg PO DAILY [facility]; Protocol Stop: 01/14/19 08:59 Last Admin: 11/20/18 08:34 Dose: 150 mg Carvedilol (Coreg) 12.5 mg PO BIDWM [facility] Stop: 01/14/19 08:59 Last Admin: 11/20/18 08:32 Dose: Not Given Diltiazem HCl (Cardizem Cd) 120 mg PO DAILY [facility] Stop: 01/14/19 08:59 Last Admin: 11/20/18 08:23 Dose: 120 mg Duloxetine HCl (Cymbalta) 30 mg PO DAILY [facility]; Protocol Stop: 01/14/19 08:59 Last Admin: 11/20/18 08:23 Dose: 30 mg Epoetin Amaury (Epogen) 10,000 units SUBQ TuTa [facility] Stop: 01/14/19 15:44 Last Admin: 11/18/18 16:42 Dose: 10,000 units Ferrous Sulfate (Iron) 325 mg PO BID [facility] Stop: 01/14/19 08:59 Last Admin: 11/20/18 08:23 Dose: 325 mg Gabapentin (Neurontin) 600 mg PO BID [facility] Stop: 01/14/19 08:59 Last Admin: 11/20/18 08:23 Dose: 600 mg Sodium Chloride (Nacl 0.9%) 1,000 mls @ 100 mls/hr IV .Q10H [facility] Stop: 01/14/19 15:14 Last Admin: 11/20/18 04:33 Dose: 100 mls/hr Insulin Glargine (Lantus Insulin) 54 units SUBQ HS [facility] Stop: 01/14/19 20:59 Last Admin: 11/19/18 21:02 Dose: 54 units Insulin Human Lispro (Humalog Insulin Sliding Scale) 0 units SUBQ ACHS [facility]; Protocol Stop: 01/14/19 07:29 Last Admin: 11/20/18 12:18 Dose: 6 units Miscellaneous (Misc Oral Tab) 2 tab PO BID [facility]; Protocol Stop: 01/14/19 08:59 Last Admin: 11/20/18 08:31 Dose: 2 tab Pantoprazole Sodium (Protonix) 40 mg IVP DAILY [facility] Stop: 01/14/19 08:59 Last Admin: 11/20/18 08:23 Dose: 40 mg Pioglitazone HCl (Actos) 30 mg PO QDAC [facility] Stop: 01/14/19 07:29 Last Admin: 11/20/18 06:38 Dose: 30 mg Potassium Chloride (Klor-Con) 20 meq PO DAILY [facility] Stop: 01/15/19 17:59 Last Admin: 11/20/18 08:23 Dose: 20 meq Trazodone HCl (Desyrel) 50 mg PO HS [facility]; Protocol Stop: 01/14/19 20:59 Last Admin: 11/19/18 21:03 Dose: 50 mg Vitamin B Complex/Vit C/Folic Acid (Vitamin B Complex W/Vitamin C) 1 tab PO DAILY [facility] Stop: 01/14/19 08:59 Last Admin: 11/20/18 08:22 Dose: 1 tab Zinc Sulfate (Zinc Sulfate) 220 mg PO DAILY [facility] Stop: 01/14/19 08:59 Last Admin: 11/20/18 08:22 Dose: 220 mg General: Alert, Moderate distress HEENT: Atraumatic, Mucous membr. moist/pink Neck: Supple, Thyromegaly, +2 carotid pulse wo bruit Cardiovascular: Regular rate, Normal S1, Normal S2 Lungs: Clear to auscultation Abdomen: Bowel sounds, Soft Extremities: no Edema Neurological: Sensation intact Skin: no Rash Psych/Mental Status: Mood NL Assessment/Plan - Assessment Assessment: Uterine cancer Right leg cellulitis Diabetes mellitus type 2 Diabetic security stage III Major depression GI bleed with anemia stool for occult blood positive Angina stable Obesity iron deficiency anemia Congenital horseshoe kidney bilateral - Plan Plan: Patient to continue present management and awaiting GI evaluation Nutritional Asmnt/Malnutr-PDOC - Dietary Evaluation Malnutrition Findings (Please click <Entered> for more info): Nutritional Asmnt/Malnutrition Start: 11/15/18 12: 21 Text: Status: Complete Freq: Protocol: Document 11/15/18 12:21 MERCEDES (Rec: 11/15/18 12:35 [email or web address] [id number]) Nutritional Asmnt/Malnutrition Patient General Information Nutritional Screening High Risk Diagnosis UTI & Dehydration Pertinent Medical Hx/Surgical Hx HTN, CHF, COPD, acute renal failure, type 2 diabetes Subjective Information Patient was admitted from alf; on dialysis at time of visit. Patient crying. Current Diet Order/ Nutrition Support Cardiac Patient / S.O Not Indicated Pertinent Medications vitmain C, Lipitor, Iron, Lantus, Humalog, protonix, Vitamin B complex with C, zinc sulfate Pertinent Labs (11/14) Na 135, K 3.3, BUN 136, Cr 1.5, Mg 1.8, glucose 141- 200 Nutritional Hx/Data Height 1.7 m Height (Calculated Centimeters) 170.2 Current Weight (lbs) 164.2 kg Weight (Calculated Kilograms) 164.2 Weight (Calculated Grams) 898364.4 Talent Body Weight 148 % Talent Body Weight 244 Body Mass Index (BMI) 56.7 Recent Weight Change No Weight Status Morbidly Obese GI Symptoms GI Symptoms None Last BM none noted since admission Difficult in: None Food Allergies No Cultural/Ethnic/Sabianism Belief none indicated Usual diet at home unknown Skin Integrity/Comment: [place] 14, skin tear Current %PO Good (75-100%) Estimated Nutritional Goals BEE in Kcals: Adj wt of IBW Calories/Kcals/Kg using Adj BW 91.5kg Kcals Calculated ~3480-6128 kcal/day Protein: Adj wt of IBW Protein g/k-1.2 gm/kg Protein Calculated 90-110 gm/day Fluid: ml ~4832-6149 ml/day (1 ml/kcal) Nutritional Problem 1. Problem Problem Altered nutrition related lab values related to Etiology electrolyte imbalance and hyperglycemia aeb Signs/Symptoms: Na 135, K 3.3, mg 1.8, glucose 141-200 Intervention/Recommendation Comments 1. Consider modifying diet to 60 gm CCHO. No need for renal diet at this time due to hypokalemia, no need for low potassium diet. Check phosphorus level to determine need for dietary phosphorus restriction. Current diet is low in sodium. Expected Outcomes/Goals Expected Outcomes/Goals Oral itnake >75% of meals, weight stable, nutrition related labs WNL F/U MR
--- NOTE | 2018-11-20 13:23 | GI Progress Note ---
Subjective - Review of Systems Service Date: 11/20/18 Events since last encounter: no events Objective - Results Result Diagrams: 11/20/18 06:16 11/20/18 06:16 Recent Labs: Laboratory Last Values WBC 7.2 Th/cmm (4.8-10.8) D 11/20/18 06:16 RBC 3.33 Mil/cmm (3.80-5.10) L 11/20/18 06:16 Hgb 9.6 gm/dL (12-16) L 11/20/18 06:16 Hct 29.2 % (41.0-60) L 11/20/18 06:16 MCV 87.9 fl (81-100) 11/20/18 06:16 MCH 28.8 pg (27.0-31.0) 11/20/18 06:16 MCHC Differential 32.7 pg (28.0-36.0) 11/20/18 06:16 RDW 15.2 % (11.5-20.0) 11/20/18 06:16 Plt Count 252 Th/cmm (150-400) D 11/20/18 06:16 MPV 8.5 fl 11/20/18 06:16 Add Manual Diff YES 11/19/18 06:30 Neutrophils % 74.5 % (40.0-80.0) 11/20/18 06:16 Band Neutrophils % 2 % (0-10) 11/19/18 06:30 Lymphocytes % 11.1 % (20.0-50.0) L 11/20/18 06:16 Monocytes % 9.3 % (2.0-10.0) 11/20/18 06:16 Eosinophils % 4.6 % (0.0-5.0) 11/20/18 06:16 Basophils % 0.5 % (0.0-2.0) 11/20/18 06:16 Neutrophils (Manual) 80 % (40-80) 11/19/18 06:30 Lymphocytes 12 % (20-50) L 11/19/18 06:30 Monocytes 5 % (2-10) 11/19/18 06:30 Eosinophils 1 % (0-5) 11/19/18 06:30 Basophils 0 % (0-3) 11/19/18 06:30 Platelet Estimate (NORMAL) 11/19/18 06:30 RBC Morph Micro Appear (NORMAL) 11/19/18 06:30 Eos Smear Source URINE 11/15/18 21:30 Eos Smear Total Cells NONE SEEN (NONE SEEN) 11/15/18 21:30 PT 11.0 SECONDS (9.5-11.5) 11/14/18 21:10 INR 1.06 (0.5-1.4) 11/14/18 21:10 PTT (Actin FS) 32.2 SECONDS (26.0-38.0) 11/14/18 21:10 Sodium 140 mEq/L (136-145) 11/20/18 06:16 Potassium 4.3 mEq/L (3.5-5.1) 11/20/18 06:16 Chloride 108 mEq/L (98-107) H 11/20/18 06:16 Carbon Dioxide 25.9 mEq/L (21.0-31.0) 11/20/18 06:16 Anion Gap 10.4 (7.0-16.0) 11/20/18 06:16 BUN 34 mg/dL (7-25) H 11/20/18 06:16 Creatinine 0.8 mg/dL (0.6-1.2) 11/20/18 06:16 Est GFR ( Amer) > 60.0 ml/min (>90) 11/20/18 06:16 Est GFR (Non-Af Amer) > 60.0 ml/min 11/20/18 06:16 BUN/Creatinine Ratio 42.5 11/20/18 06:16 Glucose 261 mg/dL (70-105) H 11/20/18 06:16 POC Glucose 214 MG/DL (70 - 105) H 11/20/18 12:06 Uric Acid 8.8 mg/dL (2.3-6.6) H 11/16/18 06:20 Calcium 8.6 mg/dL (8.6-10.3) 11/20/18 06:16 Phosphorus 2.9 mg/dL (2.5-5.0) 11/16/18 06:20 Magnesium 2.2 mg/dL (1.9-2.7) 11/16/18 06:20 B-Natriuretic Peptide 76.2 pg/mL (5.0-100.0) 11/14/18 21:10 TSH 2.40 uIU/ml (0.34-5.60) 11/14/18 21:10 Urine Source [place] 11/14/18 21:40 Urine Color YELLOW 11/14/18 21:40 Urine Clarity CLOUDY (CLEAR) H 11/14/18 21:40 Urine pH 6.0 (4.6 - 8.0) 11/14/18 21:40 Ur Specific [place] 1.015 (1.005-1.030) 11/14/18 21:40 Urine Protein 100 mg/dL (NEGATIVE) H 11/14/18 21:40 Urine Glucose (UA) NEGATIVE mg/dL (NEGATIVE) 11/14/18 21:40 Urine Ketones NEGATIVE mg/dL (NEGATIVE) 11/14/18 21:40 Urine Blood LARGE (NEGATIVE) H 11/14/18 21:40 Urine Nitrate NEGATIVE (NEGATIVE) 11/14/18 21:40 Urine Bilirubin NEGATIVE (NEGATIVE) 11/14/18 21:40 Urine Urobilinogen 0.2 E.U./dL (0.2 - 1.0) 11/14/18 21:40 Ur Leukocyte Esterase MODERATE (NEGATIVE) H 11/14/18 21:40 Urine RBC 5-10 /hpf (0-5) H 11/14/18 21:40 Urine WBC 25-50 /hpf (0-5) H 11/14/18 21:40 Ur Epithelial Cells FEW /lpf (FEW) 11/14/18 21:40 Urine Bacteria MANY /hpf (NONE SEEN) H 11/14/18 21:40 Urine Creatinine 35.0 mg/dl (28.0-217.0) 11/15/18 21:30 Microalb/Creat Ratio 305.9 mg/g creat (0.0-30.0) H 11/15/18 21:30 Stool Occult Blood POSITIVE (NEGATIVE) H 11/16/18 19:00 - Physical Exam Vitals and I&O: Vital Signs Temp 98.7 F 11/20/18 08:58 Pulse 70 11/20/18 08:58 Resp 18 11/20/18 08:58 BP 108/46 11/20/18 08:58 Pulse Ox 98 11/20/18 08:58 Intake & Output 11/19/18 11/20/18 11/20/18 18:59 06:59 18:59 Intake Total 700 1568.333 Balance 700 1568.333 Weight (lbs) 165.561 kg 185.655 kg Intake: Intake, IV Amount 200 1208.333 Meropenem 1 gm In Sodium 200 100 Chloride 0.9% 100 ml @ 100 mls/hr IV Q12H [facility] Rx #:[id number] Sodium Chloride 0.9% 1, 1108.333 000 ml @ 100 mls/hr IV . Q10H [facility] Rx#:[id number] Oral 500 360 Other: # Voids 4 4 # Bowel Movements 1 Weight Source Bedscale Bedscale Active Medications: Current Medications Acetaminophen/Hydrocodone Bitart ([place] 5mg/325mg) 1 tab PO Q8H PRN PRN Reason: Pain (Severe) Stop: 01/14/19 21:40 Last Admin: 11/20/18 08:22 Dose: 1 tab Ascorbic Acid (Vitamin C) 500 mg PO BID [facility] Stop: 01/14/19 08:59 Last Admin: 11/20/18 08:22 Dose: 500 mg Atorvastatin Calcium (Lipitor) 10 mg PO HS [facility]; Protocol Stop: 01/14/19 20:59 Last Admin: 11/19/18 21:03 Dose: 10 mg Bisacodyl (Dulcolax 5 Mg Ec Tab) 10 mg PO DAILY [facility] Stop: 01/16/19 14:29 Last Admin: 11/20/18 08:22 Dose: 10 mg Bupropion HCl (Wellbutrin Xl) 150 mg PO DAILY [facility]; Protocol Stop: 01/14/19 08:59 Last Admin: 11/20/18 08:34 Dose: 150 mg Carvedilol (Coreg) 12.5 mg PO BIDWM [facility] Stop: 01/14/19 08:59 Last Admin: 11/20/18 08:32 Dose: Not Given Diltiazem HCl (Cardizem Cd) 120 mg PO DAILY [facility] Stop: 01/14/19 08:59 Last Admin: 11/20/18 08:23 Dose: 120 mg Duloxetine HCl (Cymbalta) 30 mg PO DAILY [facility]; Protocol Stop: 01/14/19 08:59 Last Admin: 11/20/18 08:23 Dose: 30 mg Epoetin Amaury (Epogen) 10,000 units SUBQ TuTa [facility] Stop: 01/14/19 15:44 Last Admin: 11/18/18 16:42 Dose: 10,000 units Ferrous Sulfate (Iron) 325 mg PO BID [facility] Stop: 01/14/19 08:59 Last Admin: 11/20/18 08:23 Dose: 325 mg Gabapentin (Neurontin) 600 mg PO BID [facility] Stop: 01/14/19 08:59 Last Admin: 11/20/18 08:23 Dose: 600 mg Sodium Chloride (Nacl 0.9%) 1,000 mls @ 100 mls/hr IV .Q10H [facility] Stop: 01/14/19 15:14 Last Admin: 11/20/18 04:33 Dose: 100 mls/hr Insulin Glargine (Lantus Insulin) 54 units SUBQ HS [facility] Stop: 01/14/19 20:59 Last Admin: 11/19/18 21:02 Dose: 54 units Insulin Human Lispro (Humalog Insulin Sliding Scale) 0 units SUBQ ACHS [facility]; Protocol Stop: 01/14/19 07:29 Last Admin: 11/20/18 12:18 Dose: 6 units Miscellaneous (Misc Oral Tab) 2 tab PO BID [facility]; Protocol Stop: 01/14/19 08:59 Last Admin: 11/20/18 08:31 Dose: 2 tab Pantoprazole Sodium (Protonix) 40 mg IVP DAILY [facility] Stop: 01/14/19 08:59 Last Admin: 11/20/18 08:23 Dose: 40 mg Pioglitazone HCl (Actos) 30 mg PO QDAC [facility] Stop: 01/14/19 07:29 Last Admin: 11/20/18 06:38 Dose: 30 mg Potassium Chloride (Klor-Con) 20 meq PO DAILY [facility] Stop: 01/15/19 17:59 Last Admin: 11/20/18 08:23 Dose: 20 meq Trazodone HCl (Desyrel) 50 mg PO HS [facility]; Protocol Stop: 01/14/19 20:59 Last Admin: 11/19/18 21:03 Dose: 50 mg Vitamin B Complex/Vit C/Folic Acid (Vitamin B Complex W/Vitamin C) 1 tab PO DAILY [facility] Stop: 01/14/19 08:59 Last Admin: 11/20/18 08:22 Dose: 1 tab Zinc Sulfate (Zinc Sulfate) 220 mg PO DAILY [facility] Stop: 01/14/19 08:59 Last Admin: 11/20/18 08:22 Dose: 220 mg General: Alert, Moderate distress HEENT: Atraumatic, Mucous membr. moist/pink Neck: Supple, Thyromegaly, +2 carotid pulse wo bruit Cardiovascular: Regular rate, Normal S1, Normal S2 Lungs: Clear to auscultation Abdomen: Bowel sounds, Soft Extremities: no Edema Neurological: Sensation intact Skin: no Rash Psych/Mental Status: Mood NL Assessment/Plan - Assessment Assessment: 1. Abdominal Pain 2, ESRD 3. Probable IBS-C -continue with supportive care and management -bowel regimen miralax daily -stool softeners -will follow
--- NOTE | 2018-11-20 13:31 | General Progress Note ---
Subjective - Review of Systems Service Date: 11/20/18 Subjective: alert, less lower abd pain, had BM Objective - Results Result Diagrams: 11/20/18 06:16 11/20/18 06:16 Recent Labs: Laboratory Last Values WBC 7.2 Th/cmm (4.8-10.8) D 11/20/18 06:16 RBC 3.33 Mil/cmm (3.80-5.10) L 11/20/18 06:16 Hgb 9.6 gm/dL (12-16) L 11/20/18 06:16 Hct 29.2 % (41.0-60) L 11/20/18 06:16 MCV 87.9 fl (81-100) 11/20/18 06:16 MCH 28.8 pg (27.0-31.0) 11/20/18 06:16 MCHC Differential 32.7 pg (28.0-36.0) 11/20/18 06:16 RDW 15.2 % (11.5-20.0) 11/20/18 06:16 Plt Count 252 Th/cmm (150-400) D 11/20/18 06:16 MPV 8.5 fl 11/20/18 06:16 Add Manual Diff YES 11/19/18 06:30 Neutrophils % 74.5 % (40.0-80.0) 11/20/18 06:16 Band Neutrophils % 2 % (0-10) 11/19/18 06:30 Lymphocytes % 11.1 % (20.0-50.0) L 11/20/18 06:16 Monocytes % 9.3 % (2.0-10.0) 11/20/18 06:16 Eosinophils % 4.6 % (0.0-5.0) 11/20/18 06:16 Basophils % 0.5 % (0.0-2.0) 11/20/18 06:16 Neutrophils (Manual) 80 % (40-80) 11/19/18 06:30 Lymphocytes 12 % (20-50) L 11/19/18 06:30 Monocytes 5 % (2-10) 11/19/18 06:30 Eosinophils 1 % (0-5) 11/19/18 06:30 Basophils 0 % (0-3) 11/19/18 06:30 Platelet Estimate (NORMAL) 11/19/18 06:30 RBC Morph Micro Appear (NORMAL) 11/19/18 06:30 Eos Smear Source URINE 11/15/18 21:30 Eos Smear Total Cells NONE SEEN (NONE SEEN) 11/15/18 21:30 PT 11.0 SECONDS (9.5-11.5) 11/14/18 21:10 INR 1.06 (0.5-1.4) 11/14/18 21:10 PTT (Actin FS) 32.2 SECONDS (26.0-38.0) 11/14/18 21:10 Sodium 140 mEq/L (136-145) 11/20/18 06:16 Potassium 4.3 mEq/L (3.5-5.1) 11/20/18 06:16 Chloride 108 mEq/L (98-107) H 11/20/18 06:16 Carbon Dioxide 25.9 mEq/L (21.0-31.0) 11/20/18 06:16 Anion Gap 10.4 (7.0-16.0) 11/20/18 06:16 BUN 34 mg/dL (7-25) H 11/20/18 06:16 Creatinine 0.8 mg/dL (0.6-1.2) 11/20/18 06:16 Est GFR ( Amer) > 60.0 ml/min (>90) 11/20/18 06:16 Est GFR (Non-Af Amer) > 60.0 ml/min 11/20/18 06:16 BUN/Creatinine Ratio 42.5 11/20/18 06:16 Glucose 261 mg/dL (70-105) H 11/20/18 06:16 POC Glucose 214 MG/DL (70 - 105) H 11/20/18 12:06 Uric Acid 8.8 mg/dL (2.3-6.6) H 11/16/18 06:20 Calcium 8.6 mg/dL (8.6-10.3) 11/20/18 06:16 Phosphorus 2.9 mg/dL (2.5-5.0) 11/16/18 06:20 Magnesium 2.2 mg/dL (1.9-2.7) 11/16/18 06:20 B-Natriuretic Peptide 76.2 pg/mL (5.0-100.0) 11/14/18 21:10 TSH 2.40 uIU/ml (0.34-5.60) 11/14/18 21:10 Urine Source [place] 11/14/18 21:40 Urine Color YELLOW 11/14/18 21:40 Urine Clarity CLOUDY (CLEAR) H 11/14/18 21:40 Urine pH 6.0 (4.6 - 8.0) 11/14/18 21:40 Ur Specific [place] 1.015 (1.005-1.030) 11/14/18 21:40 Urine Protein 100 mg/dL (NEGATIVE) H 11/14/18 21:40 Urine Glucose (UA) NEGATIVE mg/dL (NEGATIVE) 11/14/18 21:40 Urine Ketones NEGATIVE mg/dL (NEGATIVE) 11/14/18 21:40 Urine Blood LARGE (NEGATIVE) H 11/14/18 21:40 Urine Nitrate NEGATIVE (NEGATIVE) 11/14/18 21:40 Urine Bilirubin NEGATIVE (NEGATIVE) 11/14/18 21:40 Urine Urobilinogen 0.2 E.U./dL (0.2 - 1.0) 11/14/18 21:40 Ur Leukocyte Esterase MODERATE (NEGATIVE) H 11/14/18 21:40 Urine RBC 5-10 /hpf (0-5) H 11/14/18 21:40 Urine WBC 25-50 /hpf (0-5) H 11/14/18 21:40 Ur Epithelial Cells FEW /lpf (FEW) 11/14/18 21:40 Urine Bacteria MANY /hpf (NONE SEEN) H 11/14/18 21:40 Urine Creatinine 35.0 mg/dl (28.0-217.0) 11/15/18 21:30 Microalb/Creat Ratio 305.9 mg/g creat (0.0-30.0) H 11/15/18 21:30 Stool Occult Blood POSITIVE (NEGATIVE) H 11/16/18 19:00 - Physical Exam Vitals and I&O: Vital Signs Temp 98.7 F 11/20/18 08:58 Pulse 70 11/20/18 08:58 Resp 18 11/20/18 08:58 BP 108/46 11/20/18 08:58 Pulse Ox 98 11/20/18 08:58 Intake & Output 04/24/19 04/25/19 04/25/19 18:59 06:59 18:59 Intake Total 700 1568.333 Balance 700 1568.333 Weight (lbs) 165.561 kg 185.655 kg Intake: Intake, IV Amount 200 1208.333 Meropenem 1 gm In Sodium 200 100 Chloride 0.9% 100 ml @ 100 mls/hr IV Q12H [facility] Rx #:[id number] Sodium Chloride 0.9% 1, 1108.333 000 ml @ 100 mls/hr IV . Q10H [facility] Rx#:[id number] Oral 500 360 Other: # Voids 4 4 # Bowel Movements 1 Weight Source Bedscale Bedscale Active Medications: Current Medications Acetaminophen/Hydrocodone Bitart ([place] 5mg/325mg) 1 tab PO Q8H PRN PRN Reason: Pain (Severe) Stop: 01/14/19 21:40 Last Admin: 11/20/18 08:22 Dose: 1 tab Ascorbic Acid (Vitamin C) 500 mg PO BID [facility] Stop: 01/14/19 08:59 Last Admin: 11/20/18 08:22 Dose: 500 mg Atorvastatin Calcium (Lipitor) 10 mg PO HS [facility]; Protocol Stop: 01/14/19 20:59 Last Admin: 11/19/18 21:03 Dose: 10 mg Bisacodyl (Dulcolax 5 Mg Ec Tab) 10 mg PO DAILY [facility] Stop: 01/16/19 14:29 Last Admin: 11/20/18 08:22 Dose: 10 mg Bupropion HCl (Wellbutrin Xl) 150 mg PO DAILY [facility]; Protocol Stop: 01/14/19 08:59 Last Admin: 11/20/18 08:34 Dose: 150 mg Carvedilol (Coreg) 12.5 mg PO BIDWM [facility] Stop: 01/14/19 08:59 Last Admin: 11/20/18 08:32 Dose: Not Given Diltiazem HCl (Cardizem Cd) 120 mg PO DAILY [facility] Stop: 01/14/19 08:59 Last Admin: 11/20/18 08:23 Dose: 120 mg Duloxetine HCl (Cymbalta) 30 mg PO DAILY [facility]; Protocol Stop: 01/14/19 08:59 Last Admin: 11/20/18 08:23 Dose: 30 mg Epoetin Amaury (Epogen) 10,000 units SUBQ TuTa [facility] Stop: 01/14/19 15:44 Last Admin: 11/18/18 16:42 Dose: 10,000 units Ferrous Sulfate (Iron) 325 mg PO BID [facility] Stop: 01/14/19 08:59 Last Admin: 11/20/18 08:23 Dose: 325 mg Gabapentin (Neurontin) 600 mg PO BID [facility] Stop: 01/14/19 08:59 Last Admin: 11/20/18 08:23 Dose: 600 mg Sodium Chloride (Nacl 0.9%) 1,000 mls @ 100 mls/hr IV .Q10H [facility] Stop: 01/14/19 15:14 Last Admin: 11/20/18 04:33 Dose: 100 mls/hr Insulin Glargine (Lantus Insulin) 54 units SUBQ HS [facility] Stop: 01/14/19 20:59 Last Admin: 11/19/18 21:02 Dose: 54 units Insulin Human Lispro (Humalog Insulin Sliding Scale) 0 units SUBQ ACHS [facility]; Protocol Stop: 01/14/19 07:29 Last Admin: 11/20/18 12:18 Dose: 6 units Miscellaneous (Misc Oral Tab) 2 tab PO BID [facility]; Protocol Stop: 01/14/19 08:59 Last Admin: 11/20/18 08:31 Dose: 2 tab Pantoprazole Sodium (Protonix) 40 mg IVP DAILY [facility] Stop: 01/14/19 08:59 Last Admin: 11/20/18 08:23 Dose: 40 mg Pioglitazone HCl (Actos) 30 mg PO QDAC [facility] Stop: 01/14/19 07:29 Last Admin: 11/20/18 06:38 Dose: 30 mg Potassium Chloride (Klor-Con) 20 meq PO DAILY [facility] Stop: 01/15/19 17:59 Last Admin: 11/20/18 08:23 Dose: 20 meq Trazodone HCl (Desyrel) 50 mg PO HS [facility]; Protocol Stop: 01/14/19 20:59 Last Admin: 11/19/18 21:03 Dose: 50 mg Vitamin B Complex/Vit C/Folic Acid (Vitamin B Complex W/Vitamin C) 1 tab PO DAILY [facility] Stop: 01/14/19 08:59 Last Admin: 11/20/18 08:22 Dose: 1 tab Zinc Sulfate (Zinc Sulfate) 220 mg PO DAILY [facility] Stop: 01/14/19 08:59 Last Admin: 11/20/18 08:22 Dose: 220 mg General: Alert, Moderate distress HEENT: Atraumatic, Mucous membr. moist/pink Neck: Supple, Thyromegaly, +2 carotid pulse wo bruit Cardiovascular: Regular rate, Normal S1, Normal S2 Lungs: Clear to auscultation Abdomen: Bowel sounds, Soft Extremities: no Edema Neurological: Sensation intact Skin: no Rash Psych/Mental Status: Mood NL Assessment/Plan - Assessment Assessment: BARRY on CKD Lower abd pain Stool OB (+) Recurrent UTI T2DM w/ CKD Ess Htn W/ CKD Right LE Cellulitis Hx Uterinne CA S/P SABIHA Morbid Obese Fecal Impaction - Plan Plan: Lab - Result Diagrams 11/16/18 06:20 11/16/18 06:20 Current Medications Acetaminophen/Hydrocodone Bitart ([place] 5mg/325mg) 1 tab PO Q8H PRN PRN Reason: Pain (Severe) Stop: 01/14/19 21:40 Last Admin: 11/16/18 06:36 Dose: 1 tab Albuterol Sulfate (Albuterol 2.5mg/3ml Neb Ud) 2.5 mg HHN Q2H PRN PRN Reason: Shortness of Breath or Wheeze Stop: 01/14/19 01:40 Ascorbic Acid (Vitamin C) 500 mg PO BID [facility] Stop: 01/14/19 08:59 Last Admin: 11/16/18 17:29 Dose: 500 mg Atorvastatin Calcium (Lipitor) 10 mg PO HS [facility]; Protocol Stop: 01/14/19 20:59 Last Admin: 11/15/18 20:24 Dose: 10 mg Bupropion HCl (Wellbutrin Xl) 150 mg PO DAILY [facility]; Protocol Stop: 01/14/19 08:59 Last Admin: 11/16/18 09:54 Dose: 150 mg Buspirone HCl (Buspar) 20 mg PO BID [facility]; Protocol Stop: 01/14/19 08:59 Last Admin: 11/16/18 17:29 Dose: 20 mg Carvedilol (Coreg) 12.5 mg PO BIDWM [facility] Stop: 01/14/19 08:59 Last Admin: 11/16/18 08:00 Dose: Not Given Diltiazem HCl (Cardizem Cd) 120 mg PO DAILY [facility] Stop: 01/14/19 08:59 Last Admin: 11/16/18 09:53 Dose: 120 mg Duloxetine HCl (Cymbalta) 30 mg PO DAILY [facility]; Protocol Stop: 01/14/19 08:59 Last Admin: 11/16/18 09:52 Dose: 30 mg Epoetin Amaury (Epogen) 10,000 units SUBQ TuThSa [facility] Stop: 01/14/19 15:44 Last Admin: 11/16/18 10:03 Dose: 10,000 units Ferrous Sulfate (Iron) 325 mg PO BID [facility] Stop: 01/14/19 08:59 Last Admin: 11/16/18 17:29 Dose: 325 mg Gabapentin (Neurontin) 600 mg PO BID [facility] Stop: 01/14/19 08:59 Last Admin: 11/16/18 17:29 Dose: 600 mg Ceftriaxone Sodium 1 gm/ (Sodium Chloride) 50 mls @ 100 mls/hr IV Q24HR [facility] Stop: 01/14/19 10:14 Last Admin: 11/16/18 12:51 Dose: 100 mls/hr Sodium Chloride (Nacl 0.9%) 1,000 mls @ 100 mls/hr IV .Q10H [facility] Stop: 01/14/19 15:14 Last Admin: 11/16/18 17:21 Dose: 100 mls/hr Insulin Glargine (Lantus Insulin) 54 units SUBQ HS [facility] Stop: 01/14/19 20:59 Last Admin: 11/15/18 20:25 Dose: 54 units Insulin Human Lispro (Humalog Insulin Sliding Scale) 0 units SUBQ ACHS [facility]; Protocol Stop: 01/14/19 07:29 Last Admin: 11/16/18 17:28 Dose: 6 units Ipratropium [place] (Atrovent Neb 0.5mg/2.5ml) 0.5 mg HHN Q2HR PRN PRN Reason: Shortness of Breath or Wheeze Stop: 01/14/19 01:40 Lorazepam (Ativan) 1 mg PO Q6HR PRN; Protocol PRN Reason: Agitation Stop: 01/14/19 21:42 Last Admin: 11/16/18 13:33 Dose: 1 mg Pantoprazole Sodium (Protonix) 40 mg IVP DAILY [facility] Stop: 01/14/19 08:59 Last Admin: 11/16/18 09:54 Dose: 40 mg Pioglitazone HCl (Actos) 30 mg PO QDAC [facility] Stop: 01/14/19 07:29 Last Admin: 11/16/18 06:36 Dose: 30 mg Trazodone HCl (Desyrel) 50 mg PO HS [facility]; Protocol Stop: 01/14/19 20:59 Last Admin: 11/15/18 20:24 Dose: 50 mg Vitamin B Complex/Vit C/Folic Acid (Vitamin B Complex W/Vitamin C) 1 tab PO DAILY [facility] Stop: 01/14/19 08:59 Last Admin: 11/16/18 09:52 Dose: 1 tab Zinc Sulfate (Zinc Sulfate) 220 mg PO DAILY [facility] Stop: 01/14/19 08:59 Last Admin: 11/16/18 09:52 Dose: 220 Lab - Result Diagrams 11/20/18 06:16 11/20/18 06:16 Kidney fnc better w/ BUN/CR 34/0.8 replace K Stool for OB (+) agree DC to ECF Nutritional Asmnt/Malnutr-PDOC - Dietary Evaluation Malnutrition Findings (Please click <Entered> for more info): Nutritional Asmnt/Malnutrition Start: 11/15/18 12: 21 Text: Status: Complete Freq: Protocol: Document 11/15/18 12:21 MMULN (Rec: 11/15/18 12:35 [email or web address] [id number]) Nutritional Asmnt/Malnutrition Patient General Information Nutritional Screening High Risk Diagnosis UTI & Dehydration Pertinent Medical Hx/Surgical Hx HTN, CHF, COPD, acute renal failure, type 2 diabetes Subjective Information Patient was admitted from skilled nursing; on dialysis at time of visit. Patient crying. Current Diet Order/ Nutrition Support Cardiac Patient / S.O Not Indicated Pertinent Medications vitmain C, Lipitor, Iron, Lantus, Humalog, protonix, Vitamin B complex with C, zinc sulfate Pertinent Labs (11/14) Na 135, K 3.3, BUN 136, Cr 1.5, Mg 1.8, glucose 141- 200 Nutritional Hx/Data Height 1.7 m Height (Calculated Centimeters) 170.2 Current Weight (lbs) 164.2 kg Weight (Calculated Kilograms) 164.2 Weight (Calculated Grams) 735258.4 [place] Body Weight 148 % [place] Body Weight 244 Body Mass Index (BMI) 56.7 Recent Weight Change No Weight Status Morbidly Obese GI Symptoms GI Symptoms None Last BM none noted since admission Difficult in: None Food Allergies No Cultural/Ethnic/Christianity Belief none indicated Usual diet at home unknown Skin Integrity/Comment: [place] 14, skin tear Current %PO Good (75-100%) Estimated Nutritional Goals BEE in Kcals: Adj wt of IBW Calories/Kcals/Kg using Adj BW 91.5kg Kcals Calculated ~0887-7002 kcal/day Protein: Adj wt of IBW Protein g/k-1.2 gm/kg Protein Calculated 90-110 gm/day Fluid: ml ~3538-8910 ml/day (1 ml/kcal) Nutritional Problem 1. Problem Problem Altered nutrition related lab values related to Etiology electrolyte imbalance and hyperglycemia aeb Signs/Symptoms: Na 135, K 3.3, mg 1.8, glucose 141-200 Intervention/Recommendation Comments 1. Consider modifying diet to 60 gm CCHO. No need for renal diet at this time due to hypokalemia, no need for low potassium diet. Check phosphorus level to determine need for dietary phosphorus restriction. Current diet is low in sodium. Expected Outcomes/Goals Expected Outcomes/Goals Oral itnake >75% of meals, weight stable, nutrition related labs WNL F/U MR
[2018-11-20] MEDS: Epoetin Alfa 20000 Units/mL Vial SUBQ SCH (16:38)
[2018-11-20] MEDS: Atorvastatin Calcium 10 MG TAB PO SCH (20:43)
[2018-11-20] MEDS: Insulin Glargine 100 units/ml 10ml Vial SUBQ SCH (20:43)
[2018-11-21] MEDS ORDERED: Hydrocodone/APAP 5mg/325mg Tab ONE (00:27)
[2018-11-21] MEDS ORDERED: GLUCAGON HCl 1 MG KIT IM PRN (04:15)
[2018-11-21] MEDS ORDERED: Dextrose 50% 50 mL Abboject IVP PRN (04:15)
[2018-11-21] MEDS: INSULIN LISPRO SLIDING SCALE 100 UNITS/ML UNIT SUBQ SCH ×3 (06:33→12:04)
[2018-11-21] MEDS: Ipratropium Neb 0.5 mg/2.5 mL UD HHN SCH ×2 (06:45→10:50)
[2018-11-24 12:46] LABS: CA 125 (OVARIAN) SEE REF. LAB REPORT; CARCINOEMBRYONIC ANTIGEN SEE REF. LAB REPORT
== END 2018-11-21 13:15 | DRG 254 ==
LOC: ER 20:18 → TELE 11-15 01:49 → UNDODISIN 11-20 20:00
PROVIDERS: ADMIT Internal Medicine; ATTEND Internal Medicine
DX: K58.1 Irritable bowel syndrome with constipation (principal); N17.0 Acute kidney failure with tubular necrosis; I13.2 Hypertensive heart and chronic kidney disease with heart failure and with stage 5 chronic kidney disease, or end stage renal disease; K92.2 Gastrointestinal hemorrhage, unspecified; E11.22 Type 2 diabetes mellitus with diabetic chronic kidney disease; E66.01 Morbid (severe) obesity due to excess calories; E11.65 Type 2 diabetes mellitus with hyperglycemia; N39.0 Urinary tract infection, site not specified; L03.115 Cellulitis of right lower limb; E86.0 Dehydration; I50.9 Heart failure, unspecified; K59.00 Constipation, unspecified; D50.9 Iron deficiency anemia, unspecified; E78.5 Hyperlipidemia, unspecified; F32.9 Major depressive disorder, single episode, unspecified; Q63.1 Lobulated, fused and horseshoe kidney; Z85.42 Personal history of malignant neoplasm of other parts of uterus; Z88.8 Allergy status to other drugs, medicaments and biological substances; Z83.3 Family history of diabetes mellitus; Z82.49 Family history of ischemic heart disease and other diseases of the circulatory system; J44.9 Chronic obstructive pulmonary disease, unspecified; E87.6 Hypokalemia; Z71.3 Dietary counseling and surveillance; E83.42 Hypomagnesemia; Z90.710 Acquired absence of both cervix and uterus; N18.6 End stage renal disease; Z99.2 Dependence on renal dialysis; F41.9 Anxiety disorder, unspecified; Z68.44 Body mass index [BMI] 60.0-69.9, adult; I25.119 Atherosclerotic heart disease of native coronary artery with unspecified angina pectoris; B96.20 Unspecified Escherichia coli [E. coli] as the cause of diseases classified elsewhere
CPT/HCPCS: 36415-UA; 71045-TC; 74000-TC; 76700-TC; 76856-TC; 80048-TC; 81001-TC; 81015-TC; 82043-90; 82270-TC; 82378-90; 82570-TC; 82948-90; 83036-90; 83735-TC; 83880-TC; 84100-TC; 84443-TC; 84520-TC; 84550-TC; 85007-TC; 85025-TC; 85610-TC; 85730-TC; 86304-90; 87086-90; 90779; 93005; 94640; 94760; C9113; J0696; J0885; J1815; J2185; J3475; J7030; Z7610